=== PATIENT | female | born 1960 | race Caucasian/White ===

== ENCOUNTER 2022-09-22 15:27 | Outpatient (AMB) | payer OTHER, SELFPAY ==
--- NOTE | 2022-09-22 15:42 | A.OFFPC_ITS ---
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 Accompanied by: Self / Same As Patient Allergies cephalexin [Keflex] Allergy (Unknown, Verified 09/23/22 04:58) Unknown ciprofloxacin Allergy (Unknown, Verified 09/23/22 04:58) Unknown codeine Allergy (Unknown, Verified 09/23/22 04:58) codeine phosphate- unknown doxycycline Allergy (Unknown, Verified 09/23/22 04:58) pruritic rash duloxetine [Cymbalta] Allergy (Unknown, Verified 09/23/22 04:58) swelling of throat and tongue levofloxacin Allergy (Unknown, Verified 09/23/22 04:58) Unknown NSAIDS (Non-Steroidal Anti-Inflamma Allergy (Unknown, Verified 09/23/22 04:58) Unknown penicillin V Allergy (Unknown, Verified 09/23/22 04:58) Unknown prednisone Allergy (Unknown, Verified 09/23/22 04:58) Unknown Sulfa (Sulfonamide Antibiotics) Allergy (Unknown, Verified 09/23/22 04:58) Unknown theophylline Allergy (Unknown, Verified 09/23/22 04:58) Unknown clarithromycin Adverse Reaction (Unknown, Verified 09/23/22 04:58) Unknown insect sting Allergy (Unknown, Uncoded 09/23/22 04:58) anaphylaxis Medication List - Last Reconciled 09/23/22 by Hector Paige MD aspirin 81 mg PO DAILY 90 days carisoprodol 350 mg PO QID PRN 28 days cetirizine 10 mg PO DAILY cholecalciferol (vitamin D3) 50 mcg PO DAILY citalopram 20 mg PO DAILY clonazepam 1 mg PO BID PRN cyanocobalamin (vitamin B-12) 1,000 mcg PO DAILY epinephrine (EpiPen 2-Jonathon) 0.3 mg (0.3 mL) IM ONCE famotidine 20 mg PO BID folic acid 1 mg PO DAILY furosemide 20 mg PO BID PRN gabapentin 600 mg (2 x 300 mg) PO TID 30 days ipratropium-albuterol 0.5 mg-3 mg(2.5 mg base)/3 mL 3 mL inhalation QID [LIGHTWEIGHT CANE As directed] lisinopril 20 mg PO DAILY 90 days metoprolol tartrate 25 mg PO DAILY miscellaneous medical supply 1 ea miscellaneous DAILY miscellaneous medical supply 1 ea miscellaneous .5-6 times Daily miscellaneous medical supply 1 ea miscellaneous .3-5 times daily miscellaneous medical supply 1 ea miscellaneous .4-5 times morphine 15 mg PO QID PRN 28 days morphine ER 60 mg PO Q8H 28 days mupirocin 2% 1 appl topical TID 14 days [NASAL CANNULA for OXYGEN As directed] pyridoxine (vitamin B6) 50 mg PO DAILY 90 days [ROLLATOR As directed] tiotropium bromide 2.5 mcg/actuation (Spiriva Respimat) 2 puffs inhalation QAM 3 0 days Ventolin HFA 90 mcg/actuation (albuterol sulfate) 2 puffs inhalation Q4H PRN NS Tobacco use date assessed: 09/22/22 Dental Screening Dental Screen Date: 09/22/22 Did you have a dental visit in the last 12 months?: No Did you have a dental problem in the last 6 months where you did not have access to dental care?: No Was dental information given to patient?: No HPI fracture leg a PT order as Well For her Leg HPI Details Patient comes in today for her HDF follow up visit States that she mainly needs a referral to begin physical therapy/rehab for her recent left fibular fracture States that she was helping her family moved their things out of their house and due to her disabilities, was really not doing a lot and was just bringing out some light bags of clothes when her foot caught on something on the floor and caused her to fall on her left leg States that she started experiencing increased pain in her left knee immediately and was not able to stand up on her own She was helped up immediately by her family members but reported increased pain in her left knee with weight-bearing and was subsequently brought to the hospital for further evaluation Patient states that she did not hit her head or suffer any other injuries during her fall X-rays of the left knee done at the hospital revealed a proximal fibular fracture that was nondisplaced Left ankle x-rays revealed a questionable minimal avulsion fracture of the anterior distal talus and proximal navicular seen only on the lateral view She subsequently had a CT of the ankle done, that revealed an acute nondisplaced fracture of the anterior calcaneal process and curvilinear avulsion fracture arising from the dorsal aspect of the talar neck Orthopedic consult was called to further evaluate patient and they eventually recommended a knee immobilizer for the left knee and splint for the left ankle with no surgery indicated She was recommended admission to a rehab center for PT and OT but patient declined and wishes to go home She was instructed to follow-up with her PCP and get a referral for physical therapy as soon as possible Patient states that she is currently still experiencing some pain in her left knee and left ankle although they are mostly manageable States that her current pain medications are also helping with her pain She denies any headaches or dizziness Denies any chest pains, no increased shortness of breath No nausea / vomiting, no abdominal pain No change in bowel habits noted [facility] Medical History Acute kidney injury Acute respiratory failure with hypoxia and hypercapnia Acute systolic CHF (congestive heart failure) Allergic rhinitis Anxiety Asthma Coronary atherosclerosis Depression Fibromyalgia Functional urinary incontinence GERD without esophagitis Impaired fasting glucose Insomnia Lumbar degenerative disc disease Metabolic encephalopathy Obesity (BMI 30-39.9) Pure hypercholesterolemia Smoking Takotsubo cardiomyopathy Vitamin B12 deficiency Vitamin D deficiency Surgical History No pertinent past surgical history Family History Father Medical history unknown Mother Diabetes Hypertension CVD (cardiovascular disease) Stroke Other Mental health problem Social History Housing: House Alcohol intake: never Patient Tobacco Use Status: Current everyday Tobacco user Tobacco use type: Cigarette Cigarettes Per Day: 5 e-Cigarette/Vaping Use: Never Used Second Hand Smoke Exposure: Yes service: No Current occupational status: disabled Cognitive needs: No Hearing needs: No Vision needs: Yes Questionnaire PHQ-9 Over the last 2 weeks, how often have you been bothered by any of the following problems? 1. Little interest or pleasure in doing things: nearly every day 2. Feeling down, depressed, or hopeless: nearly every day 3. Trouble falling or staying asleep, or sleeping too much: nearly every day 4. Feeling tired or having little energy: nearly every day 5. Poor appetite or overeating: several days 6. Feeling bad about yourself - or that you are a failure or have let yourself or your family down: not at all 7. Trouble concentrating on things, such as reading the newspaper or watching television: several days 8. Moving or speaking so slowly that other people could have noticed. Or the opposite - being so fidgety or restless that you have been moving around a lot more than usual: not at all 9. Thoughts that you would be better off or of hurting yourself in some way: not at all Total score: 14 Depression Screening Interpretation: Positive Depression Screening Follow-up: Existing condition and In treatment 56391 - PHQ-9 Billing: Yes Source: Developed by Drs. Jose Chan, Shana Castro, Edison Lang and colleagues, with an educational shruthi from [employer]. Thrive Questionnaire Date Thrive assessed: 09/22/22 I am a: Patient What is your living situation today?: I have a steady place to live Within the past 12 months, did the food you bought not last and you didn't have the money to get more?: Never true Within the past 12 months, did you worry whether your food would run out before you got money to buy more?: Never true Do you have trouble paying for medicines?: No Do you have trouble getting transportation to medical appointments?: No Do you have trouble paying your heating and electricity bill?: No Do you have trouble taking care of your child, family member or friend?: No Do you have trouble with day-to-day activities such as bathing, preparing meals, shopping, managing finances, etc.?: No Are you currently unemployed and looking for a job?: No Are you interested in more education?: No Currently or been in a relationship where the following occur: no concerns repo rted AUDIT C Alcohol Use Questionnaire (AUDIT-C) 1. How often do you have a drink containing alcohol?: Never 3. How often do you have six or more drinks on one occasion?: Never Total Score: 0 Score Reviewed/Action Taken: Yes NIKOS-7 AMB Questionnaire NIKOS-7 Date NIKOS - 7 assessed: 09/22/22 Feeling nervous, anxious, or on edge: 3 = Nearly every day Not being able to stop or control worryin = Nearly every day Worrying too much about different things: 3 = Nearly every day Trouble relaxin = Nearly every day Being so restless that it is hard to sit still: 3 = Nearly every day Becoming easily annoyed or irritable: 3 = Nearly every day Feeling afraid as if something awful might happen: 3 = Nearly every day Total NIKOS-7 score (0-4 normal; 5-9 mild; 10-14 moderate; 15-21 severe): 21 Source: Developed by Drs. Jose Chan, Shana Castro, Edison Lang and colleagues, with an educational shruthi from [employer]. Review of Systems Const Reports fatigue, Denies fever(s) and Denies headache(s) ENT Denies dysphagia, Denies dizziness, Denies headache(s), Reports neck pain ( chronic), Denies odynophagia and Denies sore throat Card Denies chest pain, Denies palpitations and Reports dyspnea on exertion (mild) Resp Denies chest congestion, Reports cough (coughs up some thick whitish phlegm at times), Reports dyspnea on exertion (mild) and Denies wheezing GI Denies abdominal pain, Denies constipation, Denies dysphagia, Denies heartburn, Denies diarrhea, Denies nausea, Denies odynophagia and Denies vomiting Denies nocturia and Denies dysuria Musc Reports back pain (over the lumbar spine - chronic), Reports arthralgias (over the left knee and left ankle) and Reports neck pain (chronic) Neuro Denies dizziness and Denies headache(s) Endo Reports fatigue and Denies palpitations Aller/Immun Denies wheezing Physical exam (Primary Care) Vital Signs: Last Vital Signs Pulse 79 09/22/22 15:43 BP 120/82 09/22/22 15:43 Pulse Ox 91 L 09/22/22 15:43 Oxygen Delivery Method Room Air 09/22/22 15:43 Tobacco/Smoking Status: Tobacco use Status Tobacco use date assessed 09/22/22 09/22/22 15:44 Patient Tobacco Use Status Current everyday Tobacco 09/22/22 15:44 Tobacco use type Cigarette 09/22/22 15:44 e-Cigarette/Vaping Use Never Used 09/22/22 15:44 PHQ-9: PHQ-9 Score PHQ-9: Total score 14 09/22/22 16:53 Depression Screening Interpretation: Positive Depression Screening Follow-up: Existing condition and In treatment Thrive Assessment: Date of Thrive Assessment Date Thrive assessed 09/22/22 09/22/22 15:44 Currently or been in a relationship where the following occur: no concerns r eported Const General: no acute distress and alert HENMT Ears: TM's normal bilaterally and EAC's normal Throat: Yes posterior oropharynx normal and Yes tonsils normal (no TP congestion) Neck Neck: Yes no lymphadenopathy and Yes supple Resp Auscultation: no crackles, no rales, rhonchi (occasional), no wheezes and diminished lung sounds (slightly) bilateral Cardio Rate: regular rate Rhythm: regular rhythm Heart sounds: no murmurs GI Palpation (GI): Soft to palpation and nontender Auscultation: normal bowel sounds Back/Spine/Pelvis Cervical Spine: Cervical spine tenderness Thoracic/Lumbar Spine: lumbar spinal tenderness Skin Rashes: no rashes Extrem Other: (+) soft cast/knee immobilizer on the left leg/knee/ankle - unable to fully examine left knee and ankle at present General: Yes no clubbing, cyanosis or edema Assessment and Plan Assessment & Plan (1) Fracture, fibula, proximal: Code(s): S82.839A - Other fracture of upper and lower end of unspecified fibula, initial encounter for closed fracture Qualifiers: Encounter type: sequela Fracture type: closed Fracture morphology: unspecified fracture morphology Laterality: left Qualified Code(s): S82.832S - Other fracture of upper and lower end of left fibula, sequela Plan: X-rays of the left knee done at [facility] a couple of weeks ago revealed (+) non-displaced fracture of the proximal fibula Orthopedics recommended a knee immobilizer with symptomatic treatment of pain; no surgery is indicated at this time She was advised referral to a rehab center but patient declined and wished to go home at the time and get outpatient physical therapy instead (2) Closed left ankle fracture: Code(s): S82.892A - Other fracture of left lower leg, initial encounter for closed fracture Qualifiers: Encounter type: sequela Qualified Code(s): S82.892S - Other fracture of left lower leg, sequela Plan: Left ankle x-rays done a couple of weeks ago revealed (+) questionable minimal avulsion fractures of the anterior distal talus and proximal navicular seen only on the lateral view A left ankle CT was done subsequently, which revealed an acute nondisplaced fracture of the anterior calcaneal process and curvilinear avulsion fracture arising from the dorsal aspect of the talar neck Patient had her left ankle splinted and was recommended to also undergo some physical therapy evaluation for her ankle together with her knee Plan Will refer patient to physical therapy for further evaluation and management of her left knee and left ankle fracture Follow up with orthopedics as scheduled Follow up as scheduled in 2 months Orders: Orders PT Evaluation and Treatment 09/22/22 S82.839A - Other fracture of upper and lower end of unspecified fibula, initial encounter for closed fracture, S82.892A - Other fracture of left lower leg, initial encounter for closed fracture Coding Level of Care Code Est Pt Level 3 (72425) Diagnoses Fracture, fibula, proximal S82.832S Encounter type: sequela Fracture type: closed Fracture morphology: unspecified fracture morphology Laterality: left Closed left ankle fracture S82.892S Encounter type: sequela
[2022-09-22 15:43] VITALS: BP 120/82; PULSE 79; O2SAT 91
== END 2022-09-22 16:55 | disposition home or self-care (01) ==
PROVIDERS: PCP Internal Medicine; Visit Provider Internal Medicine
DX: S82.832S Other fracture of upper and lower end of left fibula, sequela (principal); S82.892S Other fracture of left lower leg, sequela
CPT/HCPCS: 99213

== ENCOUNTER 2022-10-15 14:17 | Outpatient (AMB) | payer OTHER, SELFPAY ==
[2022-10-15 14:22] VITALS: BP 120/78; PULSE 68; O2SAT 92
--- NOTE | 2022-10-15 14:22 | A.OFFPC_ITS ---
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 Accompanied by: Self / Same As Patient Allergies cephalexin [Keflex] Allergy (Unknown, Verified 10/20/22 04:19) Unknown ciprofloxacin Allergy (Unknown, Verified 10/20/22 04:19) Unknown codeine Allergy (Unknown, Verified 10/20/22 04:19) codeine phosphate- unknown doxycycline Allergy (Unknown, Verified 10/20/22 04:19) pruritic rash duloxetine [Cymbalta] Allergy (Unknown, Verified 10/20/22 04:19) swelling of throat and tongue levofloxacin Allergy (Unknown, Verified 10/20/22 04:19) Unknown NSAIDS (Non-Steroidal Anti-Inflamma Allergy (Unknown, Verified 10/20/22 04:19) Unknown penicillin V Allergy (Unknown, Verified 10/20/22 04:19) Unknown prednisone Allergy (Unknown, Verified 10/20/22 04:19) Unknown Sulfa (Sulfonamide Antibiotics) Allergy (Unknown, Verified 10/20/22 04:19) Unknown theophylline Allergy (Unknown, Verified 10/20/22 04:19) Unknown clarithromycin Adverse Reaction (Unknown, Verified 10/20/22 04:19) Unknown insect sting Allergy (Unknown, Uncoded 10/20/22 04:19) anaphylaxis Medication List - Last Reconciled 10/20/22 by Hector Paige MD aspirin 81 mg PO DAILY 90 days azithromycin take 500 mg today (day 1), then 250 mg for 4 days (days 2-5) PO carisoprodol 350 mg PO QID PRN 28 days cetirizine 10 mg PO DAILY cholecalciferol (vitamin D3) 50 mcg PO DAILY citalopram 20 mg PO DAILY clonazepam 1 mg PO BID PRN cyanocobalamin (vitamin B-12) 1,000 mcg PO DAILY epinephrine (EpiPen 2-Jonathon) 0.3 mg (0.3 mL) IM ONCE famotidine 20 mg PO BID folic acid 1 mg PO DAILY furosemide 20 mg PO BID PRN gabapentin 600 mg (2 x 300 mg) PO TID 30 days ipratropium-albuterol 0.5 mg-3 mg(2.5 mg base)/3 mL 3 mL inhalation QID [LIGHTWEIGHT CANE As directed] lisinopril 20 mg PO DAILY 90 days metoprolol tartrate 25 mg PO DAILY miscellaneous medical supply 1 ea miscellaneous DAILY miscellaneous medical supply 1 ea miscellaneous .5-6 times Daily miscellaneous medical supply 1 ea miscellaneous .3-5 times daily miscellaneous medical supply 1 ea miscellaneous .4-5 times morphine 15 mg PO QID PRN 28 days morphine ER 60 mg PO Q8H 28 days mupirocin 2% 1 appl topical TID 14 days [NASAL CANNULA for OXYGEN As directed] pyridoxine (vitamin B6) 50 mg PO DAILY 90 days [ROLLATOR As directed] tiotropium bromide 2.5 mcg/actuation (Spiriva Respimat) 2 puffs inhalation QAM 30 days Ventolin HFA 90 mcg/actuation (albuterol sulfate) 2 puffs inhalation Q4H PRN NS Tobacco use date assessed: 10/15/22 Dental Screening Dental Screen Date: 10/15/22 Did you have a dental visit in the last 12 months?: No Did you have a dental problem in the last 6 months where you did not have access to dental care?: No Was dental information given to patient?: No HPI Stitches Removal-Right Calf HPI Details Patient comes in today mainly for removal of the stitches/sutures placed on her right lower leg at the emergency room about 10 days ago on 10/06/22 States that she was brought to the ER for her right leg injury after she accidentally ran into/fell on the edge of a metal bed frame inside the hotel room where she is currently staying at, incurring the injury She was reportedly somewhat hypoxic and hypotensive when she arrived in the ER, and these as well as her mental status gradually improved with IV fluid hydration and oxygen inhalation Her right lower leg injury was sutured and recalls being advised that she had about 28 stitches placed She was started empirically on oral Doxycycline x7 days and instructed to see her PCP and have the sutures removed in 10 days' time Patient states that her family helps her clean and dress her right lower leg injury but is struggling with this as her right lower leg wound is quite long and is mostly over the posteromedial aspect of her leg She has also noticed a frequent and constant oozing of blood from her wound has her dressing is often soaked with blood after a couple of days No other acute complaints or symptoms are noted [facility] Medical History Acute kidney injury Acute respiratory failure with hypoxia and hypercapnia Acute systolic CHF (congestive heart failure) Allergic rhinitis Anxiety Asthma Coronary atherosclerosis Depression Fibromyalgia Functional urinary incontinence GERD without esophagitis Impaired fasting glucose Insomnia Lumbar degenerative disc disease Metabolic encephalopathy Obesity (BMI 30-39.9) Pure hypercholesterolemia Smoking Takotsubo cardiomyopathy Vitamin B12 deficiency Vitamin D deficiency Surgical History No pertinent past surgical history Family History Father Medical history unknown Mother Diabetes Hypertension CVD (cardiovascular disease) Stroke Other Mental health problem Social History Housing: House Alcohol intake: never Patient Tobacco Use Status: Current everyday Tobacco user Tobacco use type: Cigarette Cigarettes Per Day: 5 e-Cigarette/Vaping Use: Never Used Second Hand Smoke Exposure: Yes service: No Current occupational status: disabled Cognitive needs: No Hearing needs: No Vision needs: Yes Questionnaire PHQ-9 Over the last 2 weeks, how often have you been bothered by any of the following problems? 1. Little interest or pleasure in doing things: nearly every day 2. Feeling down, depressed, or hopeless: nearly every day 3. Trouble falling or staying asleep, or sleeping too much: nearly every day 4. Feeling tired or having little energy: nearly every day 5. Poor appetite or overeating: several days 6. Feeling bad about yourself - or that you are a failure or have let yourself or your family down: not at all 7. Trouble concentrating on things, such as reading the newspaper or watching television: several days 8. Moving or speaking so slowly that other people could have noticed. Or the opposite - being so fidgety or restless that you have been moving around a lot more than usual: not at all 9. Thoughts that you would be better off or of hurting yourself in some way: not at all Total score: 14 Depression Screening Interpretation: Positive Depression Screening Follow-up: Existing condition and In treatment 92465 - PHQ-9 Billing: Yes Source: Developed by Drs. Jose Chan, Edison Virk and colleagues, with an educational shruthi from [employer]. Thrive Questionnaire Date Thrive assessed: 10/15/22 I am a: Patient What is your living situation today?: I have a steady place to live Within the past 12 months, did the food you bought not last and you didn't have the money to get more?: Never true Within the past 12 months, did you worry whether your food would run out before you got money to buy more?: Never true Do you have trouble paying for medicines?: No Do you have trouble getting transportation to medical appointments?: No Do you have trouble paying your heating and electricity bill?: No Do you have trouble taking care of your child, family member or friend?: No Do you have trouble with day-to-day activities such as bathing, preparing meals, shopping, managing finances, etc.?: No Are you currently unemployed and looking for a job?: No Are you interested in more education?: No Please select the resources that you would like help with: None Currently or been in a relationship where the following occur: no concerns reported AUDIT C Alcohol Use Questionnaire (AUDIT-C) 1. How often do you have a drink containing alcohol?: Never 3. How often do you have six or more drinks on one occasion?: Never Total Score: 0 Score Reviewed/Action Taken: Yes NIKOS-7 AMB Questionnaire NIKOS-7 Date NIKOS - 7 assessed: 10/15/22 Feeling nervous, anxious, or on edge: 3 = Nearly every day Not being able to stop or control worryin = Nearly every day Worrying too much about different things: 3 = Nearly every day Trouble relaxin = Nearly every day Being so restless that it is hard to sit still: 3 = Nearly every day Becoming easily annoyed or irritable: 3 = Nearly every day Feeling afraid as if something awful might happen: 3 = Nearly every day Total NKIOS-7 score (0-4 normal; 5-9 mild; 10-14 moderate; 15-21 severe): 21 Source: Developed by Shana Thornton Kurt Kroenke and colleagues, with an educational shruthi from [employer]. Review of Systems Const Reports fatigue, Denies fever(s) and Denies headache(s) ENT Denies dysphagia, Denies dizziness, Denies headache(s), Reports neck pain (chronic), Denies odynophagia and Denies sore throat Card Denies chest pain, Denies palpitations and Reports dyspnea on exertion (mild) Resp Denies chest congestion, Reports cough (coughs up some thick whitish phlegm at times), Reports dyspnea on exertion (mild) and Denies wheezing GI Denies abdominal pain, Denies constipation, Denies dysphagia, Denies heartburn, Denies diarrhea, Denies nausea, Denies odynophagia and Denies vomiting Denies nocturia and Denies dysuria Musc Reports back pain (over the lumbar spine - chronic), Reports arthralgias (over the left knee and left ankle) and Reports neck pain (chronic) Skin/Breast Details: (+) long wound over the posteromedial aspect of the right lower leg, with multiple sutures in place; wound appears to have failed to close/heal completely and is still oozing some blood-tinged discharge in several places Neuro Denies dizziness and Denies headache(s) Endo Reports fatigue and Denies palpitations Aller/Immun Denies wheezing Physical exam (Primary Care) Vital Signs: Last Vital Signs Pulse 68 10/15/22 14:22 BP 120/78 10/15/22 14:22 Pulse Ox 92 10/15/22 14:22 Oxygen Delivery Method Room Air 10/15/22 14:22 Tobacco/Smoking Status: Tobacco use Status Tobacco use date assessed 10/15/22 10/15/22 14:24 Patient Tobacco Use Status Current everyday Tobacco 10/15/22 14:24 Tobacco use type Cigarette 10/15/22 14:24 e-Cigarette/Vaping Use Never Used 10/15/22 14:24 PHQ-9: PHQ-9 Score PHQ-9: Total score 14 10/15/22 15:51 Depression Screening Interpretation: Positive Depression Screening Follow-up: Existing condition and In treatment Thrive Assessment: Date of Thrive Assessment Date Thrive assessed 10/15/22 10/15/22 14:24 Currently or been in a relationship where the following occur: no concerns reported Const General: no acute distress and alert HENMT Throat: Yes posterior oropharynx normal and Yes tonsils normal (no TP congestion) Neck Neck: Yes no lymphadenopathy and Yes supple Resp Auscultation: no crackles, no rales, rhonchi (occasional), no wheezes and diminished lung sounds (slightly) bilateral Cardio Rate: regular rate Rhythm: regular rhythm Heart sounds: no murmurs GI Palpation (GI): Soft to palpation and nontender Auscultation: normal bowel sounds Back/Spine/Pelvis Cervical Spine: Cervical spine tenderness Thoracic/Lumbar Spine: lumbar spinal tenderness Skin Other: (+) long laceration injury over the posteromedial aspect of the right lower leg that extends almost from her knee to her ankle; the wound appears to have failed to heal completely and the avulsed skin appears to have come off the sutures in several places (a few sutures appear to be only on one side of the wound); Rashes: no rashes Extrem Other: (+) still (+) left knee and ankle tenderness (from when she sutained her left leg/ankle fracture a few weeks ago General: Yes no clubbing, cyanosis or edema Assessment and Plan Assessment & Plan (1) Laceration of right lower leg: Code(s): S81.811A - Laceration without foreign body, right lower leg, initial encounter Qualifiers: Encounter type: sequela Qualified Code(s): S81.811S - Laceration without foreign body, right lower leg, sequela Plan: Spent over 45 minutes removing over 20 sutures over patient's long and complicated laceration injury over the posteromedial aspect of her right lower leg Is advised that because of the nature of her injury and that a large portion of the avulsed skin on her right leg is very thin and friable, her injury did not close up or heal up completely and that some of the sutures are actually now only on one side of the wound as the skin that they are holding in place already broke off from the sutures Advised that her wound also appears to still be oozing blood in several places and we can only give it some time now to allow secondary healing close up her wound completely She has already been treated with Doxycycline for 7 days when her wound was sutured in the ER 10 days ago I have again cleaned and redressed patient's wound on her right lower leg and also applied some nonstick dressing and wrap her right lower leg as well with some pressure dressing and advised patient and her to continue with daily wound care Because of the nature of her injury and with her recent lower extremity fracture, which significantly limits patient's mobility,I will refer her to [facility] for nursing and wound care services Plan Follow up as scheduled next month Orders: [facility]errals [facility] Referral S81.811A - Laceration without f oreign body, right lower leg, initial encounter Coding Level of Care Code Est Pt Level 4 (78265) Diagnoses Laceration of right lower leg S81.811S Encounter type: sequela Time Spent (min) 45 Comment Spent >45 min removing multiple sutures from patient's long laceration inj on R lower leg
== END 2022-10-15 15:53 | disposition home or self-care (01) ==
PROVIDERS: PCP Internal Medicine; Visit Provider Internal Medicine
DX: S81.811S Laceration without foreign body, right lower leg, sequela (principal)
CPT/HCPCS: 99214

== ENCOUNTER 2022-11-04 14:29 | Outpatient (AMB) | payer OTHER, SELFPAY ==
--- NOTE | 2022-11-04 14:30 | A.OFFPC_ITS ---
Vital Signs 11/04/22 14:34 11/04/22 15:38 BMI Reason not done Patient refused/unable BP 70/40 L 90/60 Blood Pressure Location Rt brachial Rt brachial Position Sitting Sitting Pulse 68 Pulse Source Pulse Oximeter Pulse Oximetry (%) 95 Oxygen Delivery Method Room Air Intake Visit Reasons: f/u for wound Intake Note: Patient here for wound follow up Communications Strategist Required: No Accompanied by: Allergies cephalexin [Keflex] Allergy (Unknown, Verified 11/04/22 15:27) Unknown ciprofloxacin Allergy (Unknown, Verified 11/04/22 15:27) Unknown codeine Allergy (Unknown, Verified 11/04/22 15:27) codeine phosphate- unknown doxycycline Allergy (Unknown, Verified 11/04/22 15:27) pruritic rash duloxetine [Cymbalta] Allergy (Unknown, Verified 11/04/22 15:27) swelling of throat and tongue levofloxacin Allergy (Unknown, Verified 11/04/22 15:27) Unknown NSAIDS (Non-Steroidal Anti-Inflamma Allergy (Unknown, Verified 11/04/22 15:27) Unknown penicillin V Allergy (Unknown, Verified 11/04/22 15:27) Unknown prednisone Allergy (Unknown, Verified 11/04/22 15:27) Unknown Sulfa (Sulfonamide Antibiotics) Allergy (Unknown, Verified 11/04/22 15:27) Unknown theophylline Allergy (Unknown, Verified 11/04/22 15:27) Unknown clarithromycin Adverse Reaction (Unknown, Verified 11/04/22 15:27) Unknown insect sting Allergy (Unknown, Uncoded 11/04/22 15:27) anaphylaxis Medication List - Last Reconciled 11/04/22 by Hector Paige MD aspirin 81 mg PO DAILY 90 days carisoprodol 350 mg PO QID PRN 28 days cetirizine 10 mg PO DAILY cholecalciferol (vitamin D3) 50 mcg PO DAILY citalopram 20 mg PO DAILY clonazepam 1 mg PO BID PRN collagenase clostridium histo. (Santyl) 1 appl topical DAILY cyanocobalamin (vitamin B-12) 1,000 mcg PO DAILY epinephrine (EpiPen 2-Jonathon) 0.3 mg (0.3 mL) IM ONCE famotidine 20 mg PO BID folic acid 1 mg PO DAILY furosemide 20 mg PO BID PRN gabapentin 600 mg (2 x 300 mg) PO TID 30 days ipratropium-albuterol 0.5 mg-3 mg(2.5 mg base)/3 mL 3 mL inhalation QID [LIGHTWEIGHT CANE As directed] [LIGHTWEIGHT WHEELCHAIR As directed] lisinopril 20 mg PO DAILY 90 days metoprolol succinate ER 100 mg PO DAILY miscellaneous medical supply 1 ea miscellaneous DAILY miscellaneous medical supply 1 ea miscellaneous .5-6 times Daily miscellaneous medical supply 1 ea miscellaneous .3-5 times daily miscellaneous medical supply 1 ea miscellaneous .4-5 times morphine 15 mg PO QID PRN 28 days morphine ER 60 mg PO Q8H 28 days mupirocin 2% 1 appl topical TID 14 days [NASAL CANNULA for OXYGEN As directed] pyridoxine (vitamin B6) 50 mg PO DAILY 90 days [ROLLATOR As directed] silver-hydrocolloid dressing 1.2-3.5 X 14 %- (Aquacel-AG) apply to wounds on lower extremities TID topically; tiotropium bromide 2.5 mcg/actuation (Spiriva Respimat) 2 puffs inhalation QAM 30 days Ventolin HFA 90 mcg/actuation (albuterol sulfate) 2 puffs inhalation Q4H PRN NS Tobacco use date assessed: 10/15/22 Dental Screening Dental Screen Date: 11/04/22 Did you have a dental visit in the last 12 months?: No Did you have a dental problem in the last 6 months where you did not have access to dental care?: No Was dental information given to patient?: Patient has dentist HPI f/u for wound HPI Details Patient comes in today for her follow-up visit States that she still has not been seen by [facility] for wound care yet on her right lower leg and that her and herself are the ones that are cleaning and dressing her right lower leg wound regularly States that she recently also appears to have a burn injury on her left lower leg as it has some bullae forming States that she feels okay otherwise She denies any headaches or dizziness; denies any fever Denies any chest pains, no increased shortness of breath No nausea/ vomiting, no abdominal pain No change in bowel habits noted [facility] Medical History Allergic rhinitis Vitamin D deficiency Functional urinary incontinence Takotsubo cardiomyopathy Coronary atherosclerosis Acute kidney injury Acute respiratory failure with hypoxia and hypercapnia Acute systolic CHF (congestive heart failure) Metabolic encephalopathy Obesity (BMI 30-39.9) Smoking Depression Anxiety Insomnia Vitamin B12 deficiency Impaired fasting glucose GERD without esophagitis Pure hypercholesterolemia Fibromyalgia Lumbar degenerative disc disease Asthma Surgical History No pertinent past surgical history Family History Father Medical history unknown Mother Diabetes Hypertension CVD (cardiovascular disease) Stroke Other Mental health problem Social History Housing: House Alcohol intake: never Patient Tobacco Use Status: Current everyday Tobacco user Tobacco use type: Cigarette Cigarettes Per Day: 5 e-Cigarette/Vaping Use: Never Used Second Hand Smoke Exposure: Yes service: No Current occupational status: disabled Cognitive needs: No Hearing needs: No Vision needs: Yes Questionnaire Thrive Questionnaire Date Thrive assessed: 10/15/22 NIKOS-7 AMB Questionnaire NIKOS-7 Date NIKOS - 7 assessed: 11/04/22 Feeling nervous, anxious, or on edge: 3 = Nearly every day Not being able to stop or control worryin = Nearly every day Worrying too much about different things: 3 = Nearly every day Trouble relaxin = Nearly every day Being so restless that it is hard to sit still: 3 = Nearly every day Becoming easily annoyed or irritable: 3 = Nearly every day Feeling afraid as if something awful might happen: 3 = Nearly every day Total NIKOS-7 score (0-4 normal; 5-9 mild; 10-14 moderate; 15-21 severe): 21 Source: Developed by Drs. Jose Chan, Shana Castro, Edison Lang and colleagues, with an educational shruthi from [employer]. Review of Systems Const Reports fatigue, Denies fever(s) and Denies headache(s) ENT Denies dysphagia, Denies dizziness, Denies headache(s), Reports neck pain (chronic), Denies odynophagia and Denies sore throat Card Denies chest pain, Denies palpitations and Reports dyspnea on exertion (mild) Resp Denies chest congestion, Reports cough (coughs up some thick whitish phlegm at times), Reports dyspnea on exertion (mild) and Denies wheezing GI Denies abdominal pain, Denies constipation, Denies dysphagia, Denies heartburn, Denies diarrhea, Denies nausea, Denies odynophagia and Denies vomiting Denies nocturia and Denies dysuria Musc Reports back pain (over the lumbar spine - chronic), Reports arthralgias (over the left knee and left ankle) and Reports neck pain (chronic) Skin/Breast Details: (+) healing wound over the posteromedial aspect of the right lower leg; wound failed to close/heal when sutured and presently still has minimal serosanguinous drainage; increased erythema over a large area of the left lower leg, with some bullae formation over the anterior aspect Neuro Denies dizziness and Denies headache(s) Endo Reports fatigue and Denies palpitations Aller/Immun Denies wheezing Physical exam (Primary Care) Vital Signs: Last Vital Signs Pulse 68 11/04/22 14:34 BP 90/60 11/04/22 15:38 Pulse Ox 95 11/04/22 14:34 Oxygen Delivery Method Room Air 11/04/22 14:34 Tobacco/Smoking Status: Tobacco use Status Tobacco use date assessed 10/15/22 11/04/22 14:32 Patient Tobacco Use Status Current everyday Tobacco 11/04/22 14:32 Tobacco use type Cigarette 11/04/22 14:32 e-Cigarette/Vaping Use Never Used 11/04/22 14:32 Thrive Assessment: Date of Thrive Assessment Date Thrive assessed 10/15/22 11/04/22 14:32 Const General: no acute distress and alert [facility] Throat: Yes posterior oropharynx normal and Yes tonsils normal (no TP congestion) Neck Neck: Yes no lymphadenopathy and Yes supple Resp Auscultation: no crackles, no rales, rhonchi (occasional), no wheezes and diminished lung sounds (slightly) bilateral Cardio Rate: regular rate Rhythm: regular rhythm Heart sounds: no murmurs GI Palpation (GI): Soft to palpation and nontender Auscultation: normal bowel sounds Back/Spine/Pelvis Cervical Spine: Cervical spine tenderness Thoracic/Lumbar Spine: lumbar spinal tenderness Skin Other: (+) healing long laceration injury over the posteromedial aspect of the right lower leg extending from the knee to the ankle - wound failed to heal completely when sutured; (+) large area of increased erythema over the left lower leg, with some large bullae over the anterior aspect Extrem Other: (+) still (+) left knee and ankle tenderness (from when she sutained her left leg/ankle fracture a few weeks ago General: Yes no clubbing, cyanosis or edema Assessment and Plan Assessment & Plan (1) Wound of right lower extremity: Code(s): S81.801A - Unspecified open wound, right lower leg, initial encounter Qualifiers: Encounter type: sequela Qualified Code(s): S81.801S - Unspecified open wound, right lower leg, sequela Plan: Her right lower leg wound was initially sutured in the ER a couple of weeks ago but failed to close by primary healing The sutures were removed a few days ago and she was instructed to continue with daily wound care and the only option left at this time is to allow secondary healing to occur over time Will refer patient to the wound clinic for further management and to help facilitate wound healing Rx for Santyl and Aquacel-AG provided to patient for use on her right leg wound (2) Left leg injury: Code(s): S89.92XA - Unspecified injury of left lower leg, initial encounter Qualifiers: Encounter type: sequela Qualified Code(s): S89.92XS - Unspecified injury of left lower leg, sequela Plan: Patient appears to have suffered a second degree burn injury over her left lower leg Will also refer her to the wound clinic to help look into this as she appears to have large bullae formations over her left lower leg Will start her for now on Silvadene cream apply BID PRN; is also instructed on daily wound care for her left leg (3) Asthma: Code(s): J45.909 - Unspecified asthma, uncomplicated Qualifiers: Asthma complication type: unspecified Asthma persistence: persistent Asthma severity: moderate Qualified Code(s): J45.40 - Moderate persistent asthma, uncomplicated Plan: States that her asthma has been somewhat better controlled lately Continue Spiriva Respimat 2.5 mcg 2 puffs once a day, Ventolin HFA 2 puffs 4 times a day as needed and Montelukast 10 mg QD Continue nebulization Tx with Duoneb up to 4 times a day as needed (4) Coronary atherosclerosis: Comment: Cardiac cath done in 2017 showed moderate ostial left main disease at 40-50% angiographically, moderate mid RCA disease at 60%, mild LCX disease, normal LVEDP; moderate left main and RCA disease seem unrelated to the presentation as V gram suggests mid-cavitary Takotsubo's cardiomyopathy Recommend conservative medical treatment for CAD with aspirin, statins and risk factor modification Code(s): I25.10 - Atherosclerotic heart disease of [place] coronary artery without angina pectoris Qualifiers: Associated angina: unspecified whether angina present Coronary Disease- Associated Artery/Lesion type: [place] artery [place] vs. transplanted heart: [place] heart Qualified Code(s): I25.10 - Atherosclerotic heart disease of [place] coronary artery without angina pectoris Plan: Continue Aspirin 81 mg QD and Metoprolol ER 25 mg QD (5) Takotsubo cardiomyopathy: Comment: Echocardiogram done showed reduced ejection fraction of 25-35% with regional wall motion abnormalities Code(s): I51.81 - Takotsubo syndrome Plan: Appears compensated based on her current symptoms; symptoms have improved with IV diuresis in the past Reinforced fluid restriction Continue Furosemide 20 mg BID, Lisinopril 20 mg QD and Metoprolol ER 25 mg QD Follow up with cardiology as scheduled (6) Pure hypercholesterolemia: Code(s): E78.00 - Pure hypercholesterolemia, unspecified Plan: Reinforced low cholesterol diet Has not had any follow up labs done in over 3 years now and is instructed to try and get her labs done [facility] - orders are printed out and handed to patient as she usually goes to [facility] for all of her lab works (7) Lumbar degenerative disc disease: Code(s): M51.36 - Other intervertebral disc degeneration, lumbar region Plan: Reinforced activity and weight-lifting restrictions Continue Morphine ER 60 mg q 8 hours PRN, Morphine IR 15 mg QID PRN and Carisoprodol 350 mg QID PRN (8) Fibromyalgia: Code(s): M79.7 - Fibromyalgia Plan: Reinforced regular exercise (as tolerated) and increased physical activity to help manage her fibromyalgia symptoms better although patient's activity tolerance is very limited so this is probably not realistic and not to be expected Her recent ankle fracture also makes physical activities even more challenging for her Continue Gabapentin 600 mg capsules TID (9) GERD without esophagitis: Code(s): K21.9 - Gastro-esophageal reflux disease without esophagitis Plan: Dietary restrictions reinforced Continue Famotidine 20 mg BID PRN (10) Impaired fasting glucose: Code(s): R73.01 - Impaired fasting glucose Plan: Reinforced low calorie diet/exercise as tolerated Will recheck her FBS and HgbA1c [facility] for follow up (11) Allergic rhinitis: Code(s): J30.9 - Allergic rhinitis, unspecified Qualifiers: Allergic rhinitis seasonality: unspecified Allergic rhinitis trigger: unspecified Qualified Code(s): J30.9 - Allergic rhinitis, unspecified Plan: Continue Cetirizine 10 mg QD PRN (12) Vitamin D deficiency: Code(s): E55.9 - Vitamin D deficiency, unspecified Plan: Continue Vitamin D3 2000 units QD (13) Vitamin B12 deficiency: Code(s): E53.8 - Deficiency of other specified B group vitamins Plan: Continue Vitamin B12 tablets 1000 mcg QD (14) Insomnia: Code(s): G47.00 - Insomnia, unspecified Qualifiers: Insomnia type: unspecified Qualified Code(s): G47.00 - Insomnia, unspecified Plan: Sleep hygiene reinforced - states that Lorazepam helps with her sleep at night (15) Anxiety: Code(s): F41.9 - Anxiety disorder, unspecified Plan: Continue Clonazepam 1 mg BID PRN (16) Depression: Code(s): F32.9 - Major depressive disorder, single episode, unspecified Qualifiers: Depression Type: unspecified Qualified Code(s): F32.9 - Major depressive disorder, single episode, unspecified Plan: Continue Citalopram 20 mg QD Follow up with psychiatry as scheduled (17) Smoking: Code(s): F17.200 - Nicotine dependence, unspecified, uncomplicated Plan: Counseled again on smoking cessation (18) Obesity (BMI 30-39.9): Code(s): E66.9 - Obesity, unspecified Plan: Reinforced diet; exercise and weight loss are unrealistic given patient's physical issues and comorbidities Plan Follow up in 3 months Orders: Orders TSH reflex Free T4 11/04/22 I95.9 - Hypotension, unspecified, K21.9 - Gastro- esophageal reflux disease without esophagitis, S81.801A - Unspecified open wound, right lower leg, initial encounter Complete Blood Count Auto Diff 11/04/22 I10 - Essential (primary) hypertension, I95.9 - Hypotension, unspecified, K21.9 - Gastro-esophageal reflux disease without esophagitis, S81.801A - Unspecified open wound, right lower leg, initial encounter Comprehensive Met. Panel 11/04/22 I95.9 - Hypotension, unspecified, K21.9 - Gastro-esophageal reflux disease without esophagitis, S81.801A - Unspecified open wound, right lower leg, initial encounter Vitamin D 25-OH Total 11/04/22 E55.9 - Vitamin D deficiency, unspecified, I95.9 - Hypotension, unspecified, K21.9 - Gastro-esophageal reflux disease without esophagitis, S81.801A - Unspecified open wound, right lower leg, initial encounter Referrals Wound Care Referral S81.801A - Unspecified open wound, right lower leg, initial encounter, S89.92XA - Unspecified injury of left lower leg, initial encounter Medications: New collagenase clostridium histo. (Santyl) 1 appl topical DAILY 90 grams 1RF S81.801A - Unspecified open wound, right lower leg, initial encounter silver-hydrocolloid dressing 1.2-3.5 X 14 %- (Aquacel-AG) apply to wounds on lower extremities TID topically; 10 ea 5RF S81.801A - Unspecified open wound, right lower leg, initial encounter silver sulfadiazine 1% (Silvadene) apply a 1.5 mm thickness to burn injury on left lower leg 1 appl topical BID 50 grams 0RF Coding Level of Care Code Est Pt Level 4 (44566) Diagnoses Wound of right lower extremity, sequela S81.801S Encounter type: sequela Injury of left lower extremity, sequela S89.92XS Encounter type: sequela Moderate persistent asthma, unspecified whether complicated J45.40 Asthma complication type: unspecified Asthma persistence: persistent Asthma severity: moderate Atherosclerosis of [place] coronary artery of [place] heart, unspecified whether angina present I25.10 Associated angina: unspecified whether angina present Coronary Disease-Associated Artery/Lesion type: [place] artery [place] vs. transplanted heart: [place] heart Takotsubo cardiomyopathy I51.81 Pure hypercholesterolemia E78.00 Lumbar degenerative disc disease M51.36 Fibromyalgia M79.7 GERD without esophagitis K21.9 Impaired fasting glucose R73.01 Allergic rhinitis, unspecified seasonality, unspecified trigger J30.9 Allergic rhinitis seasonality: unspecified Allergic rhinitis trigger: unspecified Vitamin D deficiency E55.9 Vitamin B12 deficiency E53.8 Insomnia, unspecified type G47.00 Insomnia type: unspecified Anxiety F41.9 Depression, unspecified depression type F32.9 Depression Type: unspecified Smoking F17.200 Obesity (BMI 30-39.9) E66.9
[2022-11-04 14:34] VITALS: BP 70/40; PULSE 68; O2SAT 95
[2022-11-04 15:38] VITALS: BP 90/60
== END 2022-11-04 15:44 | disposition home or self-care (01) ==
PROVIDERS: PCP Internal Medicine; Visit Provider Internal Medicine
DX: S81.801D Unspecified open wound, right lower leg, subsequent encounter (principal); T24.232D Burn of second degree of left lower leg, subsequent encounter; J45.40 Moderate persistent asthma, uncomplicated; I25.10 Atherosclerotic heart disease of native coronary artery without angina pectoris; M51.36 Other intervertebral disc degeneration, lumbar region; M79.7 Fibromyalgia; K21.9 Gastro-esophageal reflux disease without esophagitis; R73.01 Impaired fasting glucose; J30.9 Allergic rhinitis, unspecified; E55.9 Vitamin D deficiency, unspecified; E53.8 Deficiency of other specified B group vitamins; G47.00 Insomnia, unspecified
CPT/HCPCS: 99214

== ENCOUNTER 2022-11-04 15:52 | Outpatient (REF) | payer OTHER, SELFPAY ==
[2022-11-04 16:14] LABS: MANUAL DIFF FLAG NO
[2022-11-04 16:34] LABS: Basophils Percent Auto 0.4 % (0-2); Eosinophils Absolute Auto 0.2 X10*3/uL (0.0-0.4); Eosinophils Percent Auto 1.9 % (0-4); Hematocrit 37.8 % (37.0-47.0); Hemoglobin 12.8 g/dl (12.0-16.0); Imm Gran Abs Auto 0.03 X10*3/uL (0.00-0.03); Imm Gran Pct Auto 0.3 % (0.0-0.4); Lymphocytes Absolute Auto 3.3 X10*3/uL (1.2-4.9); Lymphocytes Percent Auto 32.8 % (20-40); Mean Corpuscular HGB Conc 33.9 g/dl (31.0-35.0); Mean Corpuscular Hemoglobin 32.3 pg (27.0-33.0); Mean Corpuscular Volume 95.5 fL (80.0-98.0); Mean Platelet Volume 9.1 fL (9.4-12.3); Monocytes Absolute Auto 0.7 X10*3/uL (0.1-1.2); Monocytes Percent Auto 7.1 % (2-11); Neutrophils Absolute Auto 5.9 x10*3/uL (2.0-8.3); Neutrophils Percent Auto 57.5 % (45-73); Platelet Count 229 X10*3/uL (160-400); Red Blood Count 3.96 X10*6/uL (4.20-5.50); Red Cell Distribution Width 11.4 % (11.0-16.0); White Blood Count 10.2 X10*3/uL (4.8-10.8)
[2022-11-04 17:12] LABS: Alanine Aminotransferase 12 U/L (0-31); Albumin Level 3.9 g/dL (3.5-5.0); Alkaline Phosphatase 117 U/L (39-117); Anion Gap 10 (12-20); Aspartate Amino Transferase 17 U/L (5-31); Bilirubin Total 0.3 mg/dL (0.0-1.0); Blood Urea Nitrogen 8 mg/dL (9-16); Calcium 9.9 mg/dL (8.4-10.2); Carbon Dioxide 33 mmol/L (22-29); Chloride 92 mmol/L (96-108); Estimated Glomerular Filt Rate > 60; Glucose Random 86 mg/dL (60-115); Potassium 4.7 mmol/L (3.3-5.1); Sodium 130 mmol/L (135-145); Total Protein 6.8 g/dL (6.5-8.0)
[2022-11-04 17:29] LABS: TSH reflex Free T4 0.96 uIU/mL (0.32-4.0); Vitamin D 25-OH Total 52.6 ng/mL (>30)
== END 2022-11-04 15:53 | disposition home or self-care (01) ==
LOC: HO.LAB 15:52
PROVIDERS: PCP Internal Medicine; Visit Provider Internal Medicine
DX: E55.9 Vitamin D deficiency, unspecified (principal); S81.801A Unspecified open wound, right lower leg, initial encounter; K21.9 Gastro-esophageal reflux disease without esophagitis; I95.9 Hypotension, unspecified; I10 Essential (primary) hypertension
CPT/HCPCS: 36415; 80053; 82306; 84443; 85025

== ENCOUNTER 2023-04-20 13:59 | Outpatient (REF) | payer OTHER, SELFPAY ==
--- NOTE | ~2023-04-20 | US_ITS ---
EXAMINATION: Noninvasive assessment of the bilateral lower extremities with ARTERIAL DUPLEX and ANKLE BRACHIAL INDICES (ABIs). CLINICAL INFORMATION: Peripheral vascular disease TECHNIQUE: Duplex Doppler techniques with waveform analysis and measurement of velocities in the bilateral common femoral, profunda femoris, superficial femoral, popliteal and tibial arteries were performed. Additionally, ankle pulse volume recordings, ankle pressure measurements and ankle brachial indices were obtained of the lower extremity arterial system bilaterally. The study was performed only at rest. COMPARISON: None FINDINGS: DIRECT DUPLEX DOPPLER FINDINGS: RIGHT LEG: Common femoral artery: 119 cm/s, phasicity: Monophasic Profunda femoris artery: 90.1 cm/s, phasicity: Monophasic Superficial femoral artery (proximal): 121 cm/s, phasicity: Monophasic Superficial femoral artery (mid): 106 cm/s, phasicity: Monophasic Superficial femoral artery (distal): 116 cm/s, phasicity: Monophasic Popliteal artery: 81.3 cm/s, phasicity: Monophasic Posterior tibial artery: 80.9 cm/s, phasicity: Monophasic Peroneal artery: 68.4 cm/s, phasicity: Monophasic Anterior tibial artery: 55.9 cm/s, phasicity: Monophasic Dorsalis pedis artery: 40.2 cm/s, phasicity:Monophasic LEFT LEG: Common femoral artery: 171 cm/s, phasicity: Monophasic Profunda femoris artery: 74.1 cm/s, phasicity: Monophasic Superficial femoral artery (proximal): 94.6 cm/s, phasicity: Monophasic Superficial femoral artery (mid): 107 cm/s, phasicity: Monophasic Superficial femoral artery (distal): 66.2 cm/s, phasicity: Monophasic Popliteal artery: 100 cm/s, phasicity: Monophasic Posterior tibial artery: 56.0 cm/s, phasicity: Monophasic Peroneal artery: 86.8 cm/s, phasicity: Monophasic Anterior tibial artery: 52.7 cm/s, phasicity: Monophasic Dorsalis pedis artery: 64.7 cm/s, phasicity: Monophasic ANKLE-BRACHIAL INDEX: Right: 0.85? Left: 0.86 ANKLE PRESSURES: Right: PT 82, DP 71 Left: PT?83, DP?76 ANKLE PVR WAVEFORMS: Right: Minimally dampened Left: Moderately dampened US/US arterial duplex LE BI IMPRESSION: Right leg: Mildly decreased ankle brachial index. Diffuse monophasic waveforms throughout the right lower extremity indicating a more proximal aortoiliac inflow disease. Patent flow throughout the femoral, popliteal and runoff vessels Left leg: Mildly decreased ankle brachial index. Diffuse monophasic waveforms throughout the right lower extremity indicating a more proximal aortoiliac inflow disease. Patent flow throughout the femoral, popliteal and runoff vessels DEANNE Reference: - >1.4 = calcified vessels - 0.9 - 1.4 = normal - no significant arterial disease - 0.7 - 0.89 = mild peripheral arterial disease - 0.51 - 0.69 = moderate peripheral arterial disease - ? 0.50 = severe peripheral arterial disease - < .30 = critical arterial disease
== END 2023-04-20 14:00 | disposition home or self-care (01) ==
LOC: HO.US 13:59
PROVIDERS: PCP Internal Medicine; Visit Provider Surgery
DX: I73.9 Peripheral vascular disease, unspecified (principal)
CPT/HCPCS: 93923; 93925

== ENCOUNTER → 2023-04-30 14:50 | Outpatient (REF) | payer OTHER, SELFPAY ==
--- NOTE | 2023-04-30 14:54 | CA_ITS ---
Transthoracic Echocardiogram Patient (Last, First, Middle): Glo Jacob, Gender: Female Date of : 1960 Age: 62 Procedure Date: 04/30/2023 Procedure Type: Transthoracic Echocardiogram Location: OP Height: 170.18 cm Weight: 77.11 kg BSA: 1.89 m2 Heart Rate: bpm BP: 100 / 48 mmHg Guest Experience Representative: TO Referring MD: Hector Paige MD Field Education Coordinator: Juan Schaefer MD Symptoms: I51.81 - Takotsubo syndrome Study Quality: Fair ECG Rhythm: Sinus Conclusions: - 1. Normal LV ejection fraction 55-60% with grade 1 diastolic dysfunction 2. Normal cardiac valvular Dopplers 3. Normal RV systolic pressure 4. Upper limits of normal ascending aortic size at 3.6 cm 5. No pericardial effusion Findings Procedure Information The patient declines contrast. Left Ventricle Normal left ventricular size, thickness, and systolic function. The visually estimated ejection fraction is between 55-60%. Spectral Doppler is indicative of an impaired relaxation filling pattern. E/E prime ratio is <8, consistent with normal filling pressures. Evidence suggests grade I (mild) diastolic dysfunction. Right Ventricle Normal right ventricular cavity size and systolic function. Atria Both atria are normal in size. Interatrial shunt cannot be excluded. Aortic Valve Normal aortic valve structure and function. There is no aortic valve stenosis. There is no aortic valve regurgitation. Mitral Valve Normal mitral valve structure and function. There is trace mitral valve regurgitation. There is no mitral valve stenosis. Pulmonic Valve The pulmonic valve is likely normal. Tricuspid Valve Normal tricuspid valve structure. There is mild tricuspid valve regurgitation. The right ventricular systolic pressure is normal. The right ventricular systolic pressure is 31 mmHg. Normal right atrial pressure. There is no evidence of pulmonary hypertension. Great Vessels The pulmonary artery was not well visualized. Venous The inferior vena cava is normal in size and collapses greater than 50% with inspiration. Pericardium/Pleural There is no evidence of pericardial effusion. Prior Study Comparison No prior study available for comparison. Measurements 2D Linear Measurements IVSd: 1.02 0.6-0.9/0.6-1.0 cm LVIDd: 4.86 3.9-5.3/4.2-5.9 cm LVIDd Index: 2.57 2.4-3.2/2.2-3.1 cm/m2 LVIDs: 3.17 2.0-3.6 cm LVPWd: 1.07 0.7-1.1 cm LA Diam: 3.60 2.7-3.8/3.0-4.0 cm LAIDs Index: 1.90 1.5-2.3 cm/m2 LV Mass: 229.75 67-162/88-224 g LV Mass Index: 121.56 43-95/49-115 g/m2 LVOT Diam: 2.30 3.0+(-)1.3 cm 2D Systolic Function EF 4C: 54.40 >55% EF 2C: 62.60 >55% EF BiP: 58.30 >55% Mitral Valve MV Pk E: 0.61 MV PK A: 0.69 MV Decel Time: 250.00 E/A: 0.90 E'Lateral: 10.10 E'Medial: 5.55 E/E' Med: 11.00 E/E' Lat: 6.00 PHT: 73.00 MVA PHT: 3.01 Decel Robeson: 2.43 Aortic Valve AoV Pk Luis Armando: 1.12 AoV Mn Luis Armando: 0.80 AoV VTI: 0.28 AoV Pk Grad: 5.00 Aov Mn Grad: 3.00 ELLIOTT Cont.VTI: 3.34 LVOT LVOT Pk Luis Armando: 0.88 LVOT Mn Luis Armando: 0.59 LVOT VTI: 0.23 LVOT Pk Grad: 3.00 LVOT Mn Grad: 2.00 LVOT Diam: 2.30 LVOT Area: 4.15 Diastolic Function MV Pk E: 0.61 MV Pk A: 0.69 E/A: 0.90 E'Medial: 5.55 E/E' Med: 11.00 E' Laterial: 10.10 E/E' Lat: 6.00 Right Ventricle TAPSE (mm): 18.00 TVS' Luis Armando: 9.25 Tricuspid Valve TR Pk Luis Armando: 2.64 TR Pk Grad: 28.00 RA Press: 3.00 RVSP: 31.00 Great Vessels Aorta Sinus of Valsalva: 3.19 2.0-3.5 cm Ao Asc: 3.60 2.1-3.4 cm Updated in Other Vendor System with Status of Final Juan Schaefer MD electronically signed on 05/01/2023 12:26:41 PM with status of Final
== END ==
LOC: HO.CARD 14:50
PROVIDERS: PCP Internal Medicine; Visit Provider Internal Medicine
DX: I51.81 Takotsubo syndrome (principal)
CPT/HCPCS: 93306

== ENCOUNTER → 2023-04-30 14:54 | Outpatient (BNV) | payer OTHER, SELFPAY | PROVIDERS: PCP Internal Medicine; Visit Provider Internal Medicine Cardiovascular Disease | DX: I36.1 Nonrheumatic tricuspid (valve) insufficiency (principal); I51.81 Takotsubo syndrome | CPT/HCPCS: 93306 ==

== ENCOUNTER 2023-07-08 13:14 | Outpatient (AMB) | payer OTHER, SELFPAY ==
[2023-07-08 13:19] VITALS: BP 92/60; PULSE 77; O2SAT 92
--- NOTE | 2023-07-08 13:19 | A.OFFPC_ITS ---
Vital Signs 07/08/23 13:19 BMI Reason not done Patient refused/unable BP 92/60 Blood Pressure Location Lt brachial Position Sitting Pulse 77 Pulse Source Pulse Oximeter Pulse Oximetry (%) 92 Oxygen Delivery Method Room Air Intake Visit Reasons: 3mth f/u Intake Note: Patient is here to follow up on 3 months Reuse Technician Required: No Allergies cephalexin [Keflex] Allergy (Unknown, Verified 11/03/23 15:10) Unknown ciprofloxacin Allergy (Unknown, Verified 11/03/23 15:10) Unknown codeine Allergy (Unknown, Verified 11/03/23 15:10) codeine phosphate- unknown doxycycline Allergy (Unknown, Verified 11/03/23 15:10) pruritic rash duloxetine [Cymbalta] Allergy (Unknown, Verified 11/03/23 15:10) swelling of throat and tongue levofloxacin Allergy (Unknown, Verified 11/03/23 15:10) Unknown NSAIDS (Non-Steroidal Anti-Inflamma Allergy (Unknown, Verified 11/03/23 15:10) Unknown penicillin V Allergy (Unknown, Verified 11/03/23 15:10) Unknown prednisone Allergy (Unknown, Verified 11/03/23 15:10) Unknown Sulfa (Sulfonamide Antibiotics) Allergy (Unknown, Verified 11/03/23 15:10) Unknown theophylline Allergy (Unknown, Verified 11/03/23 15:10) Unknown clarithromycin Adverse Reaction (Unknown, Verified 11/03/23 15:10) Unknown insect sting Allergy (Unknown, Uncoded 11/03/23 15:10) anaphylaxis Medication List - Last Reconciled 07/08/23 by Hector Paige MD [6 inch sitting cushion pad (for wheelchair) As directed] adhesive bandage (Bandages) multiple different sizes adhesive tape As directed aspirin 81 mg PO DAILY 90 days [BODY HEATING PAD As directed] carisoprodol 350 mg PO QID PRN 28 days cetirizine 10 mg PO DAILY chair, wheel (Wheel chair) As directed cholecalciferol (vitamin D3) 50 mcg PO DAILY citalopram 20 mg PO DAILY clonazepam 1 mg PO BID PRN collagenase clostridium histo. (Santyl) 1 appl topical DAILY cyanocobalamin (vitamin B-12) 1,000 mcg PO DAILY diphenhydramine HCl 25 mg PO TID PRN [Disposable bed pads 6 per day As directed] elastic bandage (Medigrip Tubular bandage) As directed epinephrine (EpiPen 2-Jonathon) 0.3 mg (0.3 mL) IM ONCE famotidine 20 mg PO BID folic acid 1 mg PO DAILY furosemide 20 mg PO BID PRN gabapentin 600 mg (2 x 300 mg) PO TID 30 days gauze bandage (Band-Aid Gauze Pads) As directed ipratropium-albuterol 0.5 mg-3 mg(2.5 mg base)/3 mL 3 mL inhalation QID [LIGHTWEIGHT CANE As directed] [LIGHTWEIGHT WHEELCHAIR As directed] lisinopril 20 mg PO DAILY 90 days metoprolol succinate ER 100 mg PO DAILY miscellaneous medical supply 1 ea miscellaneous DAILY miscellaneous medical supply 1 ea miscellaneous .3-5 times daily miscellaneous medical supply 1 ea miscellaneous .5-6 times Daily miscellaneous medical supply 1 ea miscellaneous .4-5 times morphine 15 mg PO QID PRN 28 days morphine ER 60 mg PO Q8H 28 days mupirocin 2% 1 appl topical TID 14 days [NASAL CANNULA for OXYGEN As directed] [NEBULIZER and all related supplies As directed] pyridoxine (vitamin B6) 50 mg PO DAILY 90 days [ROLLATOR As directed] silver sulfadiazine 1% (Silvadene) 1 appl topical BID silver-hydrocolloid dressing 1.2-3.5 X 14 %- (Aquacel-AG) apply to wounds on lower extremities TID topically; tiotropium bromide 2.5 mcg/actuation (Spiriva Respimat) 2 puffs inhalation QAM 30 days Ventolin HFA 90 mcg/actuation (albuterol sulfate) 2 puffs inhalation Q4H PRN NS Tobacco use date assessed: 07/08/23 Dental Screening Dental Screen Date: 04/06/23 HPI 3mth f/u HPI Details Patient comes in today for her follow up visit She is still following up with the wound clinic for her right lower leg wound, which has not yet healed up completely Patient's states that he was given a paper to bring with him today with information on what is needed from his PCP as patient is suspected of having some vascular issues that is impairing her healing but he could not find it earlier today and did not bring it in - states that he will try to look for it when he gets home and send over the information [facility] Patient is also requesting for a new physical therapy order for [facility] to resume her PT for her left ankle and left lower leg fracture from last year States that she feels okay otherwise She denies any headaches or dizziness Denies any chest pains; still has recurrent OCHOA but denies any increased SOB than before No nausea/vomiting, no abdominal pain No change in bowel habits noted States that her chronic neck, lower back and joint pains remain bearable on her current meds She needs a couple of her Rx refilled today [facility] Medical History Allergic rhinitis Vitamin D deficiency Functional urinary incontinence Takotsubo cardiomyopathy Coronary atherosclerosis Acute kidney injury Acute respiratory failure with hypoxia and hypercapnia Acute systolic CHF (congestive heart failure) Metabolic encephalopathy Obesity (BMI 30-39.9) Smoking Depression Anxiety Insomnia Vitamin B12 deficiency Impaired fasting glucose GERD without esophagitis Pure hypercholesterolemia Fibromyalgia Lumbar degenerative disc disease Asthma Surgical History No pertinent past surgical history Family History Father Medical history unknown Mother Diabetes Hypertension CVD (cardiovascular disease) Stroke Other Mental health problem Social History Housing: House Alcohol intake: never Patient Tobacco Use Status: Current everyday Tobacco user Tobacco use type: Cigarette Cigarettes Per Day: 5 e-Cigarette/Vaping Use: Never Used Second Hand Smoke Exposure: Yes service: No Current occupational status: disabled Cognitive needs: No Hearing needs: No Vision needs: Yes Questionnaire PHQ-9 Over the last 2 weeks, how often have you been bothered by any of the following problems? 1. Little interest or pleasure in doing things: nearly every day 2. Feeling down, depressed, or hopeless: nearly every day 3. Trouble falling or staying asleep, or sleeping too much: nearly every day 4. Feeling tired or having little energy: nearly every day 5. Poor appetite or overeating: several days 6. Feeling bad about yourself - or that you are a failure or have let yourself or your family down: not at all 7. Trouble concentrating on things, such as reading the newspaper or watching television: several days 8. Moving or speaking so slowly that other people could have noticed. Or the opposite - being so fidgety or restless that you have been moving around a lot more than usual: not at all 9. Thoughts that you would be better off or of hurting yourself in some way: not at all Total score: 14 Depression Screening Interpretation: Positive Depression Screening Follow-up: Existing condition and In treatment Depression Screening Done: Yes 91151 - PHQ-9 Billing: Yes Source: Developed by Drs. Jose Chan, Shana Castro, Edison Lang and colleagues, with an educational shruthi from [employer]. Thrive Questionnaire Date Thrive assessed: 07/08/23 I am a: Patient What is your living situation today?: I have a steady place to live Within the past 12 months, did the food you bought not last and you didn't have the money to get more?: Never true Within the past 12 months, did you worry whether your food would run out before you got money to buy more?: Never true Do you have trouble paying for medicines?: No Do you have trouble getting transportation to medical appointments?: No Do you have trouble paying your heating and electricity bill?: No Do you have trouble taking care of your child, family member or friend?: No Do you have trouble with day-to-day activities such as bathing, preparing meals, shopping, managing finances, etc.?: No Are you currently unemployed and looking for a job?: No Are you interested in more education?: No Please select the resources that you would like help with: None Currently or been in a relationship where the following occur: no concerns reported THRIVE Score: 0 AUDIT C Alcohol Use Questionnaire (AUDIT-C) 1. How often do you have a drink containing alcohol?: Never 3. How often do you have six or more drinks on one occasion?: Never Total Score: 0 Score Reviewed/Action Taken: Yes NIKOS-7 AMB Questionnaire NIKOS-7 Date NIKOS - 7 assessed: 04/06/23 Source: Developed by Drs. Jose Chan, Shana Castro, Edison Lang and colleagues, with an educational shruthi from [employer]. Review of Systems Const Denies chills, Reports fatigue, Denies fever(s) and Denies headache(s) ENT Denies dysphagia, Denies dizziness, Denies otalgia, Denies headache(s), Reports neck pain (chronic), Denies odynophagia and Denies sore throat Card Denies chest pain, Denies palpitations and Reports dyspnea on exertion (mild) Resp Denies chest congestion, Reports cough (coughs up some thick whitish phlegm at times), Reports dyspnea on exertion (mild) and Denies wheezing GI Denies abdominal pain, Denies constipation, Denies dysphagia, Denies heartburn, Denies diarrhea, Denies nausea, Denies odynophagia and Denies vomiting Denies nocturia, Denies dysuria, Reports urinary incontinence (at times) and Denies urinary urgency Musc Reports back pain (over the lumbar spine - chronic), Reports arthralgias (over the left knee and left ankle) and Reports neck pain (chronic) Skin/Breast Details: (+) wounds on the right lower leg, which is currently bandaged Denies rash Neuro Denies dizziness and Denies headache(s) Endo Reports fatigue and Denies palpitations Aller/Immun Denies wheezing Physical exam (Primary Care) Vital Signs: Last Vital Signs Pulse 77 07/08/23 13:19 BP 92/60 07/08/23 13:19 Pulse Ox 92 07/08/23 13:19 Oxygen Delivery Method Room Air 07/08/23 13:19 Tobacco/Smoking Status: Tobacco use Status Tobacco use date assessed 07/08/23 07/08/23 13:22 Patient Tobacco Use Status Current everyday Tobacco 07/08/23 13:22 Tobacco use type Cigarette 07/08/23 13:22 e-Cigarette/Vaping Use Never Used 07/08/23 13:22 PHQ-9: PHQ-9 Score PHQ-9: Total score 14 07/08/23 14:13 Depression Screening Interpretation: Positive Depression Screening Follow-up: Existing condition and In treatment Thrive Assessment: Date of Thrive Assessment Date Thrive assessed 04/06/23 07/08/23 13:22 Currently or been in a relationship where the following occur: no concerns reported Const General: no acute distress and alert Limitations: wheelchair HENMT Ears: TM's normal bilaterally and EAC's normal Throat: Yes posterior oropharynx normal and Yes tonsils normal (no TP congestion) Neck Neck: Yes no lymphadenopathy and Yes supple Thyroid: Thyroid normal Resp Auscultation: no crackles, no rales, rhonchi (occasional), no wheezes and diminished lung sounds (slightly) bilateral Cardio Rate: regular rate Rhythm: regular rhythm Heart sounds: no murmurs GI Palpation (GI): Soft to palpation and nontender Auscultation: normal bowel sounds General: Yes no CVA tenderness Back/Spine/Pelvis Back: no CVA tenderness Cervical Spine: Cervical spine tenderness Thoracic/Lumbar Spine: lumbar spinal tenderness Skin Other: the right lower leg is presently covered up in bandages so unable to examine leg today - she is being followed up regularly by the Wound Clinic Rashes: no rashes Extrem Other: patient's right lower leg is presently covered up in bandages so unable to examine leg today - she is being followed up regularly by [facility] for wound care services General: Yes no clubbing, cyanosis or edema Assessment and Plan Assessment & Plan (1) Wound of right lower extremity: Code(s): S81.801A - Unspecified open wound, right lower leg, initial encounter Qualifiers: Encounter type: sequela Qualified Code(s): S81.801S - Unspecified open wound, right lower leg, sequela Plan: Follow up with the wound clinic as scheduled Patient first sustained this injury when she accidentally cut herself on the edge of a hotel bed back in October 2022 Her right lower leg wound was initially sutured in the ER but failed to close by primary healing; sutures were removed a couple of weeks later and has persisted since (2) Coronary atherosclerosis: Comment: Cardiac cath done in 2017 showed moderate ostial left main disease at 40-50% angiographically, moderate mid RCA disease at 60%, mild LCX disease, normal LVEDP; moderate left main and RCA disease seem unrelated to the presentation as V gram suggests mid-cavitary Takotsubo's cardiomyopathy Recommend conservative medical treatment for CAD with aspirin, statins and risk factor modification Code(s): I25.10 - Atherosclerotic heart disease of [place] coronary artery without angina pectoris Qualifiers: Associated angina: unspecified whether angina present Coronary Disease- Associated Artery/Lesion type: [place] artery [place] vs. transplanted heart: [place] heart Qualified Code(s): I25.10 - Atherosclerotic heart disease of [place] coronary artery without angina pectoris Plan: Continue Aspirin 81 mg QD and Metoprolol ER 100 mg QD She was started on Atorvastatin 20 mg QD by Cardiology several months ago but s he could not tolerate the medication due to side effects (myalgia) and she stopped taking a few weeks later Follow-up with cardiology at [facility] as scheduled (3) Takotsubo cardiomyopathy: Comment: Echocardiogram done showed reduced ejection fraction of 25-35% with regional wall motion abnormalities Code(s): I51.81 - Takotsubo syndrome Plan: Appears compensated based on her current symptoms; symptoms have improved with IV diuresis in the past Reinforced fluid restriction Continue Furosemide 20 mg BID, Lisinopril 20 mg QD and Metoprolol ER 100 mg QD Repeat echocardiogram done in April 2023 revealed normal LV ejection fraction 55-60% with grade 1 diastolic dysfunction. Cardiac valvular dopplers are normal and RV systolic pressure is normal. The size of the ascending aorta is at the upper limits or normal at 3.6 cm . There is no pericardial effusionnoted Follow up with cardiology as scheduled (4) Pure hypercholesterolemia: Code(s): E78.00 - Pure hypercholesterolemia, unspecified Plan: Reinforced low cholesterol diet She stopped taking Atorvastatin 20 mg QD a few months due to side effects (myalgia) Will have her recheck her labs and fasting lipids CATARINA for follow-up (5) Asthma: Code(s): J45.909 - Unspecified asthma, uncomplicated Qualifiers: Asthma complication type: unspecified Asthma persistence: persistent Asthma severity: moderate Qualified Code(s): J45.40 - Moderate persistent asthma, uncomplicated Plan: Patient states that her asthma has been better controlled lately Continue Spiriva Respimat 2.5 mcg 2 puffs once a day, Ventolin HFA 2 puffs 4 times a day as needed and Montelukast 10 mg QD Continue nebulization Tx with Duoneb up to 4 times a day as needed (6) Lumbar degenerative disc disease: Code(s): M51.36 - Other intervertebral disc degeneration, lumbar region Plan: Reinforced activity and weight-lifting restrictions Continue Morphine ER 60 mg q 8 hours PRN, Morphine IR 15 mg QID PRN and Carisoprodol 350 mg QID PRN (7) Fibromyalgia: Code(s): M79.7 - Fibromyalgia Plan: Reinforced regular exercise (as tolerated) and increased physical activity to help manage her fibromyalgia symptoms better although patient's activity tolerance is very limited so this is probably not realistic and not to be expected Her recent right ankle fracture also makes physical activities even more challenging for her Continue Gabapentin 600 mg capsules TID (8) Pain of left lower extremity: Code(s): M79.605 - Pain in left leg Plan: Will send her for x-rays of the left leg and left ankle for further evaluation (9) GERD without esophagitis: Code(s): K21.9 - Gastro-esophageal reflux disease without esophagitis Plan: Dietary restrictions reinforced Continue Famotidine 20 mg BID PRN (10) Impaired fasting glucose: Code(s): R73.01 - Impaired fasting glucose Plan: Reinforced low calorie diet/exercise as tolerated Her HgbA1c was normal at 5.3% when last checked in 2019, and her FBS have been normal when checked over the past couple of years (11) Allergic rhinitis: Code(s): J30.9 - Allergic rhinitis, unspecified Qualifiers: Allergic rhinitis seasonality: unspecified Allergic rhinitis trigger: unspecified Qualified Code(s): J30.9 - Allergic rhinitis, unspecified Plan: Continue Cetirizine 10 mg QD PRN (12) Vitamin D deficiency: Code(s): E55.9 - Vitamin D deficiency, unspecified Plan: Continue Vitamin D3 2000 units QD (13) Vitamin B12 deficiency: Code(s): E53.8 - Deficiency of other specified B group vitamins Plan: Continue Vitamin B12 tablets 1000 mcg QD (14) Insomnia: Code(s): G47.00 - Insomnia, unspecified Qualifiers: Insomnia type: unspecified Qualified Code(s): G47.00 - Insomnia, unspecified Plan: Sleep hygiene reinforced - states that Clonazepam helps with her sleep at night (15) Anxiety: Code(s): F41.9 - Anxiety disorder, unspecified Plan: Continue Clonazepam 1 mg BID PRN (16) Depression: Code(s): F32.9 - Major depressive disorder, single episode, unspecified Qualifiers: Depression Type: unspecified Qualified Code(s): F32.9 - Major depressive disorder, single episode, unspecified Plan: Continue Citalopram 20 mg QD Follow up with psychiatry as scheduled (17) Smoking: Code(s): F17.200 - Nicotine dependence, unspecified, uncomplicated Plan: Counseled again on smoking cessation (18) Obesity (BMI 30-39.9): Code(s): E66.9 - Obesity, unspecified Plan: Reinforced diet; exercise and weight loss are unrealistic given patient's physical issues and comorbidities Plan Follow up in 3 months Orders: Orders TSH reflex Free T4 3 Months E78.00 - Pure hypercholesterolemia, unspecified UA CC w/rflx Micro + Cult 3 Months R30.0 - Dysuria Vitamin D 25-OH Total 3 Months E55.9 - Vitamin D deficiency, unspecified Vitamin B12 and Folate 3 Months E53.8 - Deficiency of other specified B group vitamins XR ankle LT min 3V 07/08/23 S82.892S - Other fracture of left lower leg, sequela, S82.832S - Other fracture of upper and lower end of left fibula, sequela PT Evaluation and Treatment 07/08/23 S82.892S - Other fracture of left lower leg, sequela, S82.832S - Other fracture of upper and lower end of left fibula, sequela Complete Blood Count Auto Diff 3 Months D64.9 - Anemia, unspecified Comprehensive [facility]. Panel Fast 3 Months E78.00 - Pure hypercholesterolemia, unspecified Lipid Panel 3 Months E78.00 - Pure hypercholesterolemia, unspecified Hemoglobin A1c 3 Months R73.01 - Impaired fasting glucose XR tibia fibula LT 2V 07/08/23 S82.892S - Other fracture of left lower leg, sequela, S82.832S - Other fracture of upper and lower end of left fibula, sequela Medications: Refilled morphine 15 mg PO QID PRN 112 tabs 0RF pain 28 days M51.36 - Other intervertebral disc degeneration, lumbar region furosemide 20 mg PO BID PRN 180 tabs 1RF for edema Coding Level of Care Code Est Pt Level 4 (04675) Complex EM visit Add On G2211 Diagnoses Wound of right lower extremity, sequela S81.801S Encounter type: sequela Atherosclerosis of [place] coronary artery of [place] heart, unspecified whether angina present I25.10 Associated angina: unspecified whether angina present Coronary Disease-Associated Artery/Lesion type: [place] artery [place] vs. transplanted heart: [place] heart Takotsubo cardiomyopathy I51.81 Pure hypercholesterolemia E78.00 Moderate persistent asthma, unspecified whether complicated J45.40 Asthma complication type: unspecified Asthma persistence: persistent Asthma severity: moderate Lumbar degenerative disc disease M51.36 Fibromyalgia M79.7 Pain of left lower extremity M79.605 GERD without esophagitis K21.9 Impaired fasting glucose R73.01 Allergic rhinitis, unspecified seasonality, unspecified trigger J30.9 Allergic rhinitis seasonality: unspecified Allergic rhinitis trigger: unspecified Vitamin D deficiency E55.9 Vitamin B12 deficiency E53.8 Insomnia, unspecified type G47.00 Insomnia type: unspecified Anxiety F41.9 Depression, unspecified depression type F32.9 Depression Type: unspecified Smoking F17.200 Obesity (BMI 30-39.9) E66.9
== END 2023-07-08 14:24 | disposition home or self-care (01) ==
PROVIDERS: PCP Internal Medicine; Visit Provider Internal Medicine
DX: S81.801D Unspecified open wound, right lower leg, subsequent encounter (principal); I25.10 Atherosclerotic heart disease of native coronary artery without angina pectoris; I51.81 Takotsubo syndrome; E78.00 Pure hypercholesterolemia, unspecified; J45.40 Moderate persistent asthma, uncomplicated; M51.36 Other intervertebral disc degeneration, lumbar region; M79.7 Fibromyalgia; M79.605 Pain in left leg; K21.9 Gastro-esophageal reflux disease without esophagitis; R73.01 Impaired fasting glucose; J30.9 Allergic rhinitis, unspecified; E55.9 Vitamin D deficiency, unspecified; E53.8 Deficiency of other specified B group vitamins; G47.00 Insomnia, unspecified; F41.9 Anxiety disorder, unspecified; F17.200 Nicotine dependence, unspecified, uncomplicated
CPT/HCPCS: 99214; G2211

== ENCOUNTER 2023-08-25 15:11 | Outpatient (AMB) | payer OTHER, SELFPAY ==
--- NOTE | 2023-08-25 15:13 | A.OFFVIS_ITS ---
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 States she has had history of circulation issues ( ie Raynauds) and even as a child had slow to h eal wounds. Wound Care sees pt 1 x per week and has VNA do dressing changes. Accompanied by: Family/Other Allergies cephalexin [Keflex] Allergy (Unknown, Verified 08/25/23 15:23) Unknown ciprofloxacin Allergy (Unknown, Verified 08/25/23 15:23) Unknown codeine Allergy (Unknown, Verified 08/25/23 15:23) codeine phosphate- unknown doxycycline Allergy (Unknown, Verified 08/25/23 15:23) pruritic rash duloxetine [Cymbalta] Allergy (Unknown, Verified 08/25/23 15:23) swelling of throat and tongue levofloxacin Allergy (Unknown, Verified 08/25/23 15:23) Unknown NSAIDS (Non-Steroidal Anti-Inflamma Allergy (Unknown, Verified 08/25/23 15:23) Unknown penicillin V Allergy (Unknown, Verified 08/25/23 15:23) Unknown prednisone Allergy (Unknown, Verified 08/25/23 15:23) Unknown Sulfa (Sulfonamide Antibiotics) Allergy (Unknown, Verified 08/25/23 15:23) Unknown theophylline Allergy (Unknown, Verified 08/25/23 15:23) Unknown clarithromycin Adverse Reaction (Unknown, Verified 08/25/23 15:23) Unknown insect sting Allergy (Unknown, Uncoded 08/25/23 15:23) anaphylaxis HPI HPI 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 She has been followed by the [facility]. This all began back in October of 2022 when she accidentally cut herself in a hotel bed. She required sutures but eventually the wound opened up. It has been nonhealing since that time. She has been followed up by the [facility] which she has significantly improved with. She has even had a skin substitute placement. It appears to be healing fairly well. She now presents to us for vascular evaluation. Of note she smokes about a half pack per day [facility] Medical History Allergic rhinitis Vitamin D deficiency Functional urinary incontinence Takotsubo cardiomyopathy Coronary atherosclerosis Acute kidney injury Acute respiratory failure with hypoxia and hypercapnia Acute systolic CHF (congestive heart failure) Metabolic encephalopathy Obesity (BMI 30-39.9) Smoking Depression Anxiety Insomnia Vitamin B12 deficiency Impaired fasting glucose GERD without esophagitis Pure hypercholesterolemia Fibromyalgia Lumbar degenerative disc disease Asthma Surgical History No pertinent past surgical history Family History Father Medical history unknown Mother Diabetes Hypertension CVD (cardiovascular disease) Stroke Other Mental health problem Social History Housing: House Alcohol intake: never Patient Tobacco Use Status: Current everyday Tobacco user Tobacco use type: Cigarette Cigarettes Per Day: 5 e-Cigarette/Vaping Use: Never Used Second Hand Smoke Exposure: Yes service: No Current occupational status: disabled Cognitive needs: No Hearing needs: No Vision needs: Yes Review of Systems Const All systems reviewed & are unremarkable except as noted in HPI and below Reports no additional complaints ENT Reports Normal hearing present Card Denies chest pain, Denies chest pain at rest, Denies chest pain with activity and Denies pedal edema Resp Denies cough GI Denies abdominal pain Musc Denies abnormal gait, Denies muscle cramps and Denies radiating pain into limb Skin/Breast Denies skin ulcer and Denies wounds Neuro Reports Normal hearing present and Denies abnormal gait Psych Reports no additional complaints Physical Exam Const General: cooperative, healthy appearing and comfortable Orientation/consciousness: oriented to person, oriented to place and oriented to time HEENT Head: Yes normal to inspection Neck Neck: Yes normal visual inspection Carotids: no bruits Chest Chest palpation & inspection: normal inspection of the chest Resp Effort & Inspection: normal respiratory effort and able to speak in complete sentences Auscultation: clear to auscultation bilaterally, no crackles, no rales, no rhonchi and no wheezes Cardio Other: Bilateral DP signals Rate: regular rate Rhythm: regular rhythm Heart sounds: S1 normal heart sound present and S2 normal heart sound present Bruits: no carotid bruits GI Inspection: Yes normal to inspection Skin Other: Right calf ulcer Wounds: no wounds Hair: normal Neuro General: oriented to person, oriented to place and oriented to time Cranial nerves: Yes CN's II-XII intact bilaterally and Yes Normal hearing present Cognition (Neuro): normal cognition Motor exam (neuro): 5/5 motor strength present throughout Extrem Other: venous exam: No significant superficial varicosities or spider telangiectasias, minimal edema General: No clubbing, No cyanosis and No edema Psych Appearance: grossly normal Mental Status: mental status grossly normal Speech and movement: Normal speech and movement present Results Reviewed Results Reviewed: Noninvasive testing dated 04/20/2023 demonstrates bilateral monophasic waveforms all the way down. Assessment & Plan Assessment & Plan (1) PAD (peripheral artery disease): Code(s): I73.9 - Peripheral vascular disease, unspecified Category: Medical Plan: In short patient has an element of peripheral vascular disease. I do believe she has inflow disease. That being said at the current time her wounds appear to be healing. She has not as interested in aggressive intervention at the current time. We will manage this conservatively and we will have her follow-up in approximately 6 months time with noninvasive arterial testing. Should the wound worsen in the interim would be happy to intervene. We did discuss this in detail with the family and they were in agreement. She is scheduled for 6 month surveillance ultrasound with us. Thank you for allowing us to assist in her care. Orders: Orders US arterial duplex LE BI 6 Months I73.9 - Peripheral vascular disease, unspecified Coding Level of Care Code Est Pt Level 4 (19921) Diagnoses PAD (peripheral artery disease) I73.9
== END 2023-08-25 15:44 | disposition home or self-care (01) ==
PROVIDERS: PCP Internal Medicine; Visit Provider Surgery Vascular Surgery
DX: I73.9 Peripheral vascular disease, unspecified (principal)
CPT/HCPCS: 99213

== ENCOUNTER → 2023-08-25 15:11 | Outpatient (BNVA) | payer OTHER, SELFPAY | PROVIDERS: PCP Internal Medicine; Visit Provider Surgery Vascular Surgery | DX: I73.9 Peripheral vascular disease, unspecified (principal) | CPT/HCPCS: 99212 ==

== ENCOUNTER 2023-11-03 14:43 | Outpatient (AMB) | payer OTHER, SELFPAY ==
[2023-11-03 14:44] VITALS: BP 118/68; PULSE 85; O2SAT 96
--- NOTE | 2023-11-03 14:44 | A.OFFPC_ITS ---
Vital Signs 11/03/23 14:44 BMI Reason not done Patient refused/unable BP 118/68 Blood Pressure Location Lt brachial Position Sitting Pulse 85 Pulse Source Pulse Oximeter Pulse Oximetry (%) 96 Oxygen Delivery Method Room Air Intake Visit Reasons: 3 Month F/U Refuse Laborer Required: No Accompanied by: Self / Same As Patient Allergies cephalexin [Keflex] Allergy (Unknown, Verified 11/03/23 15:10) Unknown ciprofloxacin Allergy (Unknown, Verified 11/03/23 15:10) Unknown codeine Allergy (Unknown, Verified 11/03/23 15:10) codeine phosphate- unknown doxycycline Allergy (Unknown, Verified 11/03/23 15:10) pruritic rash duloxetine [Cymbalta] Allergy (Unknown, Verified 11/03/23 15:10) swelling of throat and tongue levofloxacin Allergy (Unknown, Verified 11/03/23 15:10) Unknown NSAIDS (Non-Steroidal Anti-Inflamma Allergy (Unknown, Verified 11/03/23 15:10) Unknown penicillin V Allergy (Unknown, Verified 11/03/23 15:10) Unknown prednisone Allergy (Unknown, Verified 11/03/23 15:10) Unknown Sulfa (Sulfonamide Antibiotics) Allergy (Unknown, Verified 11/03/23 15:10) Unknown theophylline Allergy (Unknown, Verified 11/03/23 15:10) Unknown clarithromycin Adverse Reaction (Unknown, Verified 11/03/23 15:10) Unknown insect sting Allergy (Unknown, Uncoded 11/03/23 15:10) anaphylaxis Medication List - Last Reconciled 11/03/23 by Hector Paige MD [6 inch sitting cushion pad (for wheelchair) As directed] adhesive bandage (Bandages) multiple different sizes adhesive tape As directed aspirin 81 mg PO DAILY 90 days [BODY HEATING PAD As directed] carisoprodol 350 mg PO QID PRN 14 days cetirizine 10 mg PO DAILY chair, wheel (Wheel chair) As directed cholecalciferol (vitamin D3) 50 mcg PO DAILY citalopram 20 mg PO DAILY clonazepam 1 mg PO BID PRN collagenase clostridium histo. (Santyl) 1 appl topical DAILY cyanocobalamin (vitamin B-12) 1,000 mcg PO DAILY diphenhydramine HCl 25 mg PO TID PRN [Disposable bed pads 6 per day As directed] elastic bandage (Medigrip Tubular bandage) As directed epinephrine (EpiPen 2-Jonathon) 0.3 mg (0.3 mL) IM ONCE famotidine 20 mg PO BID folic acid 1 mg PO DAILY furosemide 20 mg PO BID PRN gabapentin 600 mg (2 x 300 mg) PO TID 30 days gauze bandage (Band-Aid Gauze Pads) As directed ipratropium-albuterol 0.5 mg-3 mg(2.5 mg base)/3 mL 3 mL inhalation QID [LIGHTWEIGHT CANE As directed] [LIGHTWEIGHT WHEELCHAIR As directed] lisinopril 20 mg PO DAILY 90 days metoprolol succinate ER 100 mg PO DAILY miscellaneous medical supply 1 ea miscellaneous DAILY miscellaneous medical supply 1 ea miscellaneous .3-5 times daily miscellaneous medical supply 1 ea miscellaneous .5-6 times Daily miscellaneous medical supply 1 ea miscellaneous .4-5 times morphine 15 mg PO QID PRN 28 days morphine ER 60 mg PO Q8H 28 days mupirocin 2% 1 appl topical TID 14 days naloxone 4 mg/actuation (Narcan) 4 mg intranasal Q2M PRN [NASAL CANNULA for OXYGEN As directed] [NEBULIZER and all related supplies As directed] pyridoxine (vitamin B6) 50 mg PO DAILY 90 days [ROLLATOR As directed] silver sulfadiazine 1% (Silvadene) 1 appl topical BID silver-hydrocolloid dressing 1.2-3.5 X 14 %- (Aquacel-AG) apply to wounds on lower extremities TID topically; tiotropium bromide 2.5 mcg/actuation (Spiriva Respimat) 2 puffs inhalation QAM 30 days Ventolin HFA 90 mcg/actuation (albuterol sulfate) 2 puffs inhalation Q4H PRN NS Tobacco use date assessed: 11/03/23 Dental Screening Dental Screen Date: 11/03/23 Did you have a dental visit in the last 12 months?: No Did you have a dental problem in the last 6 months where you did not have access to dental care?: No Was dental information given to patient?: No HPI 3 Month F/U HPI Details Patient comes in today for her follow up visit States that she still has an open wound on her right lower leg which has not yet healed up completely She was seen by vascular surgery for this a couple of months ago and she was suspected of having inflow disease but patient was reportedly not interested in aggressive interventions at the time and opted to continue conservative management She has been advised that if she still does not experience any significant improvement of her symptoms in 6 months' time, then she should explore further interventional Tx options She is also currently going to physical therapy at [facility] for her residual left ankle and left lower leg symptoms arising from her fracture and injury last year but is looking into possibly getting the physical therapy at home as she has been having trouble with transportation States that for unclear reasons, her insurance ([employer]) thinks that she has been receiving PT at home and they need to have someone inform her insurance that is not the case As she is currently receiving wound care services at home from [facility], have advised her that if her insurance will sign off on this, she can also get home PT through [facility] She denies any headaches or dizziness Denies any exertional chest pains; she still has some OCHOA but this has not gotten any worse than before No nausea/vomiting, no abdominal pain No change in bowel habits noted States that her current Rx help keep her chronic pains manageable Needs her Morphine 15 mg and Carisoprodol Rx refilled - these are due for refill tomorrow She has not been able to get her folllow up labs done yet REPLACED BY [facility] Medical History Allergic rhinitis Vitamin D deficiency Functional urinary incontinence Takotsubo cardiomyopathy Coronary atherosclerosis Acute kidney injury Acute respiratory failure with hypoxia and hypercapnia Acute systolic CHF (congestive heart failure) Metabolic encephalopathy Obesity (BMI 30-39.9) Smoking Depression Anxiety Insomnia Vitamin B12 deficiency Impaired fasting glucose GERD without esophagitis Pure hypercholesterolemia Fibromyalgia Lumbar degenerative disc disease Asthma Surgical History No pertinent past surgical history Family History Father Medical history unknown Mother Diabetes Hypertension CVD (cardiovascular disease) Stroke Other Mental health problem Social History Housing: House Alcohol intake: never Patient Tobacco Use Status: Current everyday Tobacco user Tobacco use type: Cigarette Cigarettes Per Day: 5 e-Cigarette/Vaping Use: Never Used Second Hand Smoke Exposure: Yes service: No Current occupational status: disabled Cognitive needs: No Hearing needs: No Vision needs: Yes Questionnaire PHQ-9 Over the last 2 weeks, how often have you been bothered by any of the following problems? 1. Little interest or pleasure in doing things: nearly every day 2. Feeling down, depressed, or hopeless: nearly every day 3. Trouble falling or staying asleep, or sleeping too much: nearly every day 4. Feeling tired or having little energy: nearly every day 5. Poor appetite or overeating: several days 6. Feeling bad about yourself - or that you are a failure or have let yourself or your family down: not at all 7. Trouble concentrating on things, such as reading the newspaper or watching television: several days 8. Moving or speaking so slowly that other people could have noticed. Or the opposite - being so fidgety or restless that you have been moving around a lot more than usual: not at all 9. Thoughts that you would be better off or of hurting yourself in some way: not at all Total score: 14 Depression Screening Interpretation: Positive Depression Screening Follow-up: Existing condition and In treatment Depression Screening Done: Yes 41488 - PHQ-9 Billing: Yes Source: Developed by Drs. Jose Chan, Shana Castro, Edison Lang and colleagues, with an educational shruthi from [employer]. Thrive Questionnaire Date Thrive assessed: 11/03/23 I am a: Patient What is your living situation today?: I have a steady place to live Within the past 12 months, did the food you bought not last and you didn't have the money to get more?: Never true Within the past 12 months, did you worry whether your food would run out before you got money to buy more?: Never true Do you have trouble paying for medicines?: No Do you have trouble getting transportation to medical appointments?: No Do you have trouble paying your heating and electricity bill?: No Do you have trouble taking care of your child, family member or friend?: No Do you have trouble with day-to-day activities such as bathing, preparing meals, shopping, managing finances, etc.?: No Are you currently unemployed and looking for a job?: No Are you interested in more education?: No Please select the resources that you would like help with: None Currently or been in a relationship where the following occur: No concerns reported THRIVE Score: 0 AUDIT C Alcohol Use Questionnaire (AUDIT-C) 1. How often do you have a drink containing alcohol?: Never 3. How often do you have six or more drinks on one occasion?: Never Total Score: 0 Score Reviewed/Action Taken: Yes NIKOS-7 AMB Questionnaire NIKOS-7 Date NIKOS - 7 assessed: 11/03/23 Feeling nervous, anxious, or on edge: 0 = Not at all Not being able to stop or control worryin = Not at all Worrying too much about different things: 0 = Not at all Trouble relaxin = Not at all Being so restless that it is hard to sit still: 0 = Not at all Becoming easily annoyed or irritable: 0 = Not at all Feeling afraid as if something awful might happen: 0 = Not at all Total NIKOS-7 score (0-4 normal; 5-9 mild; 10-14 moderate; 15-21 severe): 0 Source: Developed by Drs. Jose Chan, Shana Castro, Edison Lang and colleagues, with an educational shruthi from [employer]. Review of Systems Const Denies chills, Reports fatigue, Denies fever(s) and Denies headache(s) ENT Denies dysphagia, Denies dizziness, Denies otalgia, Denies headache(s), Reports neck pain (chronic), Denies odynophagia and Denies sore throat Card Denies chest pain, Denies palpitations and Reports dyspnea on exertion (mild) Resp Denies chest congestion, Reports cough (coughs up some thick whitish phlegm at times), Reports dyspnea on exertion (mild) and Denies wheezing GI Denies abdominal pain, Denies constipation, Denies dysphagia, Denies heartburn, Denies diarrhea, Denies nausea, Denies odynophagia and Denies vomiting Denies nocturia, Denies dysuria, Reports urinary incontinence (at times) and Denies urinary urgency Musc Reports back pain (over the lumbar spine - chronic), Reports arthralgias (over the left knee and left ankle) and Reports neck pain (chronic) Skin/Breast Details: (+) wounds on the right lower leg, which is currently bandaged Denies rash Neuro Denies dizziness and Denies headache(s) Endo Reports fatigue and Denies palpitations Aller/Immun Denies wheezing Physical exam (Primary Care) Vital Signs: Last Vital Signs Pulse 85 11/03/23 14:44 BP 118/68 11/03/23 14:44 Pulse Ox 96 11/03/23 14:44 Oxygen Delivery Method Room Air 11/03/23 14:44 Tobacco/Smoking Status: Tobacco use Status Tobacco use date assessed 11/03/23 11/03/23 14:49 Patient Tobacco Use Status Current everyday Tobacco 11/03/23 14:49 Tobacco use type Cigarette 11/03/23 14:49 e-Cigarette/Vaping Use Never Used 11/03/23 14:49 PHQ-9: PHQ-9 Score PHQ-9: Total score 14 11/03/23 15:13 Depression Screening Interpretation: Positive Depression Screening Follow-up: Existing condition and In treatment Thrive Assessment: Date of Thrive Assessment Date Thrive assessed 11/03/23 11/03/23 14:49 Currently or been in a relationship where the following occur: No concerns reported Const General: no acute distress and alert Limitations: wheelchair HENMT Ears: TM's normal bilaterally and EAC's normal Throat: Yes posterior oropharynx normal and Yes tonsils normal (no TP congestion) Neck Neck: Yes no lymphadenopathy and Yes supple Thyroid: Thyroid normal Resp Auscultation: no crackles, no rales, rhonchi (occasional), no wheezes and diminished lung sounds (slightly) bilateral Cardio Rate: regular rate Rhythm: regular rhythm Heart sounds: no murmurs GI Palpation (GI): Soft to palpation and nontender Auscultation: normal bowel sounds Back/Spine/Pelvis Cervical Spine: Cervical spine tenderness Thoracic/Lumbar Spine: lumbar spinal tenderness Skin Other: the right lower leg is presently covered up in bandages so unable to examine leg today - she is being followed up regularly by [facility] for wound care services Rashes: no rashes Extrem Other: patient's right lower leg is presently covered up in bandages so unable to examine leg today - she is being followed up regularly by [facility] for wound care services General: Yes no clubbing, cyanosis or edema Assessment and Plan Assessment & Plan (1) Wound of right lower extremity: Code(s): S81.801A - Unspecified open wound, right lower leg, initial encounter Qualifiers: Encounter type: sequela Qualified Code(s): S81.801S - Unspecified open wound, right lower leg, sequela Plan: Patient first sustained this injury when she accidentally cut herself on the edge of a hotel bed back in October 2022 Her right lower leg wound was initially sutured in the ER but failed to close by primary healing; sutures were removed a couple of weeks later and her right leg wound has persisted and has not completely healed up or closed since She is currently being managed by [facility] for wound care services (2) Coronary atherosclerosis: Comment: Cardiac cath done in 2017 showed moderate ostial left main disease at 40-50% angiographically, moderate mid RCA disease at 60%, mild LCX disease, normal LVEDP; moderate left main and RCA disease seem unrelated to the presentation as V gram suggests mid-cavitary Takotsubo's cardiomyopathy Recommend conservative medical treatment for CAD with aspirin, statins and risk factor modification Code(s): I25.10 - Atherosclerotic heart disease of [place] coronary artery without angina pectoris Qualifiers: Associated angina: unspecified whether angina present Coronary Disease- Associated Artery/Lesion type: [place] artery [place] vs. transplanted heart: [place] heart Qualified Code(s): I25.10 - Atherosclerotic heart disease of [place] coronary artery without angina pectoris Plan: Continue Aspirin 81 mg QD and Metoprolol ER 100 mg QD She was started on Atorvastatin 20 mg QD by Cardiology months ago but she could not tolerate the medication due to side effects (myalgia) and she stopped taking eventually Her total and LDL cholesterol levels were at 219 mg/dl and 124 mg/dl respectively when they were last checked in July 2019 and have instructed patient to try and get her previously ordered follow up labs done CAT[facility] Follow-up with cardiology at [facility] as scheduled (3) Takotsubo cardiomyopathy: Comment: Echocardiogram done showed reduced ejection fraction of 25-35% with regional wall motion abnormalities Code(s): I51.81 - Takotsubo syndrome Plan: Patient currently appears compensated based on her current symptoms; symptoms have improved with IV diuresis in the past Reinforced fluid restriction Continue Furosemide 20 mg BID, Lisinopril 20 mg QD and Metoprolol ER 100 mg QD Will send patient for repeat echocardiogram for follow-up/further evaluation Follow up with cardiology as scheduled (4) Pure hypercholesterolemia: Code(s): E78.00 - Pure hypercholesterolemia, unspecified Plan: Reinforced low cholesterol diet She stopped taking Atorvastatin 20 mg QD several months ago due to side effects (myalgia) Her total and LDL cholesterol levels were at 219 mg/dl and 124 mg/dl respectively when they were last checked over 4 years ago in July 2019 Will have her go and recheck her labs and fasting lipids CATARINA for follow-up (5) Asthma: Code(s): J45.909 - Unspecified asthma, uncomplicated Qualifiers: Asthma complication type: unspecified Asthma persistence: persistent Asthma severity: moderate Qualified Code(s): J45.40 - Moderate persistent asthma, uncomplicated Plan: Patient states that her asthma has been better controlled lately Continue Spiriva Respimat 2.5 mcg 2 puffs once a day, Ventolin HFA 2 puffs 4 times a day as needed and Montelukast 10 mg QD Continue nebulization Tx with Duoneb up to 4 times a day as needed (6) Lumbar degenerative disc disease: Code(s): M51.36 - Other intervertebral disc degeneration, lumbar region Plan: Reinforced activity and weight-lifting restrictions Continue Morphine ER 60 mg q 8 hours PRN, Morphine IR 15 mg QID PRN and Carisoprodol 350 mg QID PRN (Rx refilled) (7) Fibromyalgia: Code(s): M79.7 - Fibromyalgia Plan: Reinforced regular exercise (as tolerated) and increased physical activity to help manage her fibromyalgia symptoms better although patient's activity t olerance is very limited so this is probably not realistic and not to be expected Her previous right ankle fracture and persistent right lower leg wound also make physical activities even more challenging for her Continue Gabapentin 600 mg capsules TID (8) GERD without esophagitis: Code(s): K21.9 - Gastro-esophageal reflux disease without esophagitis Plan: Dietary restrictions reinforced Continue Famotidine 20 mg BID PRN (9) Impaired fasting glucose: Code(s): R73.01 - Impaired fasting glucose Plan: Reinforced low calorie diet/exercise as tolerated Her HgbA1c was normal at 5.3% when last checked in 2019, and her FBS have been normal when checked over the past few years (10) Allergic rhinitis: Code(s): J30.9 - Allergic rhinitis, unspecified Qualifiers: Allergic rhinitis seasonality: unspecified Allergic rhinitis trigger: unspecified Qualified Code(s): J30.9 - Allergic rhinitis, unspecified Plan: Continue Cetirizine 10 mg QD PRN (11) Vitamin D deficiency: Code(s): E55.9 - Vitamin D deficiency, unspecified Plan: Continue Vitamin D3 2000 units QD (12) Vitamin B12 deficiency: Code(s): E53.8 - Deficiency of other specified B group vitamins Plan: Continue Vitamin B12 tablets 1000 mcg QD (13) Insomnia: Code(s): G47.00 - Insomnia, unspecified Qualifiers: Insomnia type: unspecified Qualified Code(s): G47.00 - Insomnia, unspecified Plan: Sleep hygiene reinforced - states that Clonazepam helps with her sleep at night (14) Anxiety: Code(s): F41.9 - Anxiety disorder, unspecified Plan: Continue Clonazepam 1 mg BID PRN (15) Depression: Code(s): F32.9 - Major depressive disorder, single episode, unspecified Qualifiers: Depression Type: unspecified Qualified Code(s): F32.9 - Major depressive disorder, single episode, unspecified Plan: Continue Citalopram 20 mg QD Follow up with psychiatry as scheduled (16) Smoking: Code(s): F17.200 - Nicotine dependence, unspecified, uncomplicated Plan: Counseled again on smoking cessation (17) Obesity (BMI 30-39.9): Code(s): E66.9 - Obesity, unspecified Plan: Reinforced diet; exercise and weight loss are unrealistic given patient's physical issues and comorbidities Plan Follow up in 3 months Medications: Refilled morphine 15 mg PO QID 28 days PRN 112 tabs 0RF pain M51.36 - Other intervertebral disc degeneration, lumbar region carisoprodol 350 mg PO QID 14 days PRN 56 tabs 0RF muscle pain M51.36 - Other intervertebral disc degeneration, lumbar region Coding Level of Care Code Est Pt Level 4 (32285) Complex EM visit Add On G2211 Diagnoses Wound of right lower extremity, sequela S81.801S Encounter type: sequela Atherosclerosis of [place] coronary artery of [place] heart, unspecified whether angina present I25.10 Associated angina: unspecified whether angina present Coronary Disease-Associated Artery/Lesion type: [place] artery [place] vs. transplanted heart: [place] heart Takotsubo cardiomyopathy I51.81 Pure hypercholesterolemia E78.00 Moderate persistent asthma, unspecified whether complicated J45.40 Asthma complication type: unspecified Asthma persistence: persistent Asthma severity: moderate Lumbar degenerative disc disease M51.36 Fibromyalgia M79.7 GERD without esophagitis K21.9 Impaired fasting glucose R73.01 Allergic rhinitis, unspecified seasonality, unspecified trigger J30.9 Allergic rhinitis seasonality: unspecified Allergic rhinitis trigger: unspecified Vitamin D deficiency E55.9 Vitamin B12 deficiency E53.8 Insomnia, unspecified type G47.00 Insomnia type: unspecified Anxiety F41.9 Depression, unspecified depression type F32.9 Depression Type: unspecified Smoking F17.200 Obesity (BMI 30-39.9) E66.9
== END 2023-11-03 15:22 | disposition home or self-care (01) ==
PROVIDERS: PCP Internal Medicine; Visit Provider Internal Medicine
DX: S81.801D Unspecified open wound, right lower leg, subsequent encounter (principal); I25.10 Atherosclerotic heart disease of native coronary artery without angina pectoris; I51.81 Takotsubo syndrome; E78.00 Pure hypercholesterolemia, unspecified; J45.40 Moderate persistent asthma, uncomplicated; M51.36 Other intervertebral disc degeneration, lumbar region; M79.7 Fibromyalgia; K21.9 Gastro-esophageal reflux disease without esophagitis; R73.01 Impaired fasting glucose; J30.9 Allergic rhinitis, unspecified; E55.9 Vitamin D deficiency, unspecified; E53.8 Deficiency of other specified B group vitamins; G47.00 Insomnia, unspecified; F41.9 Anxiety disorder, unspecified; F17.200 Nicotine dependence, unspecified, uncomplicated
CPT/HCPCS: 99214; G2211

== ENCOUNTER 2023-12-17 14:13 | Outpatient (AMB) | payer OTHER, SELFPAY ==
--- NOTE | 2023-12-17 14:19 | A.OFFVIS_ITS ---
Intake Visit Reasons: follow up per Wound Care Intake Note: Patient presents for wound care follow up. Patient states her wound was doing better but was debrided at her last visit with woundcare and states it got worse and is larger now. Visiting nurse changes dressings three times a week. Patient states she goes to wound care Allergies cephalexin [Keflex] Allergy (Unknown, Verified 12/17/23 14:29) Unknown ciprofloxacin Allergy (Unknown, Verified 12/17/23 14:29) Unknown codeine Allergy (Unknown, Verified 12/17/23 14:29) codeine phosphate- unknown doxycycline Allergy (Unknown, Verified 12/17/23 14:29) pruritic rash duloxetine [Cymbalta] Allergy (Unknown, Verified 12/17/23 14:29) swelling of throat and tongue levofloxacin Allergy (Unknown, Verified 12/17/23 14:29) Unknown NSAIDS (Non-Steroidal Anti-Inflamma Allergy (Unknown, Verified 12/17/23 14:29) Unknown penicillin V Allergy (Unknown, Verified 12/17/23 14:29) Unknown prednisone Allergy (Unknown, Verified 12/17/23 14:29) Unknown Sulfa (Sulfonamide Antibiotics) Allergy (Unknown, Verified 12/17/23 14:29) Unknown theophylline Allergy (Unknown, Verified 12/17/23 14:29) Unknown clarithromycin Adverse Reaction (Unknown, Verified 12/17/23 14:29) Unknown insect sting Allergy (Unknown, Uncoded 11/03/23 15:10) anaphylaxis HPI HPI follow up per Wound Care: Details: Emotional 63-year-old female presents for follow-up regarding nonhealing right calf ulceration. She had been [facility]. This began back in 2022 when she cut herself on hotel bed. This was sutured in eventually opened up. She had been following with the [facility]. She reports that it was healing and then subsequently new doctor had debrided it and the wound increased in size. She now presents to us for vascular evaluation [facility] Medical History Allergic rhinitis Vitamin D deficiency Functional urinary incontinence Takotsubo cardiomyopathy Coronary atherosclerosis Acute kidney injury Acute respiratory failure with hypoxia and hypercapnia Acute systolic CHF (congestive heart failure) Metabolic encephalopathy Obesity (BMI 30-39.9) Smoking Depression Anxiety Insomnia Vitamin B12 deficiency Impaired fasting glucose GERD without esophagitis Pure hypercholesterolemia Fibromyalgia Lumbar degenerative disc disease Asthma Surgical History No pertinent past surgical history Family History Father Medical history unknown Mother Diabetes Hypertension CVD (cardiovascular disease) Stroke Other Mental health problem Social History Housing: House Alcohol intake: never Patient Tobacco Use Status: Current everyday Tobacco user Tobacco use type: Cigarette Cigarettes Per Day: 5 e-Cigarette/Vaping Use: Never Used Second Hand Smoke Exposure: Yes service: No Current occupational status: disabled Cognitive needs: No Hearing needs: No Vision needs: Yes Review of Systems Const All systems reviewed & are unremarkable except as noted in HPI and below Reports no additional complaints ENT Reports Normal hearing present Card Denies chest pain, Denies chest pain at rest, Denies chest pain with activity and Denies pedal edema Resp Denies cough GI Denies abdominal pain Musc Denies abnormal gait, Denies muscle cramps and Denies radiating pain into limb Skin/Breast Denies skin ulcer and Denies wounds Neuro Reports Normal hearing present and Denies abnormal gait Psych Reports no additional complaints Physical Exam Const General: cooperative, healthy appearing and comfortable Orientation/consciousness: oriented to person, oriented to place and oriented to time HEENT Head: Yes normal to inspection Neck Neck: Yes normal visual inspection Carotids: no bruits Chest Chest palpation & inspection: normal inspection of the chest Resp Effort & Inspection: normal respiratory effort and able to speak in complete sentences Auscultation: clear to auscultation bilaterally, no crackles, no rales, no rhonchi and no wheezes Cardio Other: Bilateral DP signals Rate: regular rate Rhythm: regular rhythm Heart sounds: S1 normal heart sound present and S2 normal heart sound present Bruits: no carotid bruits Peripheral pulses: Peripheral pulses 2+ throughout GI Inspection: Yes normal to inspection Skin Other: Right medial calf open wound measuring 10 x 2 x 0.2 cm Wounds: no wounds Hair: normal Neuro General: oriented to person, oriented to place and oriented to time Cranial nerves: Yes CN's II-XII intact bilaterally and Yes Normal hearing present Cognition (Neuro): normal cognition Motor exam (neuro): 5/5 motor strength present throughout Extrem Other: venous exam: No significant superficial varicosities or spider telangiectasias, minimal edema General: No clubbing, No cyanosis and No edema Psych Appearance: grossly normal Mental Status: mental status grossly normal Speech and movement: Normal speech and movement present Results Reviewed Results Reviewed: Noninvasive arterial testing dated 04/20/2023 Right leg: Mildly decreased ankle brachial index. Diffuse monophasic waveforms throughout the right lower extremity indicating a more proximal aortoiliac inflow disease. Patent flow throughout the femoral, popliteal and runoff vessels Assessment & Plan Assessment & Plan (1) PAD (peripheral artery disease): Code(s): I73.9 - Peripheral vascular disease, unspecified Category: Medical Plan: Patient notes leg pain when walking distances. I have discussed the pathophysiology of peripheral vascular disease with the patient. I have also discussed risk factor modification. I have reviewed the patient's arterial testing which reveals question of right lower extremity inflow disease. the patient would benefit from a right leg endovascular peripheral angiogram with possible angioplasty, stent, and/or atherectomy. This has been discussed in detail with the patient along with risks, benefits, and complications. This includes but is not limited to bleeding, infection, heart attack, need for emergent surgical repair, limb ischemia, blood vessel damage, bleeding, puncture, kidney injury, bruising, allergic reaction, and skin reaction. The patient demonstrates a clear understanding. We will schedule for the next maxwell ropriate time. Thank you for allowing us to assist in this patient's care. Coding Level of Care Code Est Pt Level 4 (17627) Complex EM visit Add On G2211 Diagnoses PAD (peripheral artery disease) I73.9
== END 2023-12-17 14:56 | disposition home or self-care (01) ==
PROVIDERS: PCP Internal Medicine; Visit Provider Surgery Vascular Surgery
DX: I73.9 Peripheral vascular disease, unspecified (principal)
CPT/HCPCS: 99214; G2211

== ENCOUNTER → 2023-12-17 14:13 | Outpatient (BNVA) | payer OTHER, SELFPAY | PROVIDERS: PCP Internal Medicine; Visit Provider Surgery Vascular Surgery | DX: I73.9 Peripheral vascular disease, unspecified (principal); L97.219 Non-pressure chronic ulcer of right calf with unspecified severity; F17.210 Nicotine dependence, cigarettes, uncomplicated | CPT/HCPCS: 99212 ==

== ENCOUNTER 2023-12-30 06:57 | Day surgery (SDC) | payer OTHER, SELFPAY ==
[2023-12-30] VITALS (8 sets, daily range): BP systolic 95–113; BP diastolic 37–66; PULSE 78–88; RESP 18; TEMP 36.8–36.9; O2SAT 95–97; BMI 27.1
[2023-12-30 08:24] LABS: MANUAL DIFF FLAG NO
[2023-12-30 08:28] LABS: Basophils Absolute Auto 0.1 X10*3/uL (0.0-0.2); Basophils Percent Auto 0.7 % (0-2); Eosinophils Absolute Auto 0.3 X10*3/uL (0.0-0.4); Eosinophils Percent Auto 3.7 % (0-4); Hemoglobin 12.4 g/dl (12.0-16.0); Imm Gran Abs Auto 0.03 X10*3/uL (0.00-0.03); Imm Gran Pct Auto 0.3 % (0.0-0.4); Lymphocytes Percent Auto 22.1 % (20-40); Mean Corpuscular HGB Conc 34.4 g/dl (31.0-35.0); Mean Corpuscular Hemoglobin 31.7 pg (27.0-33.0); Mean Corpuscular Volume 92.1 fL (80.0-98.0); Monocytes Absolute Auto 0.6 X10*3/uL (0.1-1.2); Monocytes Percent Auto 6.6 % (2-11); Neutrophils Percent Auto 66.6 % (45-73); Platelet Count 233 X10*3/uL (160-400); Red Blood Count 3.91 X10*6/uL (4.20-5.50); Red Cell Distribution Width 11.8 % (11.0-16.0)
[2023-12-30 08:38] LABS: Blood Urea Nitrogen 12 mg/dL (9-16); Creatinine Clr Calc Pharmacy 76.8; Estimated Glomerular Filt Rate > 60
--- NOTE | 2023-12-30 12:57 | P.OP_ITS ---
Operative Note Operative Note Date of Service: 12/30/23 Narrative: Angiogram report from [facility] Preoperative diagnosis: Atherosclerosis of right lower extremity with activity limiting claudication Postoperative diagnosis: Same Procedure: 1. Ultrasound-guided left common femoral access 2. Aortogram with bilateral lower extremity runoff 3. Right external iliac stent Surgeon:Roque Hernandez M.D., FACS, RPVI Ingot Buggy Operator:None Anesthesia: Local with moderate conscious sedation. Total intraservice moderate sedation time was 42 minutes. I monitored the patient's level of consciousness and physiologic status continuously throughout the procedure. Specimens:none Drains:none Estimated blood loss: Less than 10 ml Implant: Medtronic visi Pro 7 x 17 balloon expandable stent Indications: Very complex 63-year-old female who upon noninvasive workup was concern for peripheral vascular disease. She had monophasic flow so there was concern of inflow disease. She now presents for endovascular intervention. The patient has signed the informed consent after reviewing risks, complications, benefits, and alternatives previously discussed with the patient. The patient was given the opportunity to ask any additional questions or voice any concerns. All questions were answered to the patient's satisfaction. Procedure in detail: Patient was brought to the angiography suite prior to which a time-out was called for patient identification and site verification. Bilateral groins were prepped and draped in the standard surgical fashion. Under ultrasound guidance left common femoral was punctured with micro puncture needle and wire. Subsequently a precision 4 South African sheath was then placed. Bentson wire was advanced to the level of the aorta. 4 South African Flush catheter was brought up and parked at the level of the renal arteries. Aortogram was then undertaken. Catheter was brought down to the level of the iliac bifurcation. Iliacs were subsequently imaged. Catheter was then brought in up and over to the right side SFA. Runoff study was then undertaken. There was a high-grade stenosis at the junction of the external iliac in the takeoff of the hypogastric on the right side. We were able to traverse this with a Glidewire advantage and we brought this into the SFA. At this time 5000 units of systemic heparin was administered and an additional 2000 units was required to achieve therapeutic ACT. Once we did this we brought the up and over 6 South African sheath to the common iliac on the right side. We then the origin of the external iliac plasty this area with a 6 x 20 balloon. We subsequently brought in a 7 x 17 balloon expandable stent. This was placed just below the takeoff of the hypogastric in the origin of the external iliac. This was insufflated to full diameter. Once this was done completion angiogram demonstrated excellent result. We brought the catheter back to the ipsilateral side and through the catheter we then did a runoff study. StarClose closure device was deployed. Patient tolerated the procedure well. Returned to recovery with stable vitals. Interpretation of films: 1. Ultrasound demonstrates appropriate femoral access site. Vessel was patent with minimal stenosis. Needle entry was visualized. Image of ultrasound was saved. 2. Aortogram demonstrates appropriate caliber aorta. Minimal disease. Appropriate take-off of the renals. 3. Iliac images demonstrate high-grade stenosis at the right external iliac. Multiple orthogonal views had to be undertaken as there was prior hardware from spine surgery 4. Right Common femoral artery: No significant disease Profundus Femoris: No significant disease Superficial femoral artery: No significant disease Popliteal artery (p1,p2,p3): No significant disease Anterior tibial artery: No significant disease Peroneal artery: No significant disease but diminutive Posterior tibial artery: No significant disease Dorsalis pedis/plantar arch: Complete 5. Left Common femoral artery: No significant disease Profundus Femoris: No significant disease Superficial femoral artery: No significant disease Popliteal artery (p1,p2,p3): No significant disease Anterior tibial artery: No significant disease Peroneal artery: No significant disease but diminutive Posterior tibial artery: No significant disease Dorsalis pedis/plantar arch: Complete Conclusion: 1. Successful right external iliac stenting 2. Anticoagulation status: 6 months of aspirin and Plavix This note is constructed using voice recognition software. While every effort has been made to ensure accuracy, licensed mortgage loan officer errors may have been included. Thank you for allowing me to participate in the care of your patient. Yours sincerely, Roque Hernandez MD, FACS, R.P.V.I.
[2023-12-30] MEDS: Clopidogrel Bisulfate 300 MG TABLET PO (14:17)
[2023-12-30] MEDS: Morphine Sulfate 2 MG/ML CARTRIDGE 4 MG IVPUSH (14:22)
[2023-12-30] MEDS: Acetaminophen 325 MG TABLET 650 MG PO (15:18)
[2023-12-31 14:41] LABS: ACT 195 Celite s (79-173); ACT 197 Celite s (79-173)
== END 2023-12-30 16:30 | disposition home or self-care (01) ==
PROVIDERS: PCP Internal Medicine; Visit Provider Surgery Vascular Surgery
DX: I70.211 Atherosclerosis of native arteries of extremities with intermittent claudication, right leg (principal); I25.10 Atherosclerotic heart disease of native coronary artery without angina pectoris; I50.21 Acute systolic (congestive) heart failure; I51.81 Takotsubo syndrome; E78.00 Pure hypercholesterolemia, unspecified; R73.01 Impaired fasting glucose; J96.02 Acute respiratory failure with hypercapnia; J96.01 Acute respiratory failure with hypoxia; N17.9 Acute kidney failure, unspecified; J45.909 Unspecified asthma, uncomplicated; F17.210 Nicotine dependence, cigarettes, uncomplicated; Z88.1 Allergy status to other antibiotic agents; Z88.0 Allergy status to penicillin; Z88.2 Allergy status to sulfonamides; Z88.5 Allergy status to narcotic agent; Z88.8 Allergy status to other drugs, medicaments and biological substances
CPT/HCPCS: 36415; 37221; 76937; 82565; 84520; 85025; 85347; 99152; 99153; C1725; C1760; C1769; C1876; C1887; C1894; J1644; J2250; J2270; J2310; J3010; Q9967

== ENCOUNTER → 2023-12-30 06:57 | Outpatient (BNV) | payer OTHER, SELFPAY | PROVIDERS: PCP Internal Medicine; Visit Provider Surgery Vascular Surgery | DX: I70.211 Atherosclerosis of native arteries of extremities with intermittent claudication, right leg (principal) | CPT/HCPCS: 37221; 75625; 75710; 76937 ==

== ENCOUNTER 2024-01-12 14:12 | Outpatient (AMB) | payer OTHER, SELFPAY ==
--- NOTE | 2024-01-12 14:15 | MHC.OFFVIS ---
Intake Visit Reasons: Right angio follow up Intake Note: 2 wk follow up Right Angio 12/30/23, pt states complaints over hospital experience, she had some issues during stay. Does state that Right LE wound is starting to heal. VNA 3 times per week. Accompanied by: Spouse Allergies cephalexin [Keflex] Allergy (Unknown, Verified 01/12/24 14:21) Unknown ciprofloxacin Allergy (Unknown, Verified 01/12/24 14:21) Unknown codeine Allergy (Unknown, Verified 01/12/24 14:21) codeine phosphate- unknown doxycycline Allergy (Unknown, Verified 01/12/24 14:21) pruritic rash duloxetine [Cymbalta] Allergy (Unknown, Verified 01/12/24 14:21) swelling of throat and tongue levofloxacin Allergy (Unknown, Verified 01/12/24 14:21) Unknown NSAIDS (Non-Steroidal Anti-Inflamma Allergy (Unknown, Verified 01/12/24 14:21) Unknown penicillin V Allergy (Unknown, Verified 01/12/24 14:21) Unknown prednisone Allergy (Unknown, Verified 01/12/24 14:21) Unknown Sulfa (Sulfonamide Antibiotics) Allergy (Unknown, Verified 01/12/24 14:21) Unknown theophylline Allergy (Unknown, Verified 01/12/24 14:21) Unknown latex Allergy (Verified 01/12/24 14:21) Hives clarithromycin Adverse Reaction (Unknown, Verified 01/12/24 14:21) Unknown insect sting Allergy (Unknown, Uncoded 01/12/24 14:21) anaphylaxis HPI HPI Right angio follow up: Details: Very pleasant 63-year-old female presents for postprocedure evaluation regarding endovascular intervention. She has a nonhealing right calf ulcer. She now presents for routine postprocedure follow-up. She does report that the right calf ulcer appears to be healing and doing much better. She also reports that her leg and foot feel significantly warmer to her. [facility] Medical History Allergic rhinitis Vitamin D deficiency Functional urinary incontinence Takotsubo cardiomyopathy Coronary atherosclerosis Acute kidney injury Acute respiratory failure with hypoxia and hypercapnia Acute systolic CHF (congestive heart failure) Metabolic encephalopathy Obesity (BMI 30-39.9) Smoking Depression Anxiety Insomnia Vitamin B12 deficiency Impaired fasting glucose GERD without esophagitis Pure hypercholesterolemia Fibromyalgia Lumbar degenerative disc disease Asthma Surgical History No pertinent past surgical history Family History Father Medical history unknown Mother Diabetes Hypertension CVD (cardiovascular disease) Stroke Other Mental health problem Social History Housing: House Alcohol intake: never Patient Tobacco Use Status: Current everyday Tobacco user Tobacco use type: Cigarette Cigarettes Per Day: 5 e-Cigarette/Vaping Use: Never Used Second Hand Smoke Exposure: Yes service: No Current occupational status: disabled Cognitive needs: No Hearing needs: No Vision needs: Yes Review of Systems Const All systems reviewed & are unremarkable except as noted in HPI and below Reports no additional complaints ENT Reports Normal hearing present Card Denies chest pain, Denies chest pain at rest, Denies chest pain with activity and Denies pedal edema Resp Denies cough GI Denies abdominal pain Musc Denies abnormal gait, Denies muscle cramps and Denies radiating pain into limb Skin/Breast Denies skin ulcer and Denies wounds Neuro Reports Normal hearing present and Denies abnormal gait Psych Reports no additional complaints Physical Exam Const General: cooperative, healthy appearing and comfortable Orientation/consciousness: oriented to person, oriented to place and oriented to time HEENT Head: Yes normal to inspection Neck Neck: Yes normal visual inspection Carotids: no bruits Chest Chest palpation & inspection: normal inspection of the chest Resp Effort & Inspection: normal respiratory effort and able to speak in complete sentences Auscultation: clear to auscultation bilaterally, no crackles, no rales, no rhonchi and no wheezes Cardio Other: Bilateral DP signals Rate: regular rate Rhythm: regular rhythm Heart sounds: S1 normal heart sound present and S2 normal heart sound present Bruits: no carotid bruits Peripheral pulses: Peripheral pulses 2+ throughout GI Inspection: Yes normal to inspection Skin Other: Right calf wound measures 10 x 5 x 0.3 cm. Wounds: no wounds Hair: normal Neuro General: oriented to person, oriented to place and oriented to time Cranial nerves: Yes CN's II-XII intact bilaterally and Yes Normal hearing present Cognition (Neuro): normal cognition Motor exam (neuro): 5/5 motor strength present throughout Extrem Other: venous exam: No significant superficial varicosities or spider telangiectasias, minimal edema General: No clubbing, No cyanosis and No edema Psych Appearance: grossly normal Mental Status: mental status grossly normal Speech and movement: Normal speech and movement present Assessment & Plan Assessment & Plan (1) PAD (peripheral artery disease): Comment: 12/30/2023 - right external iliac stents Code(s): I73.9 - Peripheral vascular disease, unspecified Category: Medical Plan: In short patient has nonhealing right calf ulcer. She has done well with her endovascular intervention I did review the pathophysiology of peripheral vascular disease with the patient. In addition we did discuss routine conservative measures including a healthy diet and the importance of exercise and ambulation. We did discuss risk factor modification. The patient will continue to to follow-up with surveillance follow-up in approximately 3 months. Thank you for allowing us to participate in this patient's care. If there are any questions or concerns please do not hesitate to contact us. Orders: Orders US arterial duplex LE BI 3 Months I73.9 - Peripheral vascular disease, unspecified Coding Level of Care Code Est Pt Level 4 (56149) Complex EM visit Add On G2211 Diagnoses PAD (peripheral artery disease) I73.9
== END 2024-01-12 14:43 | disposition home or self-care (01) ==
PROVIDERS: PCP Internal Medicine; Visit Provider Surgery Vascular Surgery
DX: I73.9 Peripheral vascular disease, unspecified (principal)
CPT/HCPCS: 99214; G2211

== ENCOUNTER → 2024-01-12 14:12 | Outpatient (BNVA) | payer OTHER, SELFPAY | PROVIDERS: PCP Internal Medicine; Visit Provider Surgery Vascular Surgery | DX: I73.9 Peripheral vascular disease, unspecified (principal) | CPT/HCPCS: 99212 ==

== ENCOUNTER 2024-03-18 14:10 | Outpatient (REF) | payer OTHER, SELFPAY ==
--- NOTE | ~2024-03-18 | US_ITS ---
EXAMINATION: US NONINVASIVE ASSESSMENT OF THE BOTH LOWER EXTREMITIES WITH ARTERIAL DUPLEX AND ANKLE BRACHIAL INDICES (ABIS) CLINICAL INFORMATION: Peripheral vascular disease, unspecified. COMPARISON: None available. TECHNIQUE: Duplex Doppler techniques with waveform analysis and measurement of velocities in the common femoral, profunda femoris, superficial femoral, popliteal and tibial arteries were performed. In addition, ankle pulse volume recordings, ankle pressure measurements and ankle brachial indices were obtained of the both lower extremities arterial system. The study was performed only at rest. FINDINGS: NONINVASIVE ASSESSMENT OF THE ARTERIES OF BILATERAL LOWER EXTREMITIES WITH ABIs: RIGHT LEG: Ankle-brachial index: 1.08 Ankle PVR: Abnormal LEFT LEG: Ankle-brachial index: 1.0 Left ankle PVR: Abnormal. DEANNE Reference: 0.9 - 1.4 = normal - no significant arterial disease 0.7 - 0.89 = mild peripheral arterial disease 0.51 - 0.69 = moderate peripheral arterial disease 0.50 = severe peripheral arterial disease RIGHT LOWER EXTREMITY DUPLEX ULTRASOUND: Common femoral artery: 180 cm/s. Monophasic waveforms. Profunda femoris artery: 125 cm/s. Monophasic waveforms. Superficial femoral artery (proximal): 123 cm/s. Monophasic waveforms. Superficial femoral artery (mid): 111 cm/s. Monophasic waveforms. Superficial femoral artery (distal): 126 cm/s. Monophasic waveforms. Popliteal artery: 106 cm/s Monophasic waveforms. Posterior tibial artery: 51 cm/s Monophasic waveforms. LEFT LOWER EXTREMITY DUPLEX ULTRASOUND: Common femoral artery: 156 cm/s. Monophasic waveform. Profunda femoris artery: 56 cm/s. Monophasic waveforms. Superficial femoral artery (proximal): 92 cm/s. Monophasic waveforms. Superficial femoral artery (mid): 94 cm/s. Monophasic waveform. Superficial femoral artery (distal): 96 cm/s. Monophasic waveforms. Popliteal artery: 102 cm/s Monophasic waveforms. Posterior tibial artery: 68 cm/s Monophasic waveforms. US/US abdominal aortic aneurysm IMPRESSION: Severe inflow disease both lower extremities from the common femoral arteries to the posterior tibialis artery. Electronically signed by: Moises Tyson MD 03/21/2024 03:55 PM [facility] [place]
--- NOTE | ~2024-03-18 | US_ITS ---
EXAMINATION: US NONINVASIVE ASSESSMENT OF THE BOTH LOWER EXTREMITIES WITH ARTERIAL DUPLEX AND ANKLE BRACHIAL INDICES (ABIS) CLINICAL INFORMATION: Peripheral vascular disease, unspecified. COMPARISON: None available. TECHNIQUE: Duplex Doppler techniques with waveform analysis and measurement of velocities in the common femoral, profunda femoris, superficial femoral, popliteal and tibial arteries were performed. In addition, ankle pulse volume recordings, ankle pressure measurements and ankle brachial indices were obtained of the both lower extremities arterial system. The study was performed only at rest. FINDINGS: NONINVASIVE ASSESSMENT OF THE ARTERIES OF BILATERAL LOWER EXTREMITIES WITH ABIs: RIGHT LEG: Ankle-brachial index: 1.08 Ankle PVR: Abnormal LEFT LEG: Ankle-brachial index: 1.0 Left ankle PVR: Abnormal. DEANNE Reference: 0.9 - 1.4 = normal - no significant arterial disease 0.7 - 0.89 = mild peripheral arterial disease 0.51 - 0.69 = moderate peripheral arterial disease 0.50 = severe peripheral arterial disease RIGHT LOWER EXTREMITY DUPLEX ULTRASOUND: Common femoral artery: 180 cm/s. Monophasic waveforms. Profunda femoris artery: 125 cm/s. Monophasic waveforms. Superficial femoral artery (proximal): 123 cm/s. Monophasic waveforms. Superficial femoral artery (mid): 111 cm/s. Monophasic waveforms. Superficial femoral artery (distal): 126 cm/s. Monophasic waveforms. Popliteal artery: 106 cm/s Monophasic waveforms. Posterior tibial artery: 51 cm/s Monophasic waveforms. LEFT LOWER EXTREMITY DUPLEX ULTRASOUND: Common femoral artery: 156 cm/s. Monophasic waveform. Profunda femoris artery: 56 cm/s. Monophasic waveforms. Superficial femoral artery (proximal): 92 cm/s. Monophasic waveforms. Superficial femoral artery (mid): 94 cm/s. Monophasic waveform. Superficial femoral artery (distal): 96 cm/s. Monophasic waveforms. Popliteal artery: 102 cm/s Monophasic waveforms. Posterior tibial artery: 68 cm/s Monophasic waveforms. US/US arterial duplex BI w/ DEANNE IMPRESSION: Severe inflow disease both lower extremities from the common femoral arteries to the posterior tibialis artery. Electronically signed by: Moises Tyson MD 03/21/2024 03:55 PM [facility]
--- OUTSIDE RECORDS SUMMARY | 2024-03-18 15:51 | XMS_ITS | Clinical Summary ---
Author Organization [employer] Address [address] [place] [address] [address] [place] [address] Care Team Providers Care Computator Name Role Phone Hector Paige MD Primary Care Provider Allergies Active Allergy Reactions Criticality Noted Date Comments Cephalexin Unknown 09/25/2023 Ciprofloxacin 09/25/2023 Cyclobenzaprine Unknown 09/25/2023 Ibuprofen Unknown 09/25/2023 Latex 09/25/2023 Levofloxacin Unknown 09/25/2023 Nsaids 09/25/2023 Oxycodone-Acetaminophen Unknown 09/25/2023 Penicillins Anaphylaxis,Unknown High 09/25/2023 Prednisone 09/25/2023 Sulfa Antibiotics 09/25/2023 Sulfamethoxazole-Trimethoprim Unknown 2023 Medications ASPIRIN 81 MG chewable tablet Chew 1 tablet. 08/03/19 22 Active carisoprodol (Soma) 350 MG tablet TAKE 1 TABLET BY MOUTH FOUR TIMES A DAY NEEDED FOR MUSCLE PAIN FOR 28 DAYS Active cetirizine (ZyrTEC) 10 MG tablet Take 10 mg by mouth Once per day. Active cholecalcifero l VITAMIN D (Vitamin D-3) 50 MCG (1999 UT) capsule Take by mouth Once per day. 09/18/19 24 Active citalopram (CeleXA) 40 MG tablet Take 40 mg by mouth. 30 mg 07/03/19 21 Active clonazePAM (KlonoPIN) 1 MG tablet Take 1 mg by mouth 2 times daily. Active Cyanocobalamin (Vitamin B 12) 100 MCG lozenge Orally Active EPINEPHrine (Epipen) 0.3 MG/0.3ML injection syringe 0.3 MG (0.3 ML) INTRAMUSCULARLY ONCE FOR 2 DOSES-USE DIRECTED 10/09/19 23 Active famotidine (Pepcid) 20 MG tablet Take 20 mg by mouth 2 times daily. Active folic acid (Folvite) 1 MG tablet Take 1,000 mcg by mouth Once per day. 08/07/19 24 Active furosemide (Lasix) 20 MG tablet TAKE 1 TABLET BY MOUTH 2 TIMES A DAY NEEDED FOR EDEMA Activ e gabapentin (Neurontin) 300 MG capsule TAKE 2 CAPSULE BY MOUTH 3 TIMES A DAY FOR 30 DAYS 08/18/19 24 Active ipratropium-al buterol (Duo-Neb) 0.5-2.5 mg/3 mL nebulizer solution Inhale 3 mL. 07/03/19 Active lisinopril 20 MG tablet Take 20 mg by mouth Once per day. 08/09/19 24 Active metoprolol succinate XL (Toprol-XL) 100 MG 24 hr tablet Take 100 mg by mouth Once per day. 09/05/19 24 Active morphine CR (MS Contin) 60 MG 12 hr tablet Take 60 mg by mouth every 8 (eight) hours if needed. Active morphine (MSIR) 15 MG tablet TAKE 1 TABLET ORALLY 4 TIMES A DAY NEEDED FOR PAIN FOR 28 DAYS Active mupirocin (Bactroban) 2 % ointment APPLY TOPICALLY 3 TIMES A DAY FOR 14 DAYS 08/18/19 24 Active Spiriva Respimat 2.5 MCG/ACT inhaler INHALE 2 PUFFS EVERY DAY IN THE MORNING FOR 30 DAYS Activ e Ventolin HFA 108 (90 Base) MCG/ACT inhaler 2 PUFF INHALED EVERY 4 HOURS NEEDED FOR FOR WHEEZING Active Active Problems Problem Noted Date Diagnosed Date Age-related nuclear cataract of both eyes 2023 Glaucoma suspect of both eyes 09/25/2023 Macular pucker, left eye 09/25/2023 Social History Tobacco Use Types Packs/Day Years Used Date Smoking Tobacco: Every Day Cigarettes Tobacco Cessation:Ready to Q uit: Not Asked; Counseling Given: Not Answered Comments Unknown Sex and Gender Information Value Date Recorded Sex Assigned at Female 07/07/2023 8:56 AM EDT Legal Sex Female 8:38 PM EDT Gender Identity Female 07/07/2023 8:56 AM EDT Sexual Orientation Something else 07/07/2023 8: 56 AM EDT Last Filed Vital Signs Vital Sign Reading Time Taken Comments Blood Pressure 84/56 09/25/2023 2:19 PM EDT Pulse - - Temperature 36.2 ??C (97.1 ??F) 09/25/2023 2:19 PM ED T Respiratory Rate - - Oxygen Saturation - - Inhaled Oxygen Concentration - - Weight - - Height - - Body Mass Index - - Plan of Treatment Upcoming Encounters Date Type Department Care Team (Georgina st Contact Info) Description 09/26/2024 3:30 PM EDT Office Visit [facility] [address] [place] [address] Glenda Andrew, OD [address] [place] [address] Health Maintenance Due Date Last Done Comments CT Colonography 1962 Colonoscopy 1962 Colorectal Cancer Screening 1962 Depression Screening 1962 FIT DNA/Cologuard 1962 FIT 1962 FOBT 1962 HIV Screening 1962 Lipid Panel 1962 SDOH Screening 1962 Sigmoidoscopy 1962 Pneumococcal Vaccine: Pediatrics (0 to 5 Years) and At-Risk Patients (6 to 64 Years) (1 of 2 - PCV) 1968 Alcohol/Substance Use Screening 1974 Hepatitis C Screening 1980 Pap Smear 11/26/1983 Cervical Cancer Screening 1992 HPV/Cotest 1992 Mammogram 2002 Zoster Vaccines (1 of 2) 2012 COVID-19 Vaccine (2 - season) 2023 06/16/2020 Influenza Vaccine (#1) 2023 0, 11/01/2018, 2017, Additional history exists Tobacco Screening 09/24/2024 09/25/2023 DTaP/Tdap/Td Vaccines (4 - Td or Tdap) 05/08/2030 05/08/2020, 12/08/2018, 07/23/2009 RSV Patients and Patients Aged 60 years or older (1 - 1-dose 75+ series) 2037 HIB Vaccines Aged Out No longer eligi ble based on patient's age to complete this topic HPV Vaccines Aged Out No longer eligi ble based on patient's age to complete this topic Hepatitis A Vaccines Aged Out No long er eligible based on patient's age to complete this topic Hepatitis B Vaccines Aged Out No long er eligible based on patient's age to complete this topic IPV Vaccines Aged Out No longer eligi ble based on patient's age to complete this topic Meningococcal Vaccine Aged Out No francisco rachel eligible based on patient's age to complete this topic RSV under 20 months Aged Out No longe r eligible based on patient's age to complete this topic Rotavirus Vaccines Aged Out No longer eligible based on patient's age to complete this topic Insurance [facility] Care Teams Computator Relationship Specialty Start Date End Date Hector Paige MD [address] [place] [address] PCP - General Internal Medicine 09/24/23
== END 2024-03-18 14:11 | disposition home or self-care (01) ==
LOC: HO.US 14:10
PROVIDERS: PCP Internal Medicine; Visit Provider Surgery Vascular Surgery
DX: I73.9 Peripheral vascular disease, unspecified (principal)
CPT/HCPCS: 76706; 93922; 93925

== ENCOUNTER → 2024-03-18 14:13 | Outpatient (BNV) | payer OTHER, SELFPAY | PROVIDERS: PCP Internal Medicine; Visit Provider Radiology Diagnostic Radiology | DX: I73.9 Peripheral vascular disease, unspecified (principal) | CPT/HCPCS: 76706 ==

== ENCOUNTER 2024-04-13 13:15 | Outpatient (AMB) | payer OTHER, SELFPAY ==
--- NOTE | 2024-04-13 13:19 | MHC.PC.OV ---
Vital Signs 04/13/24 13:20 Height 5 ft 7 in BMI Reason not done Patient refused/unable BP 110/66 Blood Pressure Location Lt brachial Position Sitting Pulse 70 Pulse Source Pulse Oximeter Pulse Oximetry (%) 91 L Oxygen Delivery Method Room Air Intake Visit Reasons: 3 Month F/U gaviota 02/01 Binder Coverstitch Required: No Accompanied by: Self / Same As Patient Allergies cephalexin [Keflex] Allergy (Unknown, Verified 04/15/24 17:28) Unknown ciprofloxacin Allergy (Unknown, Verified 04/15/24 17:28) Unknown codeine Allergy (Unknown, Verified 04/15/24 17:28) codeine phosphate- unknown doxycycline Allergy (Unknown, Verified 04/15/24 17:28) pruritic rash duloxetine [Cymbalta] Allergy (Unknown, Verified 04/15/24 17:28) swelling of throat and tongue levofloxacin Allergy (Unknown, Verified 04/15/24 17:28) Unknown NSAIDS (Non-Steroidal Anti-Inflamma Allergy (Unknown, Verified 04/15/24 17:28) Unknown penicillin V Allergy (Unknown, Verified 04/15/24 17:28) Unknown prednisone Allergy (Unknown, Verified 04/15/24 17:28) Unknown Sulfa (Sulfonamide Antibiotics) Allergy (Unknown, Verified 04/15/24 17:28) Unknown theophylline Allergy (Unknown, Verified 04/15/24 17:28) Unknown latex Allergy (Verified 04/15/24 17:28) Hives clarithromycin Adverse Reaction (Unknown, Verified 04/15/24 17:28) Unknown insect sting Allergy (Unknown, Uncoded 04/15/24 17:28) anaphylaxis Medication List - Last Reconciled 04/17/24 by Hector Paige MD [6 inch sitting cushion pad (for wheelchair) As directed] adhesive bandage (Bandages) multiple different sizes adhesive tape As directed aspirin 81 mg PO DAILY 90 days benzonatate 200 mg PO BID-TID PRN [BODY HEATING PAD As directed] carisoprodol 350 mg PO QID PRN 28 days cetirizine 10 mg PO DAILY chair, wheel (Wheel chair) As directed cholecalciferol (vitamin D3) 50 mcg PO DAILY citalopram 20 mg PO DAILY clonazepam 1 mg PO BID PRN clopidogrel (Plavix) 75 mg PO DAILY collagenase clostridium histo. (Santyl) 1 appl topical DAILY cyanocobalamin (vitamin B-12) 1,000 mcg PO DAILY diphenhydramine HCl 25 mg PO TID PRN [Disposable bed pads 6 per day As directed] Donut pillow As directed elastic bandage (Medigrip Tubular bandage) As directed epinephrine (EpiPen 2-Jnoathon) 0.3 mg (0.3 mL) IM ONCE famotidine 20 mg PO BID folic acid 1 mg PO DAILY furosemide 20 mg PO BID PRN gabapentin 600 mg (2 x 300 mg) PO TID 30 days gauze bandage (Band-Aid Gauze Pads) As directed ipratropium-albuterol 0.5 mg-3 mg(2.5 mg base)/3 mL 3 mL inhalation QID [light weight ezequiel lift As directed] [LIGHTWEIGHT CANE As directed] [LIGHTWEIGHT WHEELCHAIR As directed] lisinopril 20 mg PO DAILY 90 days metoprolol succinate ER 100 mg PO DAILY miscellaneous medical supply 1 ea miscellaneous DAILY miscellaneous medical supply 1 ea miscellaneous .3-5 times daily miscellaneous medical supply 1 ea miscellaneous .5-6 times Daily miscellaneous medical supply 1 ea miscellaneous .4-5 times morphine 15 mg PO QID PRN 28 days morphine ER 60 mg PO Q8H 28 days mupirocin 2% 1 appl topical TID 14 days naloxone 4 mg/actuation (Narcan) 4 mg intranasal Q2M PRN naloxone 4 mg/actuation (Narcan) 4 mg intranasal Q2M PRN [NASAL CANNULA for OXYGEN As directed] [NEBULIZER and all related supplies As directed] oseltamivir (Tamiflu) 75 mg PO BID 5 days [padded shower bench As directed] pyridoxine (vitamin B6) 50 mg PO DAILY 90 days [ROLLATOR As directed] sennosides (senna) 8.6 mg PO BID PRN silver sulfadiazine 1% (Silvadene) 1 appl topical BID silver-hydrocolloid dressing 1.2-3.5 X 14 %- (Aquacel-AG) apply to wounds on lower extremities TID topically; tiotropium bromide 2.5 mcg/actuation (Spiriva Respimat) 2 puffs inhalation QAM 30 days Transfer Bench As directed Ventolin HFA 90 mcg/actuation (albuterol sulfate) 2 puffs inhalation Q4H PRN NS walker As directed [wheelchair with adjustable legs and 3 in pad As directed] Tobacco use date assessed: 04/13/24 Dental Screening Dental Screen Date: 04/13/24 Did you have a dental visit in the last 12 months?: No Did you have a dental problem in the last 6 months where you did not have access to dental care?: No Was dental information given to patient?: No HPI 3 Month F/U g[facility] 02/01 HPI Details Patient comes in today for follow-up visit States that she has been sick with increased cough and congestion and sore throat for the past couple of days states that her symptoms have gotten a lot worse since last night Relates (+) on and off chest tightness and congestion; states that she has been coughing up thick whitish to yellowish phlegm at times She denies any fever, headaches or dizziness Denies any exertional chest pains but states that her chest feels tight and congested often with (+) OCHOA lately No nausea/vomiting, no abdominal pain No change in bowel habits noted States that her chronic low back pain and joint pains are adequately controlled on her current medications and she does not need any prescriptions refilled at this time She also has no recent follow-up labs done [facility] Medical History Allergic rhinitis Vitamin D deficiency Functional urinary incontinence Takotsubo cardiomyopathy Coronary atherosclerosis Acute kidney injury Acute respiratory failure with hypoxia and hypercapnia Acute systolic CHF (congestive heart failure) Metabolic encephalopathy Obesity (BMI 30-39.9) Smoking Depression Anxiety Insomnia Vitamin B12 deficiency Impaired fasting glucose GERD without esophagitis Pure hypercholesterolemia Fibromyalgia Lumbar degenerative disc disease Asthma Surgical History No pertinent past surgical history Family History Father Medical history unknown Mother Diabetes Hypertension CVD (cardiovascular disease) Stroke Other Mental health problem Social History Housing: House Alcohol intake: never Patient Tobacco Use Status: Current everyday Tobacco user Tobacco use type: Cigarette Cigarettes Per Day: 5 e-Cigarette/Vaping Use: Never Used Second Hand Smoke Exposure: Yes service: No Current occupational status: disabled Cognitive needs: No Hearing needs: No Vision needs: Yes Questionnaire PHQ-9 Over the last 2 weeks, how often have you been bothered by any of the following problems? 1. Little interest or pleasure in doing things: nearly every day 2. Feeling down, depressed, or hopeless: nearly every day 3. Trouble falling or staying asleep, or sleeping too much: nearly every day 4. Feeling tired or having little energy: nearly every day 5. Poor appetite or overeating: several days 6. Feeling bad about yourself - or that you are a failure or have let yourself or your family down: not at all 7. Trouble concentrating on things, such as reading the newspaper or watching television: several days 8. Moving or speaking so slowly that other people could have noticed. Or the opposite - being so fidgety or restless that you have been moving around a lot more than usual: not at all 9. Thoughts that you would be better off or of hurting yourself in some way: not at all Total score: 14 Depression Screening Interpretation: Positive Depression Screening Follow-up: Existing condition and In treatment Depression Screening Done: Yes 45469 - PHQ-9 Billing: Yes Source: Developed by Drs. Jose Chan, Shana Castro, Edison Lang and colleagues, with an educational shruthi from [employer]. Thrive Questionnaire Date Thrive assessed: 04/13/24 I am a: Patient What is your living situation today?: I have a steady place to live Within the past 12 months, did the food you bought not last and you didn't have the money to get more?: Never true Within the past 12 months, did you worry whether your food would run out before you got money to buy more?: Never true Do you have trouble paying for medicines?: No Do you have trouble getting transportation to medical appointments?: No Do you have trouble paying your heating and electricity bill?: No Do you have trouble taking care of your child, family member or friend?: No Do you have trouble with day-to-day activities such as bathing, preparing meals, shopping, managing finances, etc.?: No Are you currently unemployed and looking for a job?: No Are you interested in more education?: No Please select the resources that you would like help with: None Currently or been in a relationship where the following occur: No concerns reported THRIVE Score: 0 AUDIT C Alcohol Use Questionnaire (AUDIT-C) 1. How often do you have a drink containing alcohol?: Never 3. How often do you have six or more drinks on one occasion?: Never Total Score: 0 Score Reviewed/Action Taken: Yes NIKOS-7 AMB Questionnaire NIKOS-7 Date NIKOS - 7 assessed: 04/13/24 Feeling nervous, anxious, or on edge: 0 = Not at all Not being able to stop or control worryin = Not at all Worrying too much about different things: 0 = Not at all Trouble relaxin = Not at all Being so restless that it is hard to sit still: 0 = Not at all Becoming easily annoyed or irritable: 0 = Not at all Feeling afraid as if something awful might happen: 0 = Not at all Total NIKOS-7 score (0-4 normal; 5-9 mild; 10-14 moderate; 15-21 severe): 0 Source: Developed by Drs. Jose Chan, Shana Castro, Edison Lang and colleagues, with an educational shruthi from [employer]. Review of Systems Const Denies chills, Reports fatigue, Denies fever(s) and Denies headache(s) ENT Denies dysphagia, Denies dizziness, Denies otalgia, Denies headache(s), Reports nasal congestion, Reports neck pain (chronic), Denies odynophagia and Reports sore throat Card Denies chest pain, Denies palpitations and Reports dyspnea on exertion Resp Reports chest congestion (chest feels tight at times), Reports cough (coughs up some thick whitish to yellowish phlegm), Reports dyspnea on exertion and Reports wheezing (at times) GI Denies abdominal pain, Denies constipation, Denies dysphagia, Denies heartburn, Denies diarrhea, Denies nausea, Denies odynophagia and Denies vomiting Denies nocturia, Denies dysuria, Reports urinary incontinence (at times) and Denies urinary urgency Musc Reports back pain (over the lumbar spine - chronic), Reports arthralgias (over the left knee and left ankle) and Reports neck pain (chronic) Skin/Breast Details: (+) wounds on the right lower leg, which is currently bandaged - states that her wounds are healing well Denies rash Neuro Denies dizziness and Denies headache(s) Endo Reports fatigue and Denies palpitations Aller/Immun Reports wheezing (at times) Physical exam (Primary Care) Vital Signs: Last Vital Signs Pulse 70 04/13/24 13:20 BP 110/66 04/13/24 13:20 Pulse Ox 91 L 04/13/24 13:20 Oxygen Delivery Method Room Air 04/13/24 13:20 Tobacco/Smoking Status: Tobacco use Status Tobacco use date assessed 04/13/24 04/13/24 13:24 Patient Tobacco Use Status Current everyday Tobacco 04/13/24 13:24 Tobacco use type Cigarette 04/13/24 13:24 e-Cigarette/Vaping Use Never Used 04/13/24 13:24 PHQ-9: PHQ-9 Score PHQ-9: Total score 14 04/13/24 14:02 Depression Screening Interpretation: Positive Depression Screening Follow-up: Existing condition and In treatment Thrive Assessment: Date of Thrive Assessment Date Thrive assessed 04/13/24 04/13/24 13:24 Currently or been in a relationship where the following occur: No concerns reported Const General: no acute distress and alert Limitations: wheelchair HENMT Ears: TM's normal bilaterally and EAC's normal Throat: Yes tonsils normal (no TP congestion) and Yes posterior oropharynx abnormal (increased erythema of the posterior pharyngeal wall) Neck Neck: No lymphadenopathy Thyroid: Thyroid normal Resp Auscultation: no crackles, no rales, rhonchi (scattered) throughout, wheezes (faint) expiratory wheezes and diminished lung sounds bilateral Cardio Rate: regular rate Rhythm: regular rhythm Heart sounds: no murmurs GI Palpation (GI): Soft to palpation and nontender Auscultation: normal bowel sounds General: Yes no CVA tenderness Back/Spine/Pelvis Back: no CVA tenderness Cervical Spine: Cervical spine tenderness Thoracic/Lumbar Spine: lumbar spinal tenderness Skin Other: the right lower leg is still wrapped up in bandages so unable to examine leg today - she is being followed up regularly by [facility] for wound care Rashes: no rashes Extrem Other: patient's right lower leg is presently covered up in bandages so unable to examine leg today - she is being followed up regularly by [facility] for wound care services General: Yes no clubbing, cyanosis or edema Coding Level of Care Code Est Pt Level 4 (78356) Diagnoses Respiratory tract infection J98.8 Moderate persistent asthma with exacerbation J45.41 Asthma severity: moderate Asthma persistence: persistent Wound of right lower extremity, sequela S81.801S Encounter type: sequela Atherosclerosis of [place] coronary artery of [place] heart, unspecified whether angina present I25.10 Coronary Disease-Associated Artery/Lesion type: [place] artery [place] vs. transplanted heart: [place] heart Associated angina: unspecified whether angina present Takotsubo cardiomyopathy I51.81 Pure hypercholesterolemia E78.00 Degeneration of intervertebral disc of lumbar region with discogenic back pain M51.360 Disc-related pain type: discogenic back pain only Fibromyalgia M79.7 GERD without esophagitis K21.9 Impaired fasting glucose R73.01 Allergic rhinitis, unspecified seasonality, unspecified trigger J30.9 Allergic rhinitis trigger: unspecified Allergic rhinitis seasonality: unspecified Vitamin D deficiency E55.9 Vitamin B12 deficiency E53.8 Insomnia, unspecified type G47.00 Insomnia type: unspecified Anxiety F41.9 Depression, unspecified depression type F32.9 Depression Type: unspecified Smoking F17.200 Obesity (BMI 30-39.9) E66.9 Additional Codes PHQ-9 - 89062 - PHQ-9 Billing: Yes ([id number]) Assessment & Plan Assessment & Plan (1) Respiratory tract infection: Code(s): J98.8 - Other specified respiratory disorders Category: Medical Plan: Will send patient to the lab to have her viral respiratory panel checked, she likely has either influenza, RSV or COVID based on her symptoms Advised patient that appropriate treatment and recommendations will follow once we have the results of her viral panel (2) Asthma exacerbation: Code(s): J45.901 - Unspecified asthma with (acute) exacerbation Category: Medical Qualifiers: Asthma severity: moderate Asthma persistence: persistent Qualified Code(s): J45.41 - Moderate persistent asthma with (acute) exacerbation Plan: Continue Spiriva Respimat 2.5 mcg 2 puffs once a day, Ventolin HFA 2 puffs 4 times a day as needed and Montelukast 10 mg QD Continue nebulization Tx with Duoneb up to 4 times a day as needed Will consider starting her on prednisone taper only if her symptoms do not respond with conventional treatments (3) Wound of right lower extremity: Code(s): S81.801A - Unspecified open wound, right lower leg, initial encounter Category: Medical Qualifiers: Encounter type: sequela Qualified Code(s): S81.801S - Unspecified open wound, right lower leg, sequela Plan: Patient first sustained this injury when she accidentally cut herself on the edge of a hotel bed frame back in October 2022 Her right lower leg wound was initially sutured in the ER but failed to close by primary healing; sutures were removed a couple of weeks later and her right leg wound has persisted and has not completely healed up or closed since She is currently being seen by [facility] for wound care services (4) Coronary atherosclerosis: Comment: Cardiac cath done in 2017 showed moderate ostial left main disease at 40-50% angiographically, moderate mid RCA disease at 60%, mild LCX disease, normal LVEDP; moderate left main and RCA disease seem unrelated to the presentation as V gram suggests mid-cavitary Takotsubo's cardiomyopathy Recommend conservative medical treatment for CAD with aspirin, statins and risk factor modification Code(s): I25.10 - Atherosclerotic heart disease of [place] coronary artery without angina pectoris Category: Medical Qualifiers: Coronary Disease-Associated Artery/Lesion type: [place] artery [place] vs. transplanted heart: [place] heart Associated angina: unspecified whether angina present Qualified Code(s): I25.10 - Atherosclerotic heart disease of [place] coronary artery without angina pectoris Plan: Continue Aspirin 81 mg QD and Metoprolol ER 100 mg QD She was started on Atorvastatin 20 mg QD by cardiology last year but she could not tolerate the medication due to side effects (myalgia) and she stopped taking it eventually Her total and LDL cholesterol levels were at 219 mg/dl and 124 mg/dl respectively when they were last checked in July 2019 and she has not been able to get these rechecked since Have instructed patient to try and get her follow up labs done CATARINA Follow-up with cardiology at [facility] as scheduled (5) Takotsubo cardiomyopathy: Comment: Echocardiogram done showed reduced ejection fraction of 25-35% with regional wall motion abnormalities Code(s): I51.81 - Takotsubo syndrome Category: Medical Plan: Patient currently appears compensated based on her current symptoms; they have improved with IV diuresis in the past Reinforced fluid restriction Continue Furosemide 20 mg BID, Lisinopril 20 mg QD and Metoprolol ER 100 mg QD Repeat echocardiogram done last year on 04/30/2023 revealed (+) normal LV ejection fraction at 55-60%, with grade 1 diastolic dysfunction; normal cardiac valvular Dopplers, normal RV systolic pressure and upper limits of normal ascending aortic size at 3.6 cm; there are NO pericardial effusion Follow up with cardiology as scheduled (6) Pure hypercholesterolemia: Code(s): E78.00 - Pure hypercholesterolemia, unspecified Category: Medical Plan: Reinforced low cholesterol diet She stopped taking Atorvastatin 20 mg QD several months ago due to side effects (myalgia) Her total and LDL cholesterol levels were at 219 mg/dl and 124 mg/dl respectively when they were last checked over 4 years ago in July 2019 Will have her go and recheck her labs and fasting lipids CATARINA for follow-up (7) Lumbar degenerative disc disease: Code(s): M51.36 - Other intervertebral disc degeneration, lumbar region Category: Medical Qualifiers: Disc-related pain type: discogenic back pain only Qualified Code(s): M51.360 - Other intervertebral disc degeneration, lumbar region with discogenic back pain only Plan: Reinforced activity and weight-lifting restrictions Continue Morphine ER 60 mg q 8 hours PRN, Morphine IR 15 mg QID PRN and Carisoprodol 350 mg QID PRN (8) Fibromyalgia: Code(s): M79.7 - Fibromyalgia Category: Medical Plan: Reinforced regular exercise (as tolerated) and increased physical activity to help manage her fibromyalgia symptoms better although patient's activity tolerance is very limited so this is probably not realistic and not to be expected Her previous right ankle fracture and persistent right lower leg wound also make physical activities even more challenging for her Continue Gabapentin 600 mg capsules TID (9) GERD without esophagitis: Code(s): K21.9 - Gastro-esophageal reflux disease without esophagitis Category: Medical Plan: Dietary restrictions reinforced Continue Famotidine 20 mg BID PRN (10) Impaired fasting glucose: Code(s): R73.01 - Impaired fasting glucose Category: Medical Plan: Reinforced low calorie diet/exercise as tolerated Her HgbA1c was normal at 5.3% when last checked in 2019, and her FBS have been normal when checked over the past few years (11) Allergic rhinitis: Code(s): J30.9 - Allergic rhinitis, unspecified Category: Medical Qualifiers: Allergic rhinitis trigger: unspecified Allergic rhinitis seasonality: unspecified Qualified Code(s): J30.9 - Allergic rhinitis, unspecified Plan: Continue Cetirizine 10 mg QD PRN (12) Vitamin D deficiency: Code(s): E55.9 - Vitamin D deficiency, unspecified Category: Medical Plan: Continue Vitamin D3 2000 units QD (13) Vitamin B12 deficiency: Code(s): E53.8 - Deficiency of other specified B group vitamins Category: Medical Plan: Continue Vitamin B12 tablets 1000 mcg QD (14) Insomnia: Code(s): G47.00 - Insomnia, unspecified Category: Medical Qualifiers: Insomnia type: unspecified Qualified Code(s): G47.00 - Insomnia, unspecified Plan: Sleep hygiene reinforced - states that Clonazepam helps with her sleep at night (15) Anxiety: Code(s): F41.9 - Anxiety disorder, unspecified Category: Medical Plan: Continue Clonazepam 1 mg BID PRN (16) Depression: Code(s): F32.9 - Major depressive disorder, single episode, unspecified Category: Medical Qualifiers: Depression Type: unspecified Qualified Code(s): F32.9 - Major depressive disorder, single episode, unspecified Plan: Continue Citalopram 20 mg QD (17) Smoking: Code(s): F17.200 - Nicotine dependence, unspecified, uncomplicated Category: Social Hx Plan: Patient is again counseled on smoking cessation (18) Obesity (BMI 30-39.9): Code(s): E66.9 - Obesity, unspecified Category: Medical Plan: Reinforced diet; exercise and weight loss are unrealistic given patient's physical issues and comorbidities Plan Follow up in 3 months Orders: Orders SARS-CoV2/FLU/RSV 04/14/24 J98.8 - Other specified respiratory disorders Lipid Panel 04/14/24 E78.00 - Pure hypercholesterolemia, unspecified UA CC w/rflx Micro + Cult 04/14/24 R30.0 - Dysuria Vitamin D 25-OH Total 04/14/24 E55.9 - Vitamin D deficiency, unspecified Vitamin B12 and Folate 04/14/24 E53.8 - Deficiency of other specified B group vitamins Hemoglobin A1c 04/14/24 R73.01 - Impaired fasting glucose Complete Blood Count Auto Diff 04/14/24 D64.9 - Anemia, unspecified Comprehensive [place]. Panel Fast 04/14/24 E78.00 - Pure hypercholesterolemia, unspecified TSH reflex Free T4 04/14/24 E78.00 - Pure hypercholesterolemia, unspecified B Type Natriuretic Peptide 04/14/24 I50.9 - Heart failure, unspecified
[2024-04-13 13:20] VITALS: BP 110/66; PULSE 70; O2SAT 91
--- OUTSIDE RECORDS SUMMARY | 2024-04-13 13:34 | XMS_ITS | Clinical Summary ---
Author Organization [employer] Address [address] [place] [address] [address] [place] [address] Care Team Providers Care Small Engine Mechanic Name Role Phone Hector Paige MD Primary [...] 09/26/2024 3:30 PM EDT Office Visit Le[facility] [address] [place] [address] Glenda Andrew, OD [address] [place] [address] Health Maintenance Due Date Last Done Comments CT Colonography 1962 Colonoscopy 1962 Colorectal Cancer Screening 1962 Depression Screening 1962 FIT DNA/Cologuard 1962 FIT 1962 FOBT 1962 HIV Screening 1962 Lipid Panel 1962 SDOH Screening 1962 Sigmoidoscopy 1962 Alcohol/Substance Use Screening 1974 Hepatitis C Screening 1980 Pneumococcal Vaccine: 50+ Years (1 of 2 - PCV) 1981 Pap Smear 11/26/1983 Cervical Cancer Screening 1992 [...] patient's age to complete this topic [facility] ST[facility] Care Teams Small Engine Mechanic Relationship Specialty Start Date End Date Hector Paige MD [address] [place] [address] Drive [address] [place] [id number] PCP - General Internal Medicine 09/24/23
== END 2024-04-13 14:12 | disposition home or self-care (01) ==
PROVIDERS: PCP Internal Medicine; Visit Provider Internal Medicine
DX: J45.41 Moderate persistent asthma with (acute) exacerbation (principal); S81.801S Unspecified open wound, right lower leg, sequela; I25.10 Atherosclerotic heart disease of native coronary artery without angina pectoris; E66.9 Obesity, unspecified; I51.81 Takotsubo syndrome; E78.00 Pure hypercholesterolemia, unspecified; M51.360 Other intervertebral disc degeneration, lumbar region with discogenic back pain only; M79.7 Fibromyalgia; K21.9 Gastro-esophageal reflux disease without esophagitis; R73.01 Impaired fasting glucose; J30.9 Allergic rhinitis, unspecified

== ENCOUNTER → 2024-04-13 13:15 | Outpatient (BNVA) | payer OTHER, SELFPAY | PROVIDERS: PCP Internal Medicine; Visit Provider Internal Medicine | DX: J98.8 Other specified respiratory disorders (principal); J45.41 Moderate persistent asthma with (acute) exacerbation; S81.801S Unspecified open wound, right lower leg, sequela; I25.10 Atherosclerotic heart disease of native coronary artery without angina pectoris; I51.81 Takotsubo syndrome; E78.00 Pure hypercholesterolemia, unspecified; R73.01 Impaired fasting glucose; J30.9 Allergic rhinitis, unspecified; F41.9 Anxiety disorder, unspecified; F32.9 Major depressive disorder, single episode, unspecified; F17.200 Nicotine dependence, unspecified, uncomplicated; Z71.6 Tobacco abuse counseling | CPT/HCPCS: 96127; 99212 ==

== ENCOUNTER 2024-04-14 15:15 | Outpatient (REF) | payer OTHER, SELFPAY ==
[2024-04-14 15:51] LABS: MANUAL DIFF FLAG NO
--- OUTSIDE RECORDS SUMMARY | 2024-04-14 16:18 | XMS_ITS | Clinical Summary ---
Author Organization [employer] Address [address] [place] [address] [address] [place] [address] Care Team Providers Care Mock Up Maker Name Role Phone Hector Paige MD Primary [...] 09/26/2024 3:30 PM EDT Office Visit Leena [facility] [address] [place] [address] Glenda Andrew, OD [address] [place] [address] Health Maintenance Due Date Last Done Comments [...] patient's age to complete this topic Insurance [facility] ST[facility] Care Teams Mock Up Maker Relationship Specialty Start Date End Date Hector Paige MD [address] [place] [address] Drive [address] [place] [id number] PCP - General Internal Medicine 09/24/23
[2024-04-14 16:24] LABS: Basophils Percent Auto 0.7 % (0-2); Eosinophils Percent Auto 0.2 % (0-4); Hematocrit 31.6 % (37.0-47.0); Hemoglobin 10.7 g/dl (12.0-16.0); Imm Gran Abs Auto 0.01 X10*3/uL (0.00-0.03); Imm Gran Pct Auto 0.2 % (0.0-0.4); Lymphocytes Percent Auto 45.9 % (20-40); Mean Corpuscular HGB Conc 33.9 g/dl (31.0-35.0); Mean Corpuscular Hemoglobin 30.7 pg (27.0-33.0); Mean Corpuscular Volume 90.8 fL (80.0-98.0); Mean Platelet Volume 9.1 fL (9.4-12.3); Monocytes Absolute Auto 0.5 X10*3/uL (0.1-1.2); Monocytes Percent Auto 11.1 % (2-11); Neutrophils Absolute Auto 1.9 x10*3/uL (2.0-8.3); Neutrophils Percent Auto 41.9 % (45-73); Platelet Count 243 X10*3/uL (160-400); Red Blood Count 3.48 X10*6/uL (4.20-5.50); Red Cell Distribution Width 11.8 % (11.0-16.0); White Blood Count 4.4 X10*3/uL (4.8-10.8)
[2024-04-14 16:30] LABS: Influenza A PCR POSITIVE (Negative); Influenza B PCR NEGATIVE (Negative); Resp Syncy Virus RNA Qual PCR NEGATIVE (Negative); SARS COV2 PCR INHOUSE NEGATIVE (Negative)
[2024-04-14 16:30] LABS: Estimated Average Glucose 105 mg/dL; Hemoglobin A1C 98.8117 umol/L; Hemoglobin A1c % 5.3 % (<6.0); Total Hemoglobin (HGBA1C) 2831.2242 umol/L
[2024-04-14 16:42] LABS: B Type Natriuretic Peptide 61 pg/mL (<100)
[2024-04-14 17:11] LABS: Alanine Aminotransferase 9 U/L (0-31); Albumin Level 3.4 g/dL (3.5-5.0); Alkaline Phosphatase 99 U/L (39-117); Anion Gap 14 (12-20); Aspartate Amino Transferase 19 U/L (5-31); Bilirubin Total 0.2 mg/dL (0.0-1.0); Blood Urea Nitrogen 10 mg/dL (9-16); Carbon Dioxide 26 mmol/L (22-29); Chloride 95 mmol/L (96-108); Cholesterol 154 mg/dL (<200); Estimated Glomerular Filt Rate > 60; Glucose Fasting 94 mg/dL (60-99); HDL Cholesterol 30 mg/dL (>40); LDL Cholesterol Calculated 103 mg/dL (<100); Potassium 4.7 mmol/L (3.3-5.1); Sodium 130 mmol/L (135-145); Total Protein 7.3 g/dL (6.5-8.0); Triglycerides 108 mg/dL (<150)
[2024-04-14 17:30] LABS: TSH reflex Free T4 0.32 uIU/mL (0.32-4.0); Vitamin D 25-OH Total 47.1 ng/mL (>30)
[2024-04-14 18:22] LABS: Folate > 20.0 ng/mL (> or = 4.0); Vitamin B12 > 2000 pg/mL (200-900)
== END 2024-04-14 15:16 | disposition home or self-care (01) ==
LOC: HO.LAB 15:15
PROVIDERS: PCP Internal Medicine; Visit Provider Internal Medicine
DX: I50.9 Heart failure, unspecified (principal); E78.00 Pure hypercholesterolemia, unspecified; D64.9 Anemia, unspecified; R73.01 Impaired fasting glucose; J98.8 Other specified respiratory disorders; E55.9 Vitamin D deficiency, unspecified; E53.8 Deficiency of other specified B group vitamins
CPT/HCPCS: 0241U; 80053; 80061; 82306; 82607; 82746; 83036; 83880; 84443; 85025

== ENCOUNTER 2024-04-21 15:09 | Outpatient (AMB) | payer OTHER, SELFPAY ==
--- NOTE | 2024-04-21 15:11 | MHC.OFFVIS ---
Vital Signs 04/21/24 15:11 Height 5 ft 7 in Intake Visit Reasons: Follow up arterial US Intake Note: 3 mo follow up arterial US 03/18/24 w/ hx of Right angio 12/30/23. Pt states that they were going to woundcare but unhappy with the care, started to do basic care of the wound and states its starting to heal. Changes daily. Accompanied by: Family/Other Allergies levofloxacin Allergy (Severe, Verified 04/21/24 15:22) throat swelling cephalexin [Keflex] Allergy (Unknown, Verified 04/21/24 15:22) Unknown ciprofloxacin Allergy (Unknown, Verified 04/21/24 15:22) Unknown codeine Allergy (Unknown, Verified 04/21/24 15:22) codeine phosphate- unknown doxycycline Allergy (Unknown, Verified 04/21/24 15:22) pruritic rash duloxetine [Cymbalta] Allergy (Unknown, Verified 04/21/24 15:22) swelling of throat and tongue NSAIDS (Non-Steroidal Anti-Inflamma Allergy (Unknown, Verified 04/21/24 15:22) Unknown penicillin V Allergy (Unknown, Verified 04/21/24 15:22) Unknown prednisone Allergy (Unknown, Verified 04/21/24 15:22) Unknown Sulfa (Sulfonamide Antibiotics) Allergy (Unknown, Verified 04/21/24 15:22) Unknown theophylline Allergy (Unknown, Verified 04/21/24 15:22) Unknown latex Allergy (Verified 04/21/24 15:22) Hives clarithromycin Adverse Reaction (Unknown, Verified 04/21/24 15:22) Unknown insect sting Allergy (Unknown, Uncoded 04/21/24 15:22) anaphylaxis HPI HPI Follow up arterial US: Details: Glo, a pleasant 63 yo female patient, is presenting today with her daughter and for follow up to an arterial duplex US, performed on 03/18/24. She [facility] with [facility]; however, the daughter states that they are not happy there and she has been doing her own wound care treatments at home for her mother. She does continue to endorse bilateral lower extremity pain. She has no new concerns today. [facility] Medical History Allergic rhinitis Vitamin D deficiency Functional urinary incontinence Takotsubo cardiomyopathy Coronary atherosclerosis Acute kidney injury Acute respiratory failure with hypoxia and hypercapnia Acute systolic CHF (congestive heart failure) Metabolic encephalopathy Obesity (BMI 30-39.9) Smoking Depression Anxiety Insomnia Vitamin B12 deficiency Impaired fasting glucose GERD without esophagitis Pure hypercholesterolemia Fibromyalgia Lumbar degenerative disc disease Asthma Surgical History No pertinent past surgical history Family History Father Medical history unknown Mother Diabetes Hypertension CVD (cardiovascular disease) Stroke Other Mental health problem Social History Housing: House Alcohol intake: never Patient Tobacco Use Status: Current everyday Tobacco user Tobacco use type: Cigarette Cigarettes Per Day: 5 e-Cigarette/Vaping Use: Never Used Second Hand Smoke Exposure: Yes service: No Current occupational status: disabled Cognitive needs: No Hearing needs: No Vision needs: Yes Review of Systems Const Reports as per HPI and Denies weakness ENT Reports Normal hearing present and Denies dizziness Card Reports as per HPI, Denies chest pain, Denies chest pain at rest, Denies chest pain with activity, Denies dyspnea and Denies dyspnea on exertion Resp Reports as per HPI, Denies cough, Denies dyspnea and Denies dyspnea on exertion GI Reports as per HPI, Denies abdominal pain, Denies nausea and Denies vomiting Musc Denies numbness Skin/Breast Reports as per HPI, Denies erythema and Denies wounds Neuro Reports Normal hearing present, Denies dizziness, Denies numbness, Denies Sensory deficit (Neuro) and Denies weakness Psych Reports no additional complaints Endo Reports no additional complaints Physical Exam Const General: healthy appearing and no acute distress Orientation/consciousness: patient oriented x3 HEENT Head: Yes normal to inspection Ears: hearing grossly normal bilaterally Mouth: Normal oral and palatal mucosa present Resp Effort & Inspection: normal respiratory effort and able to speak in complete sentences Auscultation: clear to auscultation bilaterally Cardio Jugular venous distension: no JVD Rate: regular rate Rhythm: regular rhythm Heart sounds: S1 normal heart sound present and S2 normal heart sound present Bruits: no abdominal aortic bruits, no carotid bruits, no femoral bruits and no renal bruits Peripheral pulses: Peripheral pulses 2+ throughout GI Inspection: Yes normal to inspection Palpation (GI): No Abdominal aortic bruit present Skin General skin exam: no rashes or lesions noted Wounds: no wounds Hair: normal Neuro General: patient oriented x3 Cranial nerves: Yes Normal hearing present Cognition (Neuro): normal cognition Gait exam (Neuro): Normal gait present Motor exam (neuro): 5/5 motor strength present throughout Sensory Exam: No Sensory deficit (Neuro) Extrem Other: Right lower extremity: Posterior calf wound covered with hydra blue, not taken down. Medial to anterior wound pink wound bed with rolled edges. Faint but palpable DP pulses. Left lower extremity: posterior calf wound covered with hydra blue, not taken down. Anterior wound pink wound bed with rolled edges. Faint but palpable DP pulses. General: Yes normal to inspection, Yes full ROM, Yes capillary refill normal and Yes normal gait Results Reviewed Results Reviewed: Bilateral lower extremity Arterial Duplex US with ABIs: Right DEANNE: 1.08 Left DEANNE: 1.0 Improved from 04/20/23 with readings of Right at 0.85? and left 0.86 Impression: severe inflow dx of bilateral lower extremities from the common femoral arteries to the posterior tibial arteries. Impression from 04/20/23 - Right:diffuse monophasic waveforms throughout the RLE indicating a more proximal aortoiliac inflow disease. There is patent flow through the femoral, popliteal, and runoff vessels. Left: diffuse monophasic waveforms throughout the LLE indicating a more proximal aortoiliac inflow disease. There is patent flow through the femoral, popliteal, and runoff vessels. Assessment & Plan Assessment & Plan (1) PAD (peripheral artery disease): Comment: 12/30/2023 - right external iliac stents Code(s): I73.9 - Peripheral vascular disease, unspecified Category: Medical Plan: Glo is presenting today for a follow up to arterial duplex US, performed on 03/18/24. She continues with the [facility] for ongoing bilateral lower extremity wounds; we discussed the importance for continued care/wound care. We reviewed the US results, which showed improved ABIs with concerns of inflow disease bilaterally. We will have her follow up with us in 6m with a repeat arterial duplex US. We encouraged her to continue with the Wound Care Clinic. We discussed the importance of a healthy, well balanced diet and physical activity as tolerated. Thank you for allowing us to participate in the patient's care. If there are any questions or concerns, please do not hesitate to reach out to us. Orders: Orders US arterial duplex LE BI 6 Months I73.9 - Peripheral vascular disease, unspecified Coding Level of Care Code Est Pt Level 4 (92583) Diagnoses PAD (peripheral artery disease) I73.9
--- OUTSIDE RECORDS SUMMARY | 2024-04-21 18:29 | XMS_ITS | Clinical Summary ---
Author Organization [employer] Address [address] [place] [address] [address] [place] [address] Care Team Providers Care Human Factors Specialist Name Role Phone Hector Paige MD Primary [...] 09/26/2024 3:30 PM EDT Office Visit Leena [facility] [address] [place] [address] Glenda Andrew, OD [address] [place] [address] Health Maintenance Due Date Last Done Comments [...] patient's age to complete this topic Insurance [facility] Care Teams Human Factors Specialist Relationship Specialty Start Date End Date Hector Paige MD [address] [place] [address] [address] [place] [phone] PCP - General Internal Medicine 09/24/23
== END 2024-04-21 16:09 | disposition home or self-care (01) ==
PROVIDERS: PCP Internal Medicine; Visit Provider Physician Assistant Surgical
DX: I73.9 Peripheral vascular disease, unspecified (principal)
CPT/HCPCS: 99214

== ENCOUNTER → 2024-04-21 15:09 | Outpatient (BNVA) | payer OTHER, SELFPAY | PROVIDERS: PCP Internal Medicine; Visit Provider Physician Assistant Surgical | DX: I73.9 Peripheral vascular disease, unspecified (principal) | CPT/HCPCS: 99212 ==

== ENCOUNTER 2024-06-23 14:27 | Outpatient (AMB) | payer OTHER, SELFPAY ==
--- NOTE | 2024-06-23 14:31 | A.OFFVIS_ITS ---
Vital Signs 06/23/24 14:31 Height 5 ft 7 in Intake Visit Reasons: Add-on wound concern Intake Note: follow up for bilateral LE non-healing wounds, has heavy drainage and lymphorrea. Pt has woundcare appt tomw and was last seen over a month ago. Has issues obtaining supplies. Was doing wet to dry dressing, but was making worse. Pt is now using dry dressing due to amount of drainage. Fiber Glass Worker Required: No Accompanied by: Family/Other Allergies levofloxacin Allergy (Severe, Verified 06/23/24 14:42) throat swelling cephalexin [Keflex] Allergy (Unknown, Verified 06/23/24 14:42) Unknown ciprofloxacin Allergy (Unknown, Verified 06/23/24 14:42) Unknown codeine Allergy (Unknown, Verified 06/23/24 14:42) codeine phosphate- unknown doxycycline Allergy (Unknown, Verified 06/23/24 14:42) pruritic rash duloxetine [Cymbalta] Allergy (Unknown, Verified 06/23/24 14:42) swelling of throat and tongue NSAIDS (Non-Steroidal Anti-Inflamma Allergy (Unknown, Verified 06/23/24 14:42) Unknown penicillin V Allergy (Unknown, Verified 06/23/24 14:42) Unknown prednisone Allergy (Unknown, Verified 06/23/24 14:42) Unknown Sulfa (Sulfonamide Antibiotics) Allergy (Unknown, Verified 06/23/24 14:42) Unknown theophylline Allergy (Unknown, Verified 06/23/24 14:42) Unknown latex Allergy (Verified 06/23/24 14:42) Hives clarithromycin Adverse Reaction (Unknown, Verified 06/23/24 14:42) Unknown insect sting Allergy (Unknown, Uncoded 06/23/24 14:42) anaphylaxis HPI HPI Add-on wound concern: Details: Glo is presenting today with her family for ongoing concerns of her wounds. She states she was supposed to have an appt with the [facility] 2w ago for a follow up and it got canceled. Her daughter states they have run out of supplies and the [facility] Care Clinic has not been helping them obtain the correct supplies for adequate wound care. The daughter states they have been using maxi pads to use for absorbancy. The pt states the wound has gotten significantly more painful with increased drainage. They state that the left lower extremity wound has been healing well but the right posterior/medial wound is getting worse. She denies fever, chills, and body aches. [facility] Medical History Allergic rhinitis Vitamin D deficiency Functional urinary incontinence Takotsubo cardiomyopathy Coronary atherosclerosis Acute kidney injury Acute respiratory failure with hypoxia and hypercapnia Acute systolic CHF (congestive heart failure) Metabolic encephalopathy Obesity (BMI 30-39.9) Smoking Depression Anxiety Insomnia Vitamin B12 deficiency Impaired fasting glucose GERD without esophagitis Pure hypercholesterolemia Fibromyalgia Lumbar degenerative disc disease Asthma Surgical History No pertinent past surgical history Family History Father Medical history unknown Mother Diabetes Hypertension CVD (cardiovascular disease) Stroke Other Mental health problem Social History Housing: House Alcohol intake: never Patient Tobacco Use Status: Current everyday Tobacco user Tobacco use type: Cigarette Cigarettes Per Day: 5 e-Cigarette/Vaping Use: Never Used Second Hand Smoke Exposure: Yes service: No Current occupational status: disabled Cognitive needs: No Hearing needs: No Vision needs: Yes Review of Systems Const Reports as per HPI and Denies weakness ENT Reports Normal hearing present and Denies dizziness Card Reports as per HPI, Denies chest pain, Denies chest pain at rest, Denies chest pain with activity, Denies dyspnea and Denies dyspnea on exertion Resp Reports as per HPI, Denies cough, Denies dyspnea and Denies dyspnea on exertion GI Reports as per HPI, Denies abdominal pain, Denies nausea and Denies vomiting Musc Denies numbness Skin/Breast Reports as per HPI, Denies erythema and Denies wounds Neuro Reports Normal hearing present, Denies dizziness, Denies numbness, Denies Sensory deficit (Neuro) and Denies weakness Psych Reports no additional complaints Endo Reports no additional complaints Physical Exam Const General: healthy appearing and no acute distress Orientation/consciousness: patient oriented x3 HEENT Head: Yes normal to inspection Ears: hearing grossly normal bilaterally Mouth: Normal oral and palatal mucosa present Resp Effort & Inspection: normal respiratory effort and able to speak in complete sentences Auscultation: clear to auscultation bilaterally Cardio Jugular venous distension: no JVD Rate: regular rate Rhythm: regular rhythm Heart sounds: S1 normal heart sound present and S2 normal heart sound present Bruits: no abdominal aortic bruits, no carotid bruits, no femoral bruits and no renal bruits Peripheral pulses: Peripheral pulses 2+ throughout GI Inspection: Yes normal to inspection Palpation (GI): No Abdominal aortic bruit present Skin General skin exam: no rashes or lesions noted Wounds: no wounds Hair: normal Neuro General: patient oriented x3 Cranial nerves: Yes Normal hearing present Cognition (Neuro): normal cognition Gait exam (Neuro): Normal gait present Motor exam (neuro): 5/5 motor strength present throughout Sensory Exam: No Sensory deficit (Neuro) Extrem Other: Right lower extremity: Posterior/medial wound is measuring [id number] (at its deepest). Rolled wound edges. Medial aspect is deeper, at 2cm; shallow towards the lateral aspect. Increased erythema and lymphorrhea throughout the whole lower extremity, no warmth. Yellow slough noted all through the wound. No infection likely. Significant amount of serosangenous drainage noted. Left lower extremity: dressing not taken down, pt states wound is healing General: Yes normal to inspection, Yes full ROM, Yes capillary refill normal and Yes normal gait Assessment & Plan Assessment & Plan (1) PAD (peripheral artery disease): Comment: 12/30/2023 - right external iliac stents Code(s): I73.9 - Peripheral vascular disease, unspecified Category: Medical Plan: Glo is presenting today with her family for concerns of worsening right lower extremity wound. She did have an appt with the [facility] a couple of weeks ago but it was canceled. Her daughter has been changing the dressing daily, but using maxi pads; she states they ran out of supplies and are unable to buy them. She does have an appt with the [facility] tomorrow. I discussed with her the importance of keeping those appts when they come up. We applied a foam dressing with kerlix wrap and joanna bandage. We discussed that the foam dressing can be changed every couple of days, if there is not a lot of drainage. I discussed with her that if the [facility] Care Clinic cancels on her again, they can make a follow up appt with us in 2w for wound care. We discussed the importance of daily dressing changes; we were able to supply them with some but are unable to order what they will need, they will have to get them through the Wound Care Clinic. We will follow up as needed. Thank you for allowing us to participate in the patient's care. If there are any questions or concerns, please do not hesitate to reach out to us. Coding Level of Care Code Est Pt Level 4 (31639) Diagnoses PAD (peripheral artery disease) I73.9
--- OUTSIDE RECORDS SUMMARY | 2024-06-23 16:31 | XMS_ITS | Clinical Summary ---
Author Organization [employer] Address [address] [place] [address] [address] [place] [address] Care Team Providers Care Welfare Administrator Name Role Phone Hector Paige MD Primary [...] 09/26/2024 3:30 PM EDT Office Visit Leena [facility]OM[facility] [address] [place] [address] Glenda Andrew, OD [address] [place] [address] Health Maintenance Due Date Last Done Comments [...] patient's age to complete this topic [facility] STAND[facility] Care Teams Welfare Administrator Relationship Specialty Start Date End Date Hector Paige MD [address] [place] [address] [address] [place] [phone] PCP - General Internal Medicine 09/24/23
== END 2024-06-23 15:12 | disposition home or self-care (01) ==
LOC: HO.HVS 14:28
PROVIDERS: PCP Internal Medicine; Visit Provider Physician Assistant Surgical
DX: I73.9 Peripheral vascular disease, unspecified (principal)
CPT/HCPCS: 99214

== ENCOUNTER → 2024-06-23 14:27 | Outpatient (BNVA) | payer OTHER, SELFPAY | PROVIDERS: PCP Internal Medicine; Visit Provider Physician Assistant Surgical | DX: I73.9 Peripheral vascular disease, unspecified (principal); I89.8 Other specified noninfective disorders of lymphatic vessels and lymph nodes; S81.802A Unspecified open wound, left lower leg, initial encounter; S81.801A Unspecified open wound, right lower leg, initial encounter; X58.XXXA Exposure to other specified factors, initial encounter; Y93.9 Activity, unspecified; Y92.9 Unspecified place or not applicable; Y99.9 Unspecified external cause status | CPT/HCPCS: 99212 ==

== ENCOUNTER 2024-07-13 14:30 | Outpatient (AMB) | payer OTHER, SELFPAY ==
[2024-07-13 14:32] VITALS: BP 110/62; PULSE 92; O2SAT 93
--- NOTE | 2024-07-13 14:32 | MHC.PC.OV ---
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 Layer Required: No Accompanied by: Self / Same As Patient Allergies levofloxacin Allergy (Severe, Verified 07/13/24 15:00) throat swelling cephalexin [Keflex] Allergy (Unknown, Verified 07/13/24 15:00) Unknown ciprofloxacin Allergy (Unknown, Verified 07/13/24 15:00) Unknown codeine Allergy (Unknown, Verified 07/13/24 15:00) codeine phosphate- unknown doxycycline Allergy (Unknown, Verified 07/13/24 15:00) pruritic rash duloxetine [Cymbalta] Allergy (Unknown, Verified 07/13/24 15:00) swelling of throat and tongue NSAIDS (Non-Steroidal Anti-Inflamma Allergy (Unknown, Verified 07/13/24 15:00) Unknown penicillin V Allergy (Unknown, Verified 07/13/24 15:00) Unknown prednisone Allergy (Unknown, Verified 07/13/24 15:00) Unknown Sulfa (Sulfonamide Antibiotics) Allergy (Unknown, Verified 07/13/24 15:00) Unknown theophylline Allergy (Unknown, Verified 07/13/24 15:00) Unknown latex Allergy (Verified 07/13/24 15:00) Hives clarithromycin Adverse Reaction (Unknown, Verified 07/13/24 15:00) Unknown insect sting Allergy (Unknown, Uncoded 07/13/24 15:00) anaphylaxis Medication List - Last Reconciled 07/13/24 by Hector Paige MD [6 inch sitting cushion pad (for wheelchair) As directed] adhesive bandage (Bandages) multiple different sizes adhesive tape As directed aspirin 81 mg PO DAILY 90 days benzonatate 200 mg PO BID-TID PRN [BODY HEATING PAD As directed] carisoprodol 350 mg PO QID PRN 28 days cetirizine 10 mg PO DAILY chair, wheel (Wheel chair) As directed cholecalciferol (vitamin D3) 50 mcg PO DAILY citalopram 20 mg PO DAILY clonazepam 1 mg PO BID PRN clopidogrel (Plavix) 75 mg PO DAILY collagenase clostridium histo. (Santyl) 1 appl topical DAILY cyanocobalamin (vitamin B-12) 1,000 mcg PO DAILY diphenhydramine HCl 25 mg PO TID PRN [Disposable bed pads 6 per day As directed] disposable gloves As directed size large Donut pillow As directed elastic bandage (Medigrip Tubular bandage) As directed epinephrine (EpiPen 2-Jonathon) 0.3 mg (0.3 mL) IM ONCE famotidine 20 mg PO BID folic acid 1 mg PO DAILY furosemide 20 mg PO BID PRN gabapentin 600 mg (2 x 300 mg) PO TID 30 days gauze bandage (Band-Aid Gauze Pads) As directed ipratropium-albuterol 0.5 mg-3 mg(2.5 mg base)/3 mL 3 mL inhalation QID [light weight ezequiel lift As directed] [LIGHTWEIGHT CANE As directed] [LIGHTWEIGHT WHEELCHAIR As directed] lisinopril 20 mg PO DAILY 90 days metoprolol succinate ER 100 mg PO DAILY miscellaneous medical supply 1 ea miscellaneous DAILY miscellaneous medical supply 1 ea miscellaneous .3-5 times daily miscellaneous medical supply 1 ea miscellaneous .4-5 times miscellaneous medical supply 1 ea miscellaneous .5-6 times Daily morphine 15 mg PO QID PRN 28 days morphine ER 60 mg PO Q8H 28 days mupirocin 2% 1 appl topical TID 14 days naloxone 4 mg/actuation (Narcan) 4 mg intranasal Q2M PRN naloxone 4 mg/actuation (Narcan) 4 mg intranasal Q2M PRN [NASAL CANNULA for OXYGEN As directed] [NEBULIZER and all related supplies As directed] oseltamivir (Tamiflu) 75 mg PO BID 5 days [padded shower bench As directed] pyridoxine (vitamin B6) 50 mg PO DAILY 90 days [ROLLATOR As directed] sennosides (senna) 8.6 mg PO BID PRN silver sulfadiazine 1% (Silvadene) 1 appl topical BID silver-hydrocolloid dressing 1.2-3.5 X 14 %- (Aquacel-AG) apply to wounds on lower extremities TID topically; tiotropium bromide 2.5 mcg/actuation (Spiriva Respimat) 2 puffs inhalation QAM 30 days Transfer Bench As directed Ventolin HFA 90 mcg/actuation (albuterol sulfate) 2 puffs inhalation Q4H PRN NS walker As directed [wheelchair with adjustable legs and 3 in pad As directed] Tobacco use date assessed: 07/13/24 Dental Screening Dental Screen Date: 07/13/24 Did you have a dental visit in the last 12 months?: No Did you have a dental problem in the last 6 months where you did not have access to dental care?: No Was dental information given to patient?: No HPI 3 Month F/U HPI Details Patient comes in today for her follow-up visit States that she currently still has some open and draining wounds on both of her legs, with the one on the right leg worse than the left Both of her legs still appears significantly swollen at present, with both legs currently wrapped in pressure dressing/bandages Patient was supposed to be following up with the Wound Clinic regularly but states that her appointments with the wound clinic keeps getting canceled and rescheduled She has also reportedly been running out of her wound dressing supplies and states that the wound clinic has not been helping them get her supplies refilled on time and her daughter states that she has been using some maxi pads instead lately when her supplies for now Patient states that she is very unhappy with the wound clinic here in [place] and prefers to go somewhere else although she understands that her insurance may not allow her to do so Patient states that she feels okay otherwise She denies any fever, headaches or dizziness Denies any chest pains, no increased shortness of breath No nausea/vomiting, no abdominal pain No change in bowel habits noted States that her chronic low back pain and joint pains remain adequately controlled on her current pain medications She has no follow-up labs done recently She will need her Soma and Morphine Rx refilled today [facility] Medical History Allergic rhinitis Vitamin D deficiency Functional urinary incontinence Takotsubo cardiomyopathy Coronary atherosclerosis Acute kidney injury Acute respiratory failure with hypoxia and hypercapnia Acute systolic CHF (congestive heart failure) Metabolic encephalopathy Obesity (BMI 30-39.9) Smoking Depression Anxiety Insomnia Vitamin B12 deficiency Impaired fasting glucose GERD without esophagitis Pure hypercholesterolemia Fibromyalgia Lumbar degenerative disc disease Asthma Surgical History No pertinent past surgical history Family History Father Medical history unknown Mother Diabetes Hypertension CVD (cardiovascular disease) Stroke Other Mental health problem Social History Housing: House Alcohol intake: never Patient Tobacco Use Status: Current everyday Tobacco user Tobacco use type: Cigarette Cigarettes Per Day: 5 e-Cigarette/Vaping Use: Never Used Second Hand Smoke Exposure: Yes service: No Current occupational status: disabled Cognitive needs: No Hearing needs: No Vision needs: Yes Questionnaire PHQ-9 Over the last 2 weeks, how often have you been bothered by any of the following problems? 1. Little interest or pleasure in doing things: nearly every day 2. Feeling down, depressed, or hopeless: nearly every day 3. Trouble falling or staying asleep, or sleeping too much: nearly every day 4. Feeling tired or having little energy: nearly every day 5. Poor appetite or overeating: several days 6. Feeling bad about yourself - or that you are a failure or have let yourself or your family down: not at all 7. Trouble concentrating on things, such as reading the newspaper or watching television: several days 8. Moving or speaking so slowly that other people could have noticed. Or the opposite - being so fidgety or restless that you have been moving around a lot more than usual: not at all 9. Thoughts that you would be better off or of hurting yourself in some way: not at all Total score: 14 Depression Screening Interpretation: Positive Depression Screening Follow-up: Existing condition and In treatment Depression Screening Done: Yes 05203 - PHQ-9 Billing: Yes Source: Developed by Drs. Jose Chan, Shana Castro, Edison Lang and colleagues, with an educational shruthi from [employer]. Thrive Questionnaire Date Thrive assessed: 07/13/24 I am a: Patient What is your living situation today?: I have a steady place to live Within the past 12 months, did the food you bought not last and you didn't have the money to get more?: Never true Within the past 12 months, did you worry whether your food would run out before you got money to buy more?: Never true Do you have trouble paying for medicines?: No Do you have trouble getting transportation to medical appointments?: No Do you have trouble paying your heating and electricity bill?: No Do you have trouble taking care of your child, family member or friend?: No Do you have trouble with day-to-day activities such as bathing, preparing meals, shopping, managing finances, etc.?: No Are you currently unemployed and looking for a job?: No Are you interested in more education?: No Please select the resources that you would like help with: None Currently or been in a relationship where the following occur: No concerns reported THRIVE Score: 0 AUDIT C Alcohol Use Questionnaire (AUDIT-C) 1. How often do you have a drink containing alcohol?: Never 3. How often do you have six or more drinks on one occasion?: Never Total Score: 0 Score Reviewed/Action Taken: Yes NIKOS-7 AMB Questionnaire NIKOS-7 Date NIKOS - 7 assessed: 07/13/24 Feeling nervous, anxious, or on edge: 0 = Not at all Not being able to stop or control worryin = Not at all Worrying too much about different things: 0 = Not at all Trouble relaxin = Not at all Being so restless that it is hard to sit still: 0 = Not at all Becoming easily annoyed or irritable: 0 = Not at all Feeling afraid as if something awful might happen: 0 = Not at all Total NIKOS-7 score (0-4 normal; 5-9 mild; 10-14 moderate; 15-21 severe): 0 Source: Developed by Drs. Jose Chan, Shana Castro, Edison Lang and colleagues, with an educational shruthi from [employer]. Review of Systems Const Denies chills, Reports fatigue, Denies fever(s) and Denies headache(s) ENT Denies dysphagia, Denies dizziness, Denies otalgia, Denies headache(s), Reports neck pain (chronic), Denies odynophagia and Denies sore throat Card Denies chest pain, Denies palpitations and Reports dyspnea on exertion (mild) Resp Denies chest congestion, Reports cough (coughs up some thick whitish phlegm at times), Reports dyspnea on exertion (mild) and Denies wheezing GI Denies abdominal pain, Denies constipation, Denies dysphagia, Denies heartburn, Denies diarrhea, Denies nausea, Denies odynophagia and Denies vomiting Denies nocturia, Denies dysuria, Reports urinary incontinence (at times) and Denies urinary urgency Musc Reports back pain (over the lumbar spine - chronic), Reports arthralgias (over the left knee and left ankle) and Reports neck pain (chronic) Skin/Breast Details: (+) chronic wounds on the both lower legs, which are currently bandaged - (+) much larger ulcer on the right leg , based on pictures of the wounds shown by patient's daughter Denies rash Neuro Denies dizziness and Denies headache(s) Endo Reports fatigue and Denies palpitations Aller/Immun Denies wheezing Physical exam (Primary Care) Vital Signs: Last Vital Signs Pulse 92 07/13/24 14:32 BP 110/62 07/13/24 14:32 Pulse Ox 93 07/13/24 14:32 Oxygen Delivery Method Room Air 07/13/24 14:32 Tobacco/Smoking Status: Tobacco use Status Tobacco use date assessed 07/13/24 07/13/24 14:34 Patient Tobacco Use Status Current everyday Tobacco 07/13/24 14:34 Tobacco use type Cigarette 07/13/24 14:34 e-Cigarette/Vaping Use Never Used 07/13/24 14:34 PHQ-9: PHQ-9 Score PHQ-9: Total score 14 07/13/24 15:08 Depression Screening Interpretation: Positive Depression Screening Follow-up: Existing condition and In treatment Thrive Assessment: Date of Thrive Assessment Date Thrive assessed 07/13/24 07/13/24 14:43 Currently or been in a relationship where the following occur: No concerns reported Const General: no acute distress and alert Limitations: wheelchair HENMT Ears: TM's normal bilaterally and EAC's normal Throat: Yes posterior oropharynx normal and Yes tonsils normal (no TP congestion) Neck Neck: No lymphadenopathy Thyroid: Thyroid normal Resp Auscultation: no crackles, no rales, rhonchi (occasional) throughout, no wheezes and diminished lung sounds (slightly) bilateral Cardio Rate: regular rate Rhythm: regular rhythm Heart sounds: no murmurs GI Palpation (GI): Soft to palpation and nontender Auscultation: normal bowel sounds General: Yes no CVA tenderness Back/Spine/Pelvis Back: no CVA tenderness Cervical Spine: Cervical spine tenderness Thoracic/Lumbar Spine: lumbar spinal tenderness Skin Other: * both lower legs are wrapped up in bandages - unable to examine legs today but viewed pictures of wounds on patient's daughter's phone - the right leg ulcer appears much larger and has a slight yellowish wound discharge noted Rashes: no rashes Extrem General: Yes edema (2 to 3 + bipedal edema; both legs are completely wrapped up in bandages) Coding Level of Care Code Est Pt Level 4 (99235) Diagnoses Wound of lower extremity, unspecified laterality, sequela S81.809S Encounter type: sequela Laterality: unspecified laterality Moderate persistent asthma, unspecified whether complicated J45.40 Asthma complication type: unspecified Asthma persistence: persistent Asthma severity: moderate Atherosclerosis of [place] coronary artery of [place] heart, unspecified whether angina present I25.10 Associated angina: unspecified whether angina present Coronary Disease-Associated Artery/Lesion type: [place] artery [place] vs. transplanted heart: [place] heart Takotsubo cardiomyopathy I51.81 Pure hypercholesterolemia E78.00 Degeneration of intervertebral disc of lumbar region with discogenic back pain M51.360 Disc-related pain type: discogenic back pain only Fibromyalgia M79.7 GERD without esophagitis K21.9 Impaired fasting glucose R73.01 Allergic rhinitis, unspecified seasonality, unspecified trigger J30.9 Allergic rhinitis seasonality: unspecified Allergic rhinitis trigger: unspecified Vitamin D deficiency E55.9 Vitamin B12 deficiency E53.8 Insomnia, unspecified type G47.00 Insomnia type: unspecified Anxiety F41.9 Depression, unspecified depression type F32.9 Depression Type: unspecified Smoking F17.200 Obesity (BMI 30-39.9) E66.9 Additional Codes PHQ-9 - 86925 - PHQ-9 Billing: Yes ([id number]) Assessment & Plan Assessment & Plan (1) Wound of lower extremity: Code(s): S81.809A - Unspecified open wound, unspecified lower leg, initial encounter Category: Medical Qualifiers: Encounter type: sequela Laterality: unspecified laterality Qualified Code(s): S81.809S - Unspecified open wound, unspecified lower leg, sequela Plan: Patient first sustained the injury on her right leg when she accidentally cut herself on the edge of a hotel bed frame back in October 2022 Her right lower leg wound was initially sutured in the ER but failed to close by primary healing; sutures were removed a couple of weeks later and her right leg wound has persisted and has not completely healed up or closed since Her left leg wound seems to have mostly come up as a result of her chronically swollen legs She was going to the [facility] for her legs but states that her appointment keeps getting cancelled and rescheduled and she has been running out of wound care supplies often lately and has had to make do with using OTC Maxi-pads instead Patient has expressed her dissatisfaction with the Wound Clinic but due to insurance restrictions, she is not able to go to the wound clinic at [facility] or [facility] Have advised patient to try to reach out to the [facility] to schedule her appointment with them CATARINA Will start her in the meantime again on oral doxycycline 100 mg BID x 14 days (2) Asthma: Code(s): J45.909 - Unspecified asthma, uncomplicated Category: Medical Qualifiers: Asthma complication type: unspecified Asthma persistence: persistent Asthma severity: moderate Qualified Code(s): J45.40 - Moderate persistent asthma, uncomplicated Plan: Better controlled lately Continue Spiriva Respimat 2.5 mcg 2 puffs once a day, Ventolin HFA 2 puffs 4 times a day as needed and Montelukast 10 mg QD Continue nebulization Tx with Duoneb up to 4 times a day as needed (3) Coronary atherosclerosis: Comment: Cardiac cath done in 2017 showed moderate ostial left main disease at 40-50% angiographically, moderate mid RCA disease at 60%, mild LCX disease, normal LVEDP; moderate left main and RCA disease seem unrelated to the presentation as V gram suggests mid-cavitary Takotsubo's cardiomyopathy Recommend conservative medical treatment for CAD with aspirin, statins and risk factor modification Code(s): I25.10 - Atherosclerotic heart disease of [place] coronary artery without angina pectoris Category: Medical Qualifiers: Associated angina: unspecified whether angina present Coronary Disease-Associated Artery/Lesion type: [place] artery [place] vs. transplanted heart: [place] heart Qualified Code(s): I25.10 - Atherosclerotic heart disease of [place] coronary artery without angina pectoris Plan: Continue Aspirin 81 mg QD and Metoprolol ER 100 mg QD She was started on Atorvastatin 20 mg QD by cardiology last year but she could not tolerate the medication due to side effects (myalgia) and she stopped taking it eventually Her total and LDL cholesterol levels were at 219 mg/dl and 124 mg/dl respectively when they were last checked in July 2019 and she has not been able to get these rechecked since Have instructed patient to try and get her follow up labs done CATARINA Follow-up with cardiology at [facility] as scheduled (4) Takotsubo cardiomyopathy: Comment: Echocardiogram done showed reduced ejection fraction of 25-35% with regional wall motion abnormalities Code(s): I51.81 - Takotsubo syndrome Category: Medical Plan: Patient currently appears compensated based on her current symptoms; they have improved with IV diuresis in the past Reinforced fluid restriction Continue Furosemide 20 mg BID, Lisinopril 20 mg QD and Metoprolol ER 100 mg QD Repeat echocardiogram done last year on 04/30/2023 revealed (+) normal LV ejection fraction at 55-60%, with grade 1 diastolic dysfunction; normal cardiac valvular Dopplers, normal RV systolic pressure and upper limits of normal ascending aortic size at 3.6 cm; there are NO pericardial effusion Follow up with cardiology as scheduled (5) Pure hypercholesterolemia: Code(s): E78.00 - Pure hypercholesterolemia, unspecified Category: Medical Plan: Reinforced low cholesterol diet She stopped taking Atorvastatin 20 mg QD several months ago due to side effects (myalgia) Her total and LDL cholesterol levels were at 219 mg/dl and 124 mg/dl respectively when they were last checked over 4 years ago in July 2019 She was able to get her labs done back in March 2024 and her cholesterol levels appear to have improved significantly compared to a couple of weeks ago, with her total cholesterol now at 154 mg/dl and LDL cholesterol at 103 mg/dl (6) Lumbar degenerative disc disease: Code(s): M51.36 - Other intervertebral disc degeneration, lumbar region Category: Medical Qualifiers: Disc-related pain type: discogenic back pain only Qualified Code(s): M51.360 - Other intervertebral disc degeneration, lumbar region with discogenic back pain only Plan: Reinforced activity and weight-lifting restrictions Continue Morphine ER 60 mg q 8 hours PRN, Morphine IR 15 mg QID PRN and Carisoprodol 350 mg QID PRN (7) Fibromyalgia: Code(s): M79.7 - Fibromyalgia Category: Medical Plan: Reinforced regular exercise (as tolerated) and increased physical activity to help manage her fibromyalgia symptoms better although patient's activity tolerance is very limited so this is probably not realistic and not to be expected Her previous right ankle fracture and persistent right lower leg wound also make physical activities even more challenging for her Continue Gabapentin 600 mg capsules TID (8) GERD without esophagitis: Code(s): K21.9 - Gastro-esophageal reflux disease without esophagitis Category: Medical Plan: Dietary restrictions reinforced Continue Famotidine 20 mg BID PRN (9) Impaired fasting glucose: Code(s): R73.01 - Impaired fasting glucose Category: Medical Plan: Reinforced low calorie diet/exercise as tolerated Her HgbA1c was normal at 5.3% when last checked in 2019, and her FBS have been normal when checked over the past few years (10) Allergic rhinitis: Code(s): J30.9 - Allergic rhinitis, unspecified Category: Medical Qualifiers: Allergic rhinitis seasonality: unspecified Allergic rhinitis trigger: unspecified Qualified Code(s): J30.9 - Allergic rhinitis, unspecified Plan: Continue Cetirizine 10 mg QD PRN (11) Vitamin D deficiency: Code(s): E55.9 - Vitamin D deficiency, unspecified Category: Medical Plan: Continue Vitamin D3 2000 units QD (12) Vitamin B12 deficiency: Code(s): E53.8 - Deficiency of other specified B group vitamins Category: Medical Plan: Continue Vitamin B12 tablets 1000 mcg QD (13) Insomnia: Code(s): G47.00 - Insomnia, unspecified Category: Medical Qualifiers: Insomnia type: unspecified Qualified Code(s): G47.00 - Insomnia, unspecified Plan: Sleep hygiene reinforced - states that Clonazepam helps with her sleep at night (14) Anxiety: Code(s): F41.9 - Anxiety disorder, unspecified Category: Medical Plan: Continue Clonazepam 1 mg BID PRN (15) Depression: Code(s): F32.9 - Major depressive disorder, single episode, unspecified Category: Medical Qualifiers: Depression Type: unspecified Qualified Code(s): F32.9 - Major depressive disorder, single episode, unspecified Plan: Continue Citalopram 20 mg QD (16) Smoking: Code(s): F17.200 - Nicotine dependence, unspecified, uncomplicated Category: Social Hx Plan: Patient is again counseled on smoking cessation (17) Obesity (BMI 30-39.9): Code(s): E66.9 - Obesity, unspecified Category: Medical Plan: Reinforced diet; exercise and weight loss are unrealistic given patient's physical issues and comorbidities Plan Follow up in 3 months Medications: New doxycycline hyclate 100 mg PO BID 14 days 28 caps 0RF Refilled carisoprodol 350 mg PO QID 28 days PRN 112 tabs 0RF muscle pain M51.36 - Other intervertebral disc degeneration, lumbar region morphine Dispense Rx from [facility] [employer] [facility] ONLY 15 mg PO QID 28 days PRN 112 tabs 0RF pain M51.36 - Other intervertebral disc degeneration, lumbar region
== END 2024-07-13 15:21 | disposition home or self-care (01) ==
LOC: HO.HMCH 14:30
PROVIDERS: PCP Internal Medicine; Visit Provider Internal Medicine
DX: J45.40 Moderate persistent asthma, uncomplicated (principal); I25.10 Atherosclerotic heart disease of native coronary artery without angina pectoris; I51.81 Takotsubo syndrome; E66.9 Obesity, unspecified; E78.00 Pure hypercholesterolemia, unspecified; M51.360 Other intervertebral disc degeneration, lumbar region with discogenic back pain only; M79.7 Fibromyalgia; K21.9 Gastro-esophageal reflux disease without esophagitis; R73.01 Impaired fasting glucose; J30.9 Allergic rhinitis, unspecified; E55.9 Vitamin D deficiency, unspecified; E53.8 Deficiency of other specified B group vitamins

== ENCOUNTER → 2024-07-13 14:30 | Outpatient (BNVA) | payer OTHER, SELFPAY | PROVIDERS: PCP Internal Medicine; Visit Provider Internal Medicine | DX: I25.10 Atherosclerotic heart disease of native coronary artery without angina pectoris (principal); J45.40 Moderate persistent asthma, uncomplicated; I51.81 Takotsubo syndrome; E78.00 Pure hypercholesterolemia, unspecified; M51.360 Other intervertebral disc degeneration, lumbar region with discogenic back pain only; M79.7 Fibromyalgia; K21.9 Gastro-esophageal reflux disease without esophagitis; R73.01 Impaired fasting glucose; J30.9 Allergic rhinitis, unspecified; E55.9 Vitamin D deficiency, unspecified; E53.8 Deficiency of other specified B group vitamins; G47.00 Insomnia, unspecified; F41.9 Anxiety disorder, unspecified; F32.9 Major depressive disorder, single episode, unspecified; F17.210 Nicotine dependence, cigarettes, uncomplicated; E66.9 Obesity, unspecified; S81.809S Unspecified open wound, unspecified lower leg, sequela; X58.XXXS Exposure to other specified factors, sequela | CPT/HCPCS: 96127; 99212 ==

== ENCOUNTER 2024-08-11 14:45 | Outpatient (RCR) | payer OTHER, SELFPAY | END 2024-10-06 16:16 | disposition home or self-care (01) | LOC: HO.WCC 14:45 | PROVIDERS: PCP Internal Medicine; Visit Provider Surgery | DX: I87.313 Chronic venous hypertension (idiopathic) with ulcer of bilateral lower extremity (principal); I70.232 Atherosclerosis of native arteries of right leg with ulceration of calf; L97.212 Non-pressure chronic ulcer of right calf with fat layer exposed; L97.822 Non-pressure chronic ulcer of other part of left lower leg with fat layer exposed; S91.104D Unspecified open wound of right lesser toe(s) without damage to nail, subsequent encounter; L88 Pyoderma gangrenosum; L23.5 Allergic contact dermatitis due to other chemical products; G90.09 Other idiopathic peripheral autonomic neuropathy; X58.XXXD Exposure to other specified factors, subsequent encounter; Z79.2 Long term (current) use of antibiotics; Z79.891 Long term (current) use of opiate analgesic; Z79.82 Long term (current) use of aspirin; Z79.899 Other long term (current) drug therapy | CPT/HCPCS: 11042; 11043; 11045; 15271; 97597; 99212; 99213; 99214; 99215; Q4186; Q4187 ==

== ENCOUNTER 2024-09-09 15:53 | Outpatient (AMB) | payer OTHER, SELFPAY ==
--- NOTE | 2024-09-09 16:05 | A.OFFPC_ITS ---
Vital Signs 09/09/24 16:06 Height 5 ft 7 in BMI Reason not done Palliative Care Patient BP 140/62 H Blood Pressure Location Rt brachial Position Sitting Pulse 108 H Pulse Source Pulse Oximeter Temp 97.1 F Temp Source Temporal Artery Scan Pulse Oximetry (%) 95 Oxygen Delivery Method Room Air Intake Visit Reasons: [facility] 08/23 Intake Note: Patient is here for hospital discharge follow up. Patient was discharged from [facility] on 08/23/24. Job Order Clerk Required: No Senior Analyst Developer: Present Accompanied by: Spouse Allergies levofloxacin Allergy (Severe, Verified 09/09/24 16:06) throat swelling cephalexin (Keflex) Allergy (Unknown, Verified 09/09/24 16:06) Unknown ciprofloxacin Allergy (Unknown, Verified 09/09/24 16:06) Unknown codeine Allergy (Unknown, Verified 09/09/24 16:06) codeine phosphate- unknown doxycycline Allergy (Unknown, Verified 09/09/24 16:06) pruritic rash duloxetine (Cymbalta) Allergy (Unknown, Verified 09/09/24 16:06) swelling of throat and tongue NSAIDS (Non-Steroidal Anti-Inflamma Allergy (Unknown, Verified 09/09/24 16:06) Unknown penicillin V Allergy (Unknown, Verified 09/09/24 16:06) Unknown prednisone Allergy (Unknown, Verified 09/09/24 16:06) Unknown Sulfa (Sulfonamide Antibiotics) Allergy (Unknown, Verified 09/09/24 16:06) Unknown theophylline Allergy (Unknown, Verified 09/09/24 16:06) Unknown latex Allergy (Verified 09/09/24 16:06) Hives clarithromycin Adverse Reaction (Unknown, Verified 09/09/24 16:06) Unknown insect sting Allergy (Unknown, Uncoded 09/09/24 16:06) anaphylaxis Tobacco use date assessed: 09/09/24 Dental Screening Dental Screen Date: 07/13/24 HPI HPI Comments History of Present Illness Details 63 y/o Female patient who presents to e clinic today for HDF. Pt was [place] at [facility] [place] - 08/23 for an evaluation and treatment of B/L Lower extremity non-healing wounds due to cellulitis. Patient is not a great historian, per ED notes she was prescribed Doxy but wounds persisted. X-ray of the Bilateral LE obtained in the ED, showed no radiological evidence of Osteomylitis - Doppler U/S negative for DVT. Pt was never officially discharged, but left on her own because she was not happy with the care she was being provided. [place] also [place] [facility] [place] [facility] [place]. Pt c/o Inability to void, she was told she had UTI at the hospital but never received Treatment. Patient asking for Urinalysis. [facility] Medical History (Updated 09/09/24 @ 16:45 by Miryam Servin NP) Cellulitis Unable to void Allergic rhinitis Vitamin D deficiency Functional urinary incontinence Takotsubo cardiomyopathy Coronary atherosclerosis Acute kidney injury Acute respiratory failure with hypoxia and hypercapnia Acute systolic CHF (congestive heart failure) Metabolic encephalopathy Obesity (BMI 30-39.9) Smoking Depression Anxiety Insomnia Vitamin B12 deficiency Impaired fasting glucose GERD without esophagitis Pure hypercholesterolemia Fibromyalgia Lumbar degenerative disc disease Asthma Surgical History No pertinent past surgical history Family History Father Medical history unknown Mother Diabetes Hypertension CVD (cardiovascular disease) Stroke Other Mental health problem Social History (Updated 09/09/24 @ 16:14 by SKYE Roman) Housing: House Alcohol intake: never Patient Tobacco Use Status: Current everyday Tobacco user Tobacco use type: Cigarette Cigarette Packs Per Day: 0.5 Cigarettes Per Day: 10 e-Cigarette/Vaping Use: Never Used Second Hand Smoke Exposure: Yes service: No Current occupational status: disabled Cognitive needs: Yes (wheelchair) Hearing needs: No Vision needs: Yes Questionnaire Thrive Questionnaire Date Thrive assessed: 07/13/24 NIKOS-7 AMB Questionnaire NIKOS-7 Date NIKOS - 7 assessed: 07/13/24 Source: Developed by Drs. Jose Chan, Shana Castro, Edison Lang and colleagues, with an educational shruthi from [employer] Review of Systems Const All systems reviewed & are unremarkable except as noted in HPI and below Physical exam (Primary Care) Vital Signs: Last Vital Signs Temp 97.1 F 09/09/24 16:06 Pulse 108 H 09/09/24 16:06 BP 140/62 H 09/09/24 16:06 Pulse Ox 95 09/09/24 16:06 Oxygen Delivery Method Room Air 09/09/24 16:06 Tobacco/Smoking Status: Tobacco use Status Tobacco use date assessed 09/09/24 09/09/24 16:15 Patient Tobacco Use Status Current everyday Tobacco 09/09/24 16:15 Tobacco use type Cigarette 09/09/24 16:15 e-Cigarette/Vaping Use Never Used 09/09/24 16:15 Thrive Assessment: Date of Thrive Assessment Date Thrive assessed 07/13/24 09/09/24 16:15 Const General: no acute distress Orientation/consciousness: patient oriented x3 Limitations: wheelchair Resp Effort & Inspection: normal respiratory effort Auscultation: clear to auscultation bilaterally Cardio Heart sounds: S1 normal heart sound present and S2 normal heart sound present Skin Wounds: wounds noted (B/L LE - dressings are on) Neuro General: patient oriented x3 and moves all extremities Psych Speech and movement: Normal speech and movement present Coding Level of Care Code Est Pt Level 4 (78787) Diagnoses Cellulitis L03.90 Site of cellulitis: extremity Site of cellulitis of extremity: lower extremity Unable to void R33.9 Time Spent (min) 20 Assessment & Plan Assessment & Plan (1) Cellulitis: Code(s): L03.90 - Cellulitis, unspecified Category: Medical Qualifiers: Site of cellulitis: extremity Site of cellulitis of extremity: lower ex tremity Plan: [facility] [place] clinic - had dressings changed today. Per ED notes she was treated with Abx (2) Unable to void: Code(s): R33.9 - Retention of urine, unspecified Category: Medical Plan: Sent patient for Urinalysis and Urine culture. Orders: Orders UA CC w/rflx Micro + Cult Today R33.9 - Retention of urine, unspecified Medications: Refilled benzonatate 200 mg PO BID-TID PRN 30 caps 1RF cough diphenhydramine HCl 25 mg PO TID PRN 90 tabs 1RF allergy symptoms epinephrine (EpiPen 2-Jonathon) for 2 doses-USE DIRECTED 0.3 mg (0.3 mL) IM ONCE 2 ea 0RF
[2024-09-09 16:06] VITALS: BP 140/62; PULSE 108; TEMP 36.2; O2SAT 95
== END 2024-09-09 17:29 | disposition home or self-care (01) ==
LOC: HO.HMCH 15:54
PROVIDERS: PCP Internal Medicine; Visit Provider Nurse Practitioner Family
DX: L03.90 Cellulitis, unspecified (principal); R33.9 Retention of urine, unspecified

== ENCOUNTER 2024-09-09 15:53 | Outpatient (REF) | payer OTHER, SELFPAY ==
[2024-09-09 17:35] LABS: Appearance Urine Clear; Glucose Urine UA Negative (Negative); PH 5.5 (5.0-9.0); Specific Gravity - Urine 1.010 (1.005-1.025); UMIC TRIGGER UACC YES
[2024-09-09 17:37] LABS: UACC Culture Trigger YES
== END 2024-09-09 15:54 | disposition home or self-care (01) ==
LOC: HO.LAB 15:53
PROVIDERS: PCP Internal Medicine; Visit Provider Nurse Practitioner Family
DX: L03.116 Cellulitis of left lower limb (principal); L03.115 Cellulitis of right lower limb; R33.9 Retention of urine, unspecified
CPT/HCPCS: 81001; 87086; 99212